=== PATIENT | female | born 1945 | race Caucasian/White ===

== ENCOUNTER 2017-11-09 10:04 | Inpatient (IN) | payer MEDICARE, BC ==
[2017-11-09] MEDS ORDERED: Sodium Chloride 0.9% 5 ML Syringe FLUSH PRN (17:33)
[2017-11-09] MEDS ORDERED: Potassium Chloride 20 MEQ in Premix Bag 1 BAG IV ONE ×3 (17:44→22:00)
[2017-11-09] MEDS ORDERED: Sodium Chloride 0.9% 500 ML IV SCH (18:00)
[2017-11-09] MEDS ORDERED: Nicotine 21 MG/24 Hr Patch ONE (19:44)
[2017-11-09] MEDS ORDERED: Simethicone 80 MG Tab.Chew ONE (19:45)
[2017-11-09] MEDS ORDERED: Atropine/Diphenoxylate 0.025-2.5 MG Tab ONE (19:46)
[2017-11-09] MEDS: Simethicone 80 MG Tab.Chew PO SCH ×2 (19:51→22:07)
[2017-11-09] MEDS: Nicotine 21 MG/24 Hr Patch TRDERM SCH (19:52)
[2017-11-09] MEDS: Atropine/Diphenoxylate 0.025-2.5 MG Tab PO PRN (19:53)
[2017-11-09] MEDS: Acetaminophen 325 MG Tab PO PRN (22:18)
[2017-11-09] MEDS: Zolpidem 5 MG Tab PO PRN (22:18)
[2017-11-10] MEDS: Magnesium Sulfate/Water 2 GM in Premix Bag 1 BAG IV ONE ×2 (01:07→01:59)
[2017-11-10] MEDS: Acetaminophen 325 MG Tab PO PRN ×2 (06:07→22:16)
[2017-11-10] MEDS: Atropine/Diphenoxylate 0.025-2.5 MG Tab PO PRN ×3 (06:16→20:39)
[2017-11-10] MEDS: Levothyroxine 50 MCG Tab PO SCH (07:41)
[2017-11-10 07:53] LABS: ANION GAP 18.4 mmol/L (5-15); CHLORIDE,CL 104 mmol/L (98-115); SODIUM,NA 149 mmol/L (136-145)
[2017-11-10] MEDS: Nicotine 21 MG/24 Hr Patch TRDERM SCH (09:59)
[2017-11-10] MEDS: Simethicone 80 MG Tab.Chew PO SCH ×4 (10:00→20:41)
[2017-11-10] MEDS: Pantoprazole 40 MG Vial IVPUSH SCH (10:07)
[2017-11-10] MEDS: Dextrose 5% in Water 1,000 ML IV SCH (10:21)
--- NOTE | 2017-11-10 12:03 | PN ---
11/10/2017 PATIENT NAME: WESLEY ORR CHIEF COMPLAINT: No longer having bright red blood per rectum. No diarrhea last night. No fever. Feels quite good today. HISTORY OF PRESENT ILLNESS: This 72-year-old female was admitted through the [facility]. She has seen Brenda Damon yesterday, nurse practitioner, and was basically admitted for ongoing diarrhea and electrolyte disturbance, hypokalemia, hypomagnesemia along with bright red blood per rectum. She did have approximately 2 g drop in her hemoglobin. The patient was recently discharged from [facility] for a colitis, which at that time she contributed to likely "food poisoning" when she ate some potato salad and her hospital course was not complicated. At that time, she was released on a bland diet. However, she continued to have diarrhea. Diagnostics while in the hospital; we did perform an MRCP, which did show an abnormal dilation of the intra and extra hepatic biliary system to the level of the ampulla. However, she had no obstructing stone. No acute cholecystitis. No mass was identified. She was discharged with expectation of receiving an ERCP as outpatient, however, she has not had this yet as of today. Yesterday, she was complaining of a poor appetite and fatigue, so abdominal distention along with abdominal pain. However, she does not have abdominal pain today. She noticed some bleeding in her stool, bright red on exam in the clinic. It was noted for her to have an external hemorrhoid without any bleeding or inflammation. PERTINENT CLINICAL WORKUP/FINDINGS: Include hemoglobin 12.1, RBC 3.6, white count 7.7, no neutrophilia. Sodium 136, potassium 2.9, BUN 2, creatinine 0.56, magnesium 1.6. The patient did have a positive lactoferrin on previous admission. Two full occult blood last night were positive. PHYSICAL EXAMINATION: VITAL SIGNS: Today, the patient is a full code. Temperature 97.9, blood pressure 135/78, O2 saturations 94% on room air, respiratory rate 20. GENERAL: The patient is alert and oriented. Does have slight pallor to her lower conjunctiva. LUNGS: Mild crackles lower bases, more fibrotic, resembling atelectasis. CV: Grade 1/6 murmur. SKIN: Slightly pallor. GI: No distention. No splenomegaly. Liver borders appear normal. Very hyperactive bowel tones. Negative rebound. Negative psoas. LOWER EXTREMITIES: No edema. LABORATORY DATA: Labs this morning includes hemoglobin 11.6, hematocrit 34.2. Sodium 149, potassium 4.2, BUN 1, creatinine 0.51. Drug clearance is 86, magnesium 2.2, calcium 8.0. PRIMARY HOSPITAL PROBLEMS: Diarrhea, dehydration, electrolyte disturbance, alcohol abuse, tobacco dependency, hypothyroidism. MEDICAL DECISION MAKING/PLAN: Discontinue telemetry. Add PPI therapy. Collect for C diff. Administer free water due to her hyponatremia. Monitor for any hemodynamic instability. Monitor for any further ongoing diarrhea or rectal bleeding. Continue with clear liquids for now. Doubtful for any concerning enteropathogens or any acute abdomen right now. We will hold off for any surgical consultation. However, patient will need outpatient ERCP. Monitor for any ongoing electrolyte disturbance and antidiarrheals today. /[id number]/MODL
[2017-11-10] MEDS: Zolpidem 5 MG Tab PO PRN (22:16)
[2017-11-11] MEDS: Dextrose 5% in Water 1,000 ML IV SCH (02:35)
[2017-11-11] MEDS ORDERED: Magnesium Sulfate/Water 4 GM in Premix Bag 1 BAG IV SCH (03:00)
[2017-11-11] MEDS: Acetaminophen 325 MG Tab PO PRN ×3 (03:53→22:19)
[2017-11-11] MEDS: Atropine/Diphenoxylate 0.025-2.5 MG Tab PO PRN ×3 (03:53→16:15)
[2017-11-11] MEDS: Levothyroxine 50 MCG Tab PO SCH (06:42)
[2017-11-11 07:46] LABS: ANION GAP 12.1 mmol/L (5-15); CHLORIDE,CL 104 mmol/L (98-115); SODIUM,NA 143 mmol/L (136-145)
[2017-11-11] MEDS: Nicotine 21 MG/24 Hr Patch TRDERM SCH (08:19)
[2017-11-11] MEDS: Simethicone 80 MG Tab.Chew PO SCH ×4 (08:21→20:11)
[2017-11-11] MEDS: Pantoprazole 40 MG Vial IVPUSH SCH ×2 (08:22→20:20)
[2017-11-11] MEDS ORDERED: Pantoprazole 40 MG in Sodium Chloride 0.9% 100 ML IV SCH (09:15)
[2017-11-11] MEDS ORDERED: Dextrose 5% in Water 1,000 ML IV SCH (10:00)
[2017-11-11] MEDS ORDERED: Potassium Chloride 100 ML IV ONE ×2 (10:00→12:00)
--- NOTE | 2017-11-11 12:17 | PN ---
11/11/2017 PATIENT NAME: EWSLEY ORR SUBJECTIVE: This is a 72-year-old female patient who was in the hospital about a week ago with diarrhea and colitis. She was discharged home. She stated that she had three or four days where she felt really well. She had no diarrheal stools, and then on Tuesday, she started having some diarrheal stools with some bright red blood per rectum. She was concerned, so she went to clinic on Tuesday. At that time, she was noted that she had a 2 g drop in her hemoglobin. She was having some bright red blood per rectum. She just did not feel good. She had some electrolyte disturbances, her potassium was low and her magnesium was low, so she was readmitted again to the hospital for observation status. Now today on rounds, the patient states that she is no longer having a bright red stool from her rectum, but she says that she is still having diarrhea. Her abdominal pain is better, but she just does not feel good. Her stomach still rumbles a lot and her stools are just not yet formed. She denies any fever or chills. She says that she is always cold. OBJECTIVE: VITAL SIGNS: Today, her temperature is 98.3, pulse is 72, blood pressure is 99/51, respiratory rate is 16, oxygen saturation on room air is 92- 95%. GENERAL: This is an elderly white female in no acute distress. LUNGS: Sounds are very diminished throughout lung sun. HEART: Tones are distant but regular rate and rhythm. No murmurs identified. ABDOMEN: Soft, nontender, nondistended. Bowel sounds are hyperactive. EXTREMITIES: No pedal edema noted on exam. LABORATORY DATA: The patient's lab work that was obtained today. Her hemoglobin was low at 10.9, yesterday it was 11.6. The patient's chemistry panel shows a sodium within normal range at 143, potassium is low at 2.7. The patient's BUN is 0 and creatinine is 0.50. Calcium is 7.44, but a corrected calcium is 8.5. Her total protein is 5.3, and her albumin is low at 2.68. IMPRESSION AND PLAN: 1. Would be diarrhea with gastrointestinal bleeding. Plan: The patient's hemoglobin is down. Today, it is 10.9, and yesterday 11.6, it was down in the clinic also. We will continue with simethicone for gas and distention 120 mg before meals and bedtime. I increased her Protonix IV to 40 mg IV every 12 hours due to her active bleeding. Her stool for C. diff was negative. Her occult blood was positive. I did order a stool culture and a stool for wbcs. I do think the patient is going to be need to set up for a colonoscopy to assess the lower GI bleeding. She can continue with Lomotil as needed for diarrhea. I did increase her diet from a liquid diet to a soft diet with no red food dye. The patient did have an MRCP performed previously, which did not show any masses or stones. 2. Low kidney function test. The patient's BUN is 0, creatinine is 0.50. I did stop her IV fluids. She is diuresing. She states that she starting to lose some weight. I am going to repeat her lab work in the morning to monitor her fluid electrolyte status. 3. Hypokalemia. Plan: The patient's potassium today is low at 2.7. I am going to give her a potassium cocktail of 40 mEq IV today, and recheck her potassium level at 6:00 p.m. this evening. Her corrected calcium was within normal range at 8.5. Chronic conditions. 4. History of smoker. Plan: We are going to have the patient wear nicotine patch 21 mg while in the hospital. 5. History of sleep disorder. Plan: Continue with Ambien 10 mg at bedtime as needed for sleep. 6. History of newly diagnosed hypothyroidism when she is in the hospital a week ago. We will continue with levothyroxine 50 mcg daily. OVERALL PLAN: I did increase the patient's IV Protonix to twice a day. I increased her diet to just a soft diet. She can continue with Lomotil as needed. Repeat lab work in the morning. I did add a stool culture and stool for wbcs., and I discussed with Dr. Amari Owens in regard to possible colonoscopy. The patient does have repeat labs ordered for the morning. We will recheck her potassium level after potassium cocktail later this evening. /[id number]/MODL
[2017-11-11] MEDS ORDERED: Atropine/Diphenoxylate 0.025-2.5 MG Tab PO PRN (20:15)
[2017-11-11] MEDS: Sodium Chloride 0.9% 500 ML IV SCH (20:27)
[2017-11-11] MEDS: Potassium Chloride 20 MEQ in Premix Bag 1 BAG IV SCH ×2 (20:27→23:49)
[2017-11-11] MEDS: Zolpidem 5 MG Tab PO PRN (22:18)
[2017-11-12] MEDS ORDERED: Magnesium Sulfate/Water 4 GM in Premix Bag 1 BAG IV SCH (03:00)
[2017-11-12] MEDS: Potassium Chloride 20 MEQ in Premix Bag 1 BAG IV SCH (04:17)
[2017-11-12] MEDS: Levothyroxine 50 MCG Tab PO SCH (06:31)
[2017-11-12] MEDS: Sodium Chloride 0.9% 500 ML IV SCH (06:35)
[2017-11-12] MEDS: Nicotine 21 MG/24 Hr Patch TRDERM SCH (08:31)
[2017-11-12] MEDS: Simethicone 80 MG Tab.Chew PO SCH ×4 (08:32→20:33)
[2017-11-12] MEDS: Pantoprazole 40 MG Vial IVPUSH SCH ×2 (08:32→20:43)
[2017-11-12 09:41] LABS: ANION GAP 11.5 mmol/L (5-15); CHLORIDE,CL 105 mmol/L (98-115); SODIUM,NA 142 mmol/L (136-145)
[2017-11-12] MEDS ORDERED: Magnesium Sulfate/Water 4 GM in Premix Bag 0.5 BAG IV ONE (11:00)
--- NOTE | 2017-11-12 11:35 | PCM.PN ---
- General Info Date of Service: 11/12/17 Subjective Update: MS. Arciniega reports overall feeling better, though still with significant cold intolerance, generalized weakness, and fatigue. Diarrhea stable. No further visible rectal bleeding. Occasional mild abdominal cramping which self resolves. Tolerating diet fairly well, but appetite poor. No new concerns. Nursing reports patient reluctance to get out of bed and ambulate much outside of going to the bathroom. - Patient Data Vitals - Most Recent: Last Vital Signs Temp 37.0 C 11/12/17 06:49 Pulse 86 11/12/17 06:49 Resp 16 11/12/17 06:49 BP 137/83 11/12/17 06:49 Pulse Ox 93 L 11/12/17 06:49 Weight - Most Recent: 56.427 kg I&O - Last 24 Hours: Intake & Output 11/11/17 11/12/17 11/12/17 22:59 06:59 14:59 Intake Total 485 750 Output Total 925 425 Balance -440 325 Lab Results Last 24 Hours: Laboratory Results - last 24 hr 11/11/17 11/12/17 11/12/17 Range/Units 18:45 09:05 09:05 WBC 5.7 (5.0-10.0) 10^3/uL RBC 3.73 L (3.80-5.50) 10^6/uL Hgb 12.2 (12.0-16.0) g/dL Hct 36.3 L (37.0-47.0) % MCV 97.3 H (82.0-92.0) fL MCH 32.7 H (27.0-31.0) pg MCHC 33.6 (32.0-36.0) g/dL RDW 14.2 (11.5-14.5) % Plt Count 592 H (150-300) 10^3/uL MPV 7.2 L (7.4-10.4) fL Neut % (Auto) 57.4 (50.0-70.0) % Lymph % (Auto) 29.3 (20.0-40.0) % [place] % (Auto) 11.0 H (2.0-8.0) % Eos % (Auto) 1.4 (1.0-3.0) % Baso % (Auto) 0.9 (0.0-1.0) % Neut # (Auto) 3.2 (2.5-7.0) 10^3/uL Lymph # (Auto) 1.7 (1.0-4.0) 10^3/uL [place] # (Auto) 0.6 (0.1-0.8) 10^3/uL Eos # (Auto) 0.1 (0.1-0.3) 10^3/uL Baso # (Auto) 0.1 (0.0-0.1) 10^3/uL Sodium 142 (136-145) mmol/L Potassium 3.0 L 4.3 (3.3-5.3) mmol/L Chloride 105 (98-115) mmol/L Carbon Dioxide 29.8 (21.0-32.0) mmol/L Anion Gap 11.5 (5-15) mmol/L BUN 1 L* (6-25) mg/dL Creatinine 0.51 (0.51-1.17) mg/dL Est Cr Clr Drug Dosing 86.21 mL/min Estimated GFR (MDRD) > 60 mL/min Glucose 129 mg/dL Calcium 8.2 L (8.7-10.3) mg/dL Magnesium 1.9 1.9 (1.8-2.4) mg/dL Total Bilirubin 0.3 (0.2-1.0) mg/dL AST 21 (15-37) U/L ALT 15 (12-78) U/L Alkaline Phosphatase 95 (46-116) IU/L Total Protein 6.4 (6.4-8.2) g/dL Albumin 3.21 (3.00-4.80) g/dL [facility] Results Last 24 Hours: Microbiology 11/11/17 11:26 Stool for WBCs - Final Stool / Feces Med Orders - Current: Current Medications Acetaminophen (Tylenol) 650 mg PO Q4H PRN PRN Reason: Abdominal Pain Last Admin: 11/11/17 22:19 Dose: 650 mg Bisacodyl (Dulcolax) 10 mg PO ONETIME ONE Stop: 11/12/17 16:01 Bisacodyl (Dulcolax) 10 mg PO ONETIME ONE Stop: 11/13/17 19:01 Diphenoxylate HCl/Atropine (Lomotil 0.025-2.5 Mg) 1 tab PO Q4H PRN PRN Reason: Diarrhea Stop: 11/12/17 12:00 Sodium Chloride (Normal Saline) 500 mls @ 25 mls/hr IV ASDIRECTED [facility] Last Admin: 11/12/17 06:35 Dose: 50 mls/hr Levothyroxine Sodium (Synthroid) 50 mcg PO ACBREAKFAST [facility] Last Admin: 11/12/17 06:31 Dose: 50 mcg Nicotine (Habitrol) 21 mg TRDERM DAILY [facility] Last Admin: 11/12/17 08:31 Dose: 21 mg Pantoprazole Sodium (Protonix Iv) 40 mg IVPUSH BID [facility] Last Admin: 11/12/17 08:32 Dose: 40 mg Polyethylene Glycol (Miralax) 238 gm PO ONETIME [facility] Stop: 11/13/17 18:01 Simethicone (Simethicone) 120 mg PO QID [facility] Last Admin: 11/12/17 08:32 Dose: 120 mg Sodium Chloride (Syrex Flush) 5 ml FLUSH Q8HR PRN PRN Reason: Keep Vein Open Zolpidem Tartrate (Ambien) 10 mg PO BEDTIME PRN PRN Reason: SLEEP Last Admin: 11/11/17 22:18 Dose: 10 mg Discontinued Medications Diphenoxylate HCl/Atropine (Lomotil 0.025-2.5 Mg) 1 tab PO Q6H PRN PRN Reason: Diarrhea Last Admin: 11/10/17 06:16 Dose: 1 tab Diphenoxylate HCl/Atropine (Lomotil 0.025-2.5 Mg) Confirm Administered Dose 1 tab .ROUTE .STK-MED ONE Stop: 11/09/17 19:47 Last Admin: 11/09/17 19:54 Dose: Not Given Diphenoxylate HCl/Atropine (Lomotil 0.025-2.5 Mg) 1 tab PO Q6H PRN PRN Reason: Diarrhea Last Admin: 11/11/17 16:15 Dose: 1 tab Potassium Chloride 20 meq/ (Premix) 100 mls @ 50 mls/hr IV ONETIME ONE Stop: 11/09/17 19:43 Last Admin: 11/09/17 17:59 Dose: 50 mls/hr Potassium Chloride 20 meq/ (Premix) 100 mls @ 50 mls/hr IV ONETIME ONE Stop: 11/09/17 21:59 Last Admin: 11/09/17 20:02 Dose: 50 mls/hr Sodium Chloride (Normal Saline) 500 mls @ 50 mls/hr IV ASDIRECTED [facility] Last Admin: 11/09/17 17:59 Dose: 50 mls/hr Potassium Chloride 20 meq/ (Premix) 100 mls @ 50 mls/hr IV ONETIME ONE Stop: 11/09/17 23:59 Last Admin: 11/09/17 22:37 Dose: 50 mls/hr Magnesium Sulfate 2 gm/ Premix 50 mls @ 150 mls/hr IV ONETIME ONE Stop: 11/09/17 18:19 Last Admin: 11/10/17 01:59 Dose: Not Given Dextrose/Water (Dextrose 5% In Water) 1,000 mls @ 62 mls/hr IV ASDIRECTED [facility] Last Admin: 11/11/17 02:35 Dose: 62 mls/hr Potassium Chloride (Kcl 20 Meq In Water 100 Ml) 100 mls @ 50 mls/hr IV ONETIME ONE Stop: 11/11/17 11:59 Last Admin: 11/11/17 09:55 Dose: 50 mls/hr Potassium Chloride (Kcl 20 Meq In Water 100 Ml) 100 mls @ 50 mls/hr IV ONETIME ONE Stop: 11/11/17 13:59 Last Admin: 11/11/17 12:05 Dose: 50 mls/hr Dextrose/Water (Dextrose 5% In Water) 1,000 mls @ 25 mls/hr IV ASDIRECTED [facility] Stop: 11/11/17 14:00 Magnesium Sulfate 4 gm/ Premix 100 mls @ 25 mls/hr IV ASDIRECTED [facility] Stop: 11/11/17 06:59 Last Admin: 11/11/17 23:42 Dose: Not Given Potassium Chloride 20 meq/ (Premix) 100 mls @ 50 mls/hr IV Q2H [facility] Stop: 11/12/17 01:44 Last Admin: 11/12/17 04:17 Dose: 50 mls/hr Magnesium Sulfate 4 gm/ Premix 100 mls @ 25 mls/hr IV ASDIRECTED [facility] Stop: 11/12/17 06:59 Magnesium Sulfate 4 gm/ Premix 0 mls @ 200 mls/hr IV ONETIME ONE Stop: 11/12/17 11:01 Nicotine (Habitrol) Confirm Administered Dose 21 mg .ROUTE .STK-MED ONE Stop: 11/09/17 19:45 Last Admin: 11/09/17 19:53 Dose: Not Given Pantoprazole Sodium (Protonix Iv) 40 mg IVPUSH DAILY [facility] Last Admin: 11/11/17 08:22 Dose: 40 mg Simethicone (Simethicone) Confirm Administered Dose 160 mg .ROUTE .STK-MED ONE Stop: 11/09/17 19:46 Last Admin: 11/09/17 19:54 Dose: Not Given - Exam Physical Findings Comments:: GENERAL: Pale, tired appearing elderly white female appearing slightly older than stated age sitting on hospital bed in no acute distress. HEENT: NC/AT. Conjunctiva clear. Nares patent without dischareg. Mucous membranes moist. CV: RRR, 1/6 systolic murmur at base without raidation, no rubs or gallops, 2+ radial pulses. PULMONARY: Normal effort, clear to auscultation bilaterally. ABDOMEN: Positive bowel sounds, mildly distended, nontender, no rebound/rigidity /guarding. EXTREMITIES: No edema, cyanosis, clubbing. MSK: Moves all extremities well. NEUROLOGICAL: No obvious defiicts. DERMATOLOGIC: No rash. PSYCHIATRIC: Alert, interactive, mildly flattened affect. - Problem List Review Problem List Initiated/Reviewed/Updated: Yes - My Orders Last 24 Hours: My Active Orders 11/11/17 20:00 Sodium Chloride 0.9% [Normal Saline] 500 ml IV ASDIRECTED - Assessment Assessment:: HPI Summary: Ms. Arciniega is a 72yoF with recently diagnosed severe hypothyroidism and recent hospitalization for colitis from 11/01/17 to 11/05/17 who was seen in the clinic on 11/09/17 for rectal bleeding and electrolyte abnormalities for which she was subsequently admitted. Hospitalization problems: # GI bleeding: Patient reported BRBPR and fecal occult positive. Scheduled for colonoscopy on 11/14. Continue PPI BID. # Anemia, acute blood loss: Hgb jose l 10.9 on 11/11. Improved today to 12.2. Recheck tomorrow. # Hypokalemia and hypomagnesemia: Likely related to several weeks of diarrhea and chronic alcohol use. Significant IV replacement has been given with improvement today. Recheck tomorrow. # Colitis: Onset of diarrhea 10/19. CT and MRI performed last hospitalization with colitis. Stool studies with +lactoferrin, but otherwise negative for bacterial etiology on culture and C. difficile testing. Ongoing, but improved. Continue loperamide prn. # Thrombocytosis: Likely reactive. Recheck tomorrow. # Intrahepatic ductal dilation: Noted on CT and MRI performed last hospitalization. LFTs without abnormality. No localized abdominal pain or indication for surgical consultation at this time. Plan on outpatient ERCP, as previously recommended by gastroenterology. # Hypothyroidism: Prior TSH >100. Continue levothyroxine. # Chronic alcohol use: Prior documentation noting significant chronic alcohol use. Will further clarify tomorrow. No current evidence of withdrawal. # Deconditioning: Consider PT consult if not improved. Chronic, stable problems: # Tobacco dependence: Precontemplative stage of change. Continue nicotine patch during hospitalization. # Insomnia: Continue zolpidem prn. Hospitalization details: # FEN: NS TKO. Electrolytes as above. Soft diet. # PPX: DVT with non-pharmacological ppx in setting of GIB. # Code status: FULL. # Disposition: Continue on inpatient status for ongoing close monitoring of GIB and electrolytes, with plan to perform colonoscopy on 11/14 and subsequent discharge if ongoing clinical improvement.
[2017-11-12] MEDS ORDERED: Bisacodyl 5 MG Tab PO ONE (16:00)
[2017-11-12] MEDS: Zolpidem 5 MG Tab PO PRN (22:25)
[2017-11-12] MEDS: Acetaminophen 325 MG Tab PO PRN (22:26)
[2017-11-13] MEDS: Levothyroxine 50 MCG Tab PO SCH (06:30)
[2017-11-13 07:45] LABS: ANION GAP 11.2 mmol/L (5-15); CHLORIDE,CL 106 mmol/L (98-115); SODIUM,NA 141 mmol/L (136-145)
[2017-11-13] MEDS: Simethicone 80 MG Tab.Chew PO SCH ×4 (09:35→20:45)
[2017-11-13] MEDS: Nicotine 21 MG/24 Hr Patch TRDERM SCH (09:36)
[2017-11-13] MEDS: Pantoprazole 40 MG Vial IVPUSH SCH ×2 (09:37→20:50)
[2017-11-13] MEDS ORDERED: Polyethylene Glycol 3350 Powder 238 GM Bot PO SCH (16:00)
--- NOTE | 2017-11-13 18:31 | PCM.PN ---
- General Info Date of Service: 11/13/17 Subjective Update: Ms. Arciniega reports that the prep for colonoscopy is going fair. Having difficulty drinking the liquid due to feeling like she doesn't have thirst to want anymore, but is not having nausea or abdominal pain. Ongoing significant cold intolerance, generalized weakness, and fatigue. No further visible rectal bleeding. Nursing reports ongoing patient reluctance to get out of bed and ambulate much outside of going to the bathroom, as well as mild perirectal erythema since starting the prep which has improved with barrier cream. - Patient Data Vitals - Most Recent: Last Vital Signs Temp 36.9 C 11/13/17 15:52 Pulse 79 11/13/17 15:52 Resp 16 11/13/17 15:52 BP 125/75 11/13/17 15:52 Pulse Ox 93 L 11/13/17 15:52 Weight - Most Recent: 56.427 kg I&O - Last 24 Hours: Intake & Output 11/13/17 11/13/17 11/13/17 06:59 14:59 22:59 Intake Total 150 1410 Output Total 600 Balance -450 1410 Lab Results Last 24 Hours: Laboratory Results - last 24 hr 11/13/17 11/13/17 Range/Units 07:00 07:00 WBC 5.1 (5.0-10.0) 10^3/uL RBC 3.74 L (3.80-5.50) 10^6/uL Hgb 12.0 (12.0-16.0) g/dL Hct 36.3 L (37.0-47.0) % MCV 97.1 H (82.0-92.0) fL MCH 32.2 H (27.0-31.0) pg MCHC 33.2 (32.0-36.0) g/dL RDW 13.9 (11.5-14.5) % Plt Count 613 H (150-300) 10^3/uL MPV 7.8 (7.4-10.4) fL Neut % (Auto) 44.9 L (50.0-70.0) % Lymph % (Auto) 38.4 (20.0-40.0) % [place] % (Auto) 13.1 H (2.0-8.0) % Eos % (Auto) 1.9 (1.0-3.0) % Baso % (Auto) 1.7 H (0.0-1.0) % Neut # (Auto) 2.2 L (2.5-7.0) 10^3/uL Lymph # (Auto) 2.0 (1.0-4.0) 10^3/uL [place] # (Auto) 0.7 (0.1-0.8) 10^3/uL Eos # (Auto) 0.1 (0.1-0.3) 10^3/uL Baso # (Auto) 0.1 (0.0-0.1) 10^3/uL Sodium 141 (136-145) mmol/L Potassium 3.8 (3.3-5.3) mmol/L Chloride 106 (98-115) mmol/L Carbon Dioxide 27.6 (21.0-32.0) mmol/L Anion Gap 11.2 (5-15) mmol/L BUN 1 L* (6-25) mg/dL Creatinine 0.58 (0.51-1.17) mg/dL Est Cr Clr Drug Dosing 75.80 mL/min Estimated GFR (MDRD) > 60 mL/min Glucose 78 mg/dL Calcium 8.1 L (8.7-10.3) mg/dL Magnesium 2.2 (1.8-2.4) mg/dL [facility] Results Last 24 Hours: Microbiology 11/11/17 11:26 Stool Aerobic Culture - Preliminary Stool / Feces Med Orders - Current: Current Medications Acetaminophen (Tylenol) 650 mg PO Q4H PRN PRN Reason: Abdominal Pain Last Admin: 11/12/17 22:26 Dose: 650 mg Bisacodyl (Dulcolax) 10 mg PO ONETIME ONE Stop: 11/13/17 19:01 Sodium Chloride (Normal Saline) 500 mls @ 25 mls/hr IV ASDIRECTED [facility] Last Admin: 11/12/17 06:35 Dose: 50 mls/hr Levothyroxine Sodium (Synthroid) 50 mcg PO ACBREAKFAST [facility] Last Admin: 11/13/17 06:30 Dose: 50 mcg Nicotine (Habitrol) 21 mg TRDERM DAILY [facility] Last Admin: 11/13/17 09:36 Dose: 21 mg Pantoprazole Sodium (Protonix Iv) 40 mg IVPUSH BID [facility] Last Admin: 11/13/17 09:37 Dose: 40 mg Simethicone (Simethicone) 120 mg PO QID [facility] Last Admin: 11/13/17 16:03 Dose: 120 mg Sodium Chloride (Syrex Flush) 5 ml FLUSH Q8HR PRN PRN Reason: Keep Vein Open Zolpidem Tartrate (Ambien) 10 mg PO BEDTIME PRN PRN Reason: SLEEP Last Admin: 11/12/17 22:25 Dose: 10 mg Discontinued Medications Bisacodyl (Dulcolax) 10 mg PO ONETIME ONE Stop: 11/12/17 16:01 Last Admin: 11/12/17 15:45 Dose: 10 mg Diphenoxylate HCl/Atropine (Lomotil 0.025-2.5 Mg) 1 tab PO Q6H PRN PRN Reason: Diarrhea Last Admin: 11/10/17 06:16 Dose: 1 tab Diphenoxylate HCl/Atropine (Lomotil 0.025-2.5 Mg) Confirm Administered Dose 1 tab .ROUTE .STK-MED ONE Stop: 11/09/17 19:47 Last Admin: 11/09/17 19:54 Dose: Not Given Diphenoxylate HCl/Atropine (Lomotil 0.025-2.5 Mg) 1 tab PO Q6H PRN PRN Reason: Diarrhea Last Admin: 11/11/17 16:15 Dose: 1 tab Diphenoxylate HCl/Atropine (Lomotil 0.025-2.5 Mg) 1 tab PO Q4H PRN PRN Reason: Diarrhea Stop: 11/12/17 12:00 Potassium Chloride 20 meq/ (Premix) 100 mls @ 50 mls/hr IV ONETIME ONE Stop: 11/09/17 19:43 Last Admin: 11/09/17 17:59 Dose: 50 mls/hr Potassium Chloride 20 meq/ (Premix) 100 mls @ 50 mls/hr IV ONETIME ONE Stop: 11/09/17 21:59 Last Admin: 11/09/17 20:02 Dose: 50 mls/hr Sodium Chloride (Normal Saline) 500 mls @ 50 mls/hr IV ASDIRECTED [facility] Last Admin: 11/09/17 17:59 Dose: 50 mls/hr Potassium Chloride 20 meq/ (Premix) 100 mls @ 50 mls/hr IV ONETIME ONE Stop: 11/09/17 23:59 Last Admin: 11/09/17 22:37 Dose: 50 mls/hr Magnesium Sulfate 2 gm/ Premix 50 mls @ 150 mls/hr IV ONETIME ONE Stop: 11/09/17 18:19 Last Admin: 11/10/17 01:59 Dose: Not Given Dextrose/Water (Dextrose 5% In Water) 1,000 mls @ 62 mls/hr IV ASDIRECTED [facility] Last Admin: 11/11/17 02:35 Dose: 62 mls/hr Potassium Chloride (Kcl 20 Meq In Water 100 Ml) 100 mls @ 50 mls/hr IV ONETIME ONE Stop: 11/11/17 11:59 Last Admin: 11/11/17 09:55 Dose: 50 mls/hr Potassium Chloride (Kcl 20 Meq In Water 100 Ml) 100 mls @ 50 mls/hr IV ONETIME ONE Stop: 11/11/17 13:59 Last Admin: 11/11/17 12:05 Dose: 50 mls/hr Dextrose/Water (Dextrose 5% In Water) 1,000 mls @ 25 mls/hr IV ASDIRECTED [facility] Stop: 11/11/17 14:00 Magnesium Sulfate 4 gm/ Premix 100 mls @ 25 mls/hr IV ASDIRECTED [facility] Stop: 11/11/17 06:59 Last Admin: 11/11/17 23:42 Dose: Not Given Potassium Chloride 20 meq/ (Premix) 100 mls @ 50 mls/hr IV Q2H [facility] Stop: 11/12/17 01:44 Last Admin: 11/12/17 04:17 Dose: 50 mls/hr Magnesium Sulfate 4 gm/ Premix 100 mls @ 25 mls/hr IV ASDIRECTED [facility] Stop: 11/12/17 06:59 Last Admin: 11/12/17 11:37 Dose: Not Given Magnesium Sulfate 4 gm/ Premix 0 mls @ 200 mls/hr IV ONETIME ONE Stop: 11/12/17 11:01 Last Admin: 11/12/17 11:39 Dose: 25 mls/hr Nicotine (Habitrol) Confirm Administered Dose 21 mg .ROUTE .STK-MED ONE Stop: 11/09/17 19:45 Last Admin: 11/09/17 19:53 Dose: Not Given Pantoprazole Sodium (Protonix Iv) 40 mg IVPUSH DAILY [facility] Last Admin: 11/11/17 08:22 Dose: 40 mg Polyethylene Glycol (Miralax) 238 gm PO ONETIME [facility] Stop: 11/13/17 18:01 Last Admin: 11/13/17 15:54 Dose: 238 gm Simethicone (Simethicone) Confirm Administered Dose 160 mg .ROUTE .STK-MED ONE Stop: 11/09/17 19:46 Last Admin: 11/09/17 19:54 Dose: Not Given - Exam Physical Findings Comments:: GENERAL: Pale, tired appearing elderly white female appearing slightly older than stated age sitting on hospital bed in no acute distress. HEENT: NC/AT. Conjunctiva clear. Nares patent without dischareg. Mucous membranes moist. CV: RRR, 2+ radial pulses. PULMONARY: Normal effort. ABDOMEN: Mildly distended, nontender, no rebound/rigidity/guarding. EXTREMITIES: No edema, cyanosis, clubbing. MSK: Ambulates without difficulty. NEUROLOGICAL: No obvious deficits. DERMATOLOGIC: No rash. PSYCHIATRIC: Alert, interactive, mildly flattened affect. - Problem List Review Problem List Initiated/Reviewed/Updated: Yes - My Orders Last 24 Hours: My Active Orders 11/13/17 08:00 Antiembolic Hose [OM.PC] Routine 11/14/17 05:11 BASIC METABOLIC PANEL,BMP [CHEM] AM MAGNESIUM [CHEM] AM - Assessment Assessment:: HPI Summary: Ms. Arciniega is a 72yoF with recently diagnosed severe hypothyroidism and recent hospitalization for colitis from 11/01/17 to 11/05/17 who was seen in the clinic on 11/09/17 for rectal bleeding and electrolyte abnormalities for which she was subsequently admitted. Hospitalization problems: # GI bleeding: Patient reported BRBPR and fecal occult positive. Scheduled for colonoscopy on 11/14. Continue PPI BID. # Anemia, acute blood loss: Hgb jose l 10.9 on 11/11. Stable today at 12. Recheck tomorrow. # Hypokalemia and hypomagnesemia: Likely related to several weeks of diarrhea and chronic alcohol use. Significant IV replacement has been given with stability today. Recheck tomorrow. # Colitis: Onset of diarrhea 10/19. CT and MRI performed last hospitalization with colitis. Stool studies with +lactoferrin, but otherwise negative for bacterial etiology on culture and C. difficile testing. Ongoing, but improved. Continue loperamide prn following colonoscopy. # Thrombocytosis: Likely reactive. Relatively stable. Recheck tomorrow. # Intrahepatic ductal dilation: Noted on CT and MRI performed last hospitalization. LFTs without abnormality. No localized abdominal pain or indication for surgical consultation at this time. Plan on outpatient ERCP, as previously recommended by gastroenterology. # Hypothyroidism: Prior TSH >100. Continue levothyroxine. # Chronic alcohol use: Prior documentation noting significant chronic alcohol use. Will further clarify tomorrow. No current evidence of withdrawal. # Deconditioning: Consider PT consult if not improved. Chronic, stable problems: # Tobacco dependence: Precontemplative stage of change. Continue nicotine patch during hospitalization. # Insomnia: Continue zolpidem prn. Hospitalization details: # FEN: NS TKO. Electrolytes as above. Clear liquids currently; NPO after midnight for colonoscopy tomorrow. # PPX: DVT with non-pharmacological ppx in setting of GIB. # Code status: FULL. # Disposition: Continue on inpatient status for ongoing close monitoring of GIB and electrolytes, with plan to perform colonoscopy on 11/14 and subsequent discharge likely on 11/15 if ongoing clinical improvement.
[2017-11-13] MEDS ORDERED: Bisacodyl 5 MG Tab PO ONE (19:00)
[2017-11-13] MEDS: Acetaminophen 325 MG Tab PO PRN (22:30)
[2017-11-13] MEDS: Zolpidem 5 MG Tab PO PRN (22:31)
[2017-11-14] MEDS: Levothyroxine 50 MCG Tab PO SCH (06:32)
[2017-11-14 07:53] LABS: ANION GAP 8.9 mmol/L (5-15); CHLORIDE,CL 102 mmol/L (98-115); SODIUM,NA 135 mmol/L (136-145)
[2017-11-14] MEDS: Lactated Ringers 1,000 ML IV SCH ×2 (08:00→13:49)
[2017-11-14] MEDS ORDERED: Potassium Chloride 100 ML IV ONE ×3 (08:31→12:40)
[2017-11-14] MEDS: Pantoprazole 40 MG Vial IVPUSH SCH ×2 (08:44→20:20)
[2017-11-14] MEDS: Nicotine 21 MG/24 Hr Patch TRDERM SCH (08:45)
[2017-11-14] MEDS: Simethicone 80 MG Tab.Chew PO SCH ×4 (09:00→20:20)
--- NOTE | 2017-11-14 10:20 | PCM.PN ---
- General Info Date of Service: 11/14/17 Subjective Update: Ms. Arciniega reports that she overall feels OK. She completed the prep for colonoscopy. Abdominal cramping is minimal. No nausea or emesis. Ongoing significant cold intolerance, generalized weakness, and fatigue. No further visible rectal bleeding. Nursing reports ongoing patient reluctance to get out of bed and ambulate much outside of going to the bathroom. - Review of Systems General: Reports: Appetite - Patient Data Vitals - Most Recent: Last Vital Signs Temp 37.1 C 11/14/17 06:39 Pulse 79 11/14/17 06:39 Resp 16 11/14/17 06:39 BP 119/62 11/14/17 06:39 Pulse Ox 92 L 11/14/17 06:39 Weight - Most Recent: 56.427 kg I&O - Last 24 Hours: Intake & Output 11/13/17 11/14/17 11/14/17 22:59 06:59 14:59 Intake Total 880 100 Output Total 950 400 Balance -70 -300 Lab Results Last 24 Hours: Laboratory Results - last 24 hr 11/14/17 11/14/17 Range/Units 07:10 07:10 WBC 6.0 (5.0-10.0) 10^3/uL RBC 3.81 (3.80-5.50) 10^6/uL Hgb 12.1 (12.0-16.0) g/dL Hct 36.6 L (37.0-47.0) % MCV 96.2 H (82.0-92.0) fL MCH 31.7 H (27.0-31.0) pg MCHC 33.0 (32.0-36.0) g/dL RDW 14.2 (11.5-14.5) % Plt Count 591 H (150-300) 10^3/uL MPV 7.3 L (7.4-10.4) fL Neut % (Auto) 53.9 (50.0-70.0) % Lymph % (Auto) 33.5 (20.0-40.0) % [place] % (Auto) 9.5 H (2.0-8.0) % Eos % (Auto) 1.9 (1.0-3.0) % Baso % (Auto) 1.2 H (0.0-1.0) % Neut # (Auto) 3.2 (2.5-7.0) 10^3/uL Lymph # (Auto) 2.0 (1.0-4.0) 10^3/uL [place] # (Auto) 0.6 (0.1-0.8) 10^3/uL Eos # (Auto) 0.1 (0.1-0.3) 10^3/uL Baso # (Auto) 0.1 (0.0-0.1) 10^3/uL Sodium 135 L (136-145) mmol/L Potassium 3.0 L (3.3-5.3) mmol/L Chloride 102 (98-115) mmol/L Carbon Dioxide 27.1 (21.0-32.0) mmol/L Anion Gap 8.9 (5-15) mmol/L BUN 1 L* (6-25) mg/dL Creatinine 0.55 (0.51-1.17) mg/dL Est Cr Clr Drug Dosing 79.94 mL/min Estimated GFR (MDRD) > 60 mL/min Glucose 97 mg/dL Calcium 8.1 L (8.7-10.3) mg/dL Magnesium 2.1 (1.8-2.4) mg/dL [facility] Results Last 24 Hours: Microbiology 11/11/17 11:26 Stool Aerobic Culture - Preliminary Stool / Feces Med Orders - Current: Current Medications Acetaminophen (Tylenol) 650 mg PO Q4H PRN PRN Reason: Abdominal Pain Last Admin: 11/13/17 22:30 Dose: 650 mg Sodium Chloride (Normal Saline) 500 mls @ 25 mls/hr IV ASDIRECTED [facility] Last Admin: 11/12/17 06:35 Dose: 50 mls/hr Lactated Ringer's (Ringers, Lactated) 1,000 mls @ 50 mls/hr IV ASDIRECTED [facility] Potassium Chloride (Kcl 20 Meq In Water 100 Ml) 100 mls @ 50 mls/hr IV ONETIME ONE Stop: 11/14/17 10:30 Last Admin: 11/14/17 08:49 Dose: 50 mls/hr Potassium Chloride (Kcl 20 Meq In Water 100 Ml) 100 mls @ 50 mls/hr IV ONETIME ONE Stop: 11/14/17 12:39 Potassium Chloride (Kcl 20 Meq In Water 100 Ml) 100 mls @ 50 mls/hr IV ONETIME ONE Stop: 11/14/17 14:39 Levothyroxine Sodium (Synthroid) 50 mcg PO ACBREAKFAST [facility] Last Admin: 11/14/17 06:32 Dose: 50 mcg Nicotine (Habitrol) 21 mg TRDERM DAILY [facility] Last Admin: 11/14/17 08:45 Dose: 21 mg Pantoprazole Sodium (Protonix Iv) 40 mg IVPUSH BID [facility] Last Admin: 11/14/17 08:44 Dose: 40 mg Simethicone (Simethicone) 120 mg PO QID [facility] Last Admin: 11/13/17 20:45 Dose: 120 mg Sodium Chloride (Syrex Flush) 5 ml FLUSH Q8HR PRN PRN Reason: Keep Vein Open Zolpidem Tartrate (Ambien) 10 mg PO BEDTIME PRN PRN Reason: SLEEP Last Admin: 11/13/17 22:31 Dose: 10 mg Discontinued Medications Bisacodyl (Dulcolax) 10 mg PO ONETIME ONE Stop: 11/12/17 16:01 Last Admin: 11/12/17 15:45 Dose: 10 mg Bisacodyl (Dulcolax) 10 mg PO ONETIME ONE Stop: 11/13/17 19:01 Last Admin: 11/13/17 20:45 Dose: 10 mg Diphenoxylate HCl/Atropine (Lomotil 0.025-2.5 Mg) 1 tab PO Q6H PRN PRN Reason: Diarrhea Last Admin: 11/10/17 06:16 Dose: 1 tab Diphenoxylate HCl/Atropine (Lomotil 0.025-2.5 Mg) Confirm Administered Dose 1 tab .ROUTE .STK-MED ONE Stop: 11/09/17 19:47 Last Admin: 11/09/17 19:54 Dose: Not Given Diphenoxylate HCl/Atropine (Lomotil 0.025-2.5 Mg) 1 tab PO Q6H PRN PRN Reason: Diarrhea Last Admin: 11/11/17 16:15 Dose: 1 tab Diphenoxylate HCl/Atropine (Lomotil 0.025-2.5 Mg) 1 tab PO Q4H PRN PRN Reason: Diarrhea Stop: 11/12/17 12:00 Potassium Chloride 20 meq/ (Premix) 100 mls @ 50 mls/hr IV ONETIME ONE Stop: 11/09/17 19:43 Last Admin: 11/09/17 17:59 Dose: 50 mls/hr Potassium Chloride 20 meq/ (Premix) 100 mls @ 50 mls/hr IV ONETIME ONE Stop: 11/09/17 21:59 Last Admin: 11/09/17 20:02 Dose: 50 mls/hr Sodium Chloride (Normal Saline) 500 mls @ 50 mls/hr IV ASDIRECTED [facility] Last Admin: 11/09/17 17:59 Dose: 50 mls/hr Potassium Chloride 20 meq/ (Premix) 100 mls @ 50 mls/hr IV ONETIME ONE Stop: 11/09/17 23:59 Last Admin: 11/09/17 22:37 Dose: 50 mls/hr Magnesium Sulfate 2 gm/ Premix 50 mls @ 150 mls/hr IV ONETIME ONE Stop: 11/09/17 18:19 Last Admin: 11/10/17 01:59 Dose: Not Given Dextrose/Water (Dextrose 5% In Water) 1,000 mls @ 62 mls/hr IV ASDIRECTED [facility] Last Admin: 11/11/17 02:35 Dose: 62 mls/hr Potassium Chloride (Kcl 20 Meq In Water 100 Ml) 100 mls @ 50 mls/hr IV ONETIME ONE Stop: 11/11/17 11:59 Last Admin: 11/11/17 09:55 Dose: 50 mls/hr Potassium Chloride (Kcl 20 Meq In Water 100 Ml) 100 mls @ 50 mls/hr IV ONETIME ONE Stop: 11/11/17 13:59 Last Admin: 11/11/17 12:05 Dose: 50 mls/hr Dextrose/Water (Dextrose 5% In Water) 1,000 mls @ 25 mls/hr IV ASDIRECTED [facility] Stop: 11/11/17 14:00 Magnesium Sulfate 4 gm/ Premix 100 mls @ 25 mls/hr IV ASDIRECTED [facility] Stop: 11/11/17 06:59 Last Admin: 11/11/17 23:42 Dose: Not Given Potassium Chloride 20 meq/ (Premix) 100 mls @ 50 mls/hr IV Q2H [facility] Stop: 11/12/17 01:44 Last Admin: 11/12/17 04:17 Dose: 50 mls/hr Magnesium Sulfate 4 gm/ Premix 100 mls @ 25 mls/hr IV ASDIRECTED [facility] Stop: 11/12/17 06:59 Last Admin: 11/12/17 11:37 Dose: Not Given Magnesium Sulfate 4 gm/ Premix 0 mls @ 200 mls/hr IV ONETIME ONE Stop: 11/12/17 11:01 Last Admin: 11/12/17 11:39 Dose: 25 mls/hr Nicotine (Habitrol) Confirm Administered Dose 21 mg .ROUTE .STK-MED ONE Stop: 11/09/17 19:45 Last Admin: 11/09/17 19:53 Dose: Not Given Pantoprazole Sodium (Protonix Iv) 40 mg IVPUSH DAILY [facility] Last Admin: 11/11/17 08:22 Dose: 40 mg Polyethylene Glycol (Miralax) 238 gm PO ONETIME [facility] Stop: 11/13/17 18:01 Last Admin: 11/13/17 15:54 Dose: 238 gm Simethicone (Simethicone) Confirm Administered Dose 160 mg .ROUTE .STK-MED ONE Stop: 11/09/17 19:46 Last Admin: 11/09/17 19:54 Dose: Not Given - Exam Physical Findings Comments:: GENERAL: Pale, tired appearing elderly white female appearing slightly older than stated age sitting on hospital bed in no acute distress. HEENT: [place]/AT. Conjunctiva clear. Nares patent without dischareg. Mucous membranes moist. CV: RRR, 2+ radial pulses. PULMONARY: Normal effort. ABDOMEN: Mildly distended, nontender, no rebound/rigidity/guarding. EXTREMITIES: No edema, cyanosis, clubbing. MSK: Moves all extremities well. NEUROLOGICAL: No obvious deficits. DERMATOLOGIC: No rash. PSYCHIATRIC: Alert, interactive. - Problem List Review Problem List Initiated/Reviewed/Updated: Yes - Assessment Assessment:: HPI Summary: Ms. Arciniega is a 72yoF with recently diagnosed severe hypothyroidism and recent hospitalization for colitis from 11/01/17 to 11/05/17 who was seen in the clinic on 11/09/17 for rectal bleeding and electrolyte abnormalities for which she was subsequently admitted. Hospitalization problems: # GI bleeding: Patient reported BRBPR and fecal occult positive. No further bleeding in the past few days. Await colonoscopy results. Continue PPI BID, with plan to switch to oral. # Anemia, acute blood loss: Hgb jose l 10.9 on 11/11. Stable today around 12. Recheck tomorrow. # Hypokalemia and hypomagnesemia: Likely related to several weeks of diarrhea and chronic alcohol use. Significant IV replacement has been given with mild decrease in potassium today for which she is receiving replacement. Recheck tomorrow. # Colitis: Onset of diarrhea 10/19. CT and MRI performed last hospitalization with colitis. Stool studies with +lactoferrin, but otherwise negative for bacterial etiology on culture and C. difficile testing. Ongoing, but improved. Continue loperamide prn following colonoscopy. # Thrombocytosis: Likely reactive. Relatively stable. Recheck tomorrow. # Intrahepatic ductal dilation: Noted on CT and MRI performed last hospitalization. LFTs without abnormality. No localized abdominal pain or indication for surgical consultation at this time. Plan on outpatient ERCP, as previously recommended by gastroenterology. # Hypothyroidism: Prior TSH >100. Continue levothyroxine. Repeat TSH due in early December. # Alcohol dependence, in remission: History of significant daily alcohol use of "too many" beers. Over the course of the last few months, has been gradually cutting back. She has had no alcohol in almost a month and was drinking 2 beers daily prior to that for about a month. Encouraged ongoing cessation, which she feels confident in being able to maintain sobriety. # Deconditioning: Consider PT consult if not improved. Chronic, stable problems: # Tobacco dependence: Precontemplative stage of change. Continue nicotine patch during hospitalization. # Insomnia: Continue zolpidem prn. Hospitalization details: # FEN: NS TKO. Electrolytes as above. Advance diet following colonoscopy. # PPX: DVT with non-pharmacological ppx in setting of GIB. # Code status: FULL. # Disposition: Continue on inpatient status. Anticipate discharge tomorrow on if tolerating diet.
[2017-11-14] MEDS ORDERED: Midazolam 1 MG/ML 2 ML SDV ONE (11:11)
[2017-11-14] MEDS ORDERED: Propofol 200 MG/20 ML SDV ONE (11:11)
[2017-11-14] MEDS ORDERED: Midazolam 1 MG/ML 2 ML SDV IV ONE (12:40)
[2017-11-14] MEDS ORDERED: Propofol 200 MG/20 ML SDV IV ONE (12:40)
--- NOTE | 2017-11-14 13:02 | PCM.OPNOTE ---
- General Post-Op/Procedure Note Date of Surgery/Procedure: 11/14/17 Operative Procedure(s): Colonoscopy Findings: Mild colitis at the sigmoid colon and distal descending colon. Pre Op Diagnosis: Severe diarrhea, anemia, rule out lower GI malignancy, rule out lower GI bleeding lesion. Anesthesia Technique: MAC Primary Surgeon: Amari Owens Condition: Good Free Text/Narrative:: INFORMED CONSENT: Patient is here today for elective colonoscopy. All aspects of this procedure have been discussed with the patient. All possible complications also, including possibility of perforation, infection, pain, bleeding and unknown complications. In the event of perforation patient may need to have abdominal exploration, colon resection, colostomy and even was discussed. Anesthetic complications were handled by anesthesia department. The patient understands fully well. Patient did not have any further questions for me at the end of my interview. The patient wishes for me to proceed. PREOPERATIVE DIAGNOSIS/INDICATIONS: [Lower GI bleeding, anemia, diarrhea.] POSTOPERATIVE DIAGNOSIS: [] INSTRUMENT USED: Olympus videocolonoscope. ASA CLASSIFICATION: [2] ANESTHESIA: Continuous EKG, oximetry and intermittent blood pressure and respiratory monitoring were performed throughout the procedure. IV Versed and Fentanyl were administered. PROCEDURE PERFORMED: Colonoscopy POSITIONS OF PATIENT: Left lateral. RECTUM: Normal. SIGMOID COLON: Mild inflammation of the sigmoid colon is noted.. DESCENDING COLON: Mild inflammation is noted. Scattered diverticula without infection.. SPLENIC FLEXURE: Normal. TRANSVERSE COLON: Normal. HEPATIC FLEXURE: Normal. ASCENDING COLON: Normal. CECUM: Normal. ILEOCECAL VALVE: Normal. BIOPSY: None. TOLERANCE: Excellent. COMPLICATIONS: None. Intake & Output 11/13/17 11/14/17 11/14/17 22:59 06:59 14:59 Intake Total 880 100 Output Total 950 400 Balance -70 -300 Mild inflammatory changes noted of the sigmoid colon and distal descending colon. Otherwise negative. Scattered diverticuli.
[2017-11-14] MEDS: Acetaminophen 325 MG Tab PO PRN (20:20)
[2017-11-14] MEDS: Zolpidem 5 MG Tab PO PRN (21:46)
[2017-11-15 06:34] VITALS: BP 124/71
[2017-11-15] MEDS: Levothyroxine 50 MCG Tab PO SCH (07:19)
[2017-11-15 07:52] LABS: CHLORIDE,CL 104 mmol/L (98-115); SODIUM,NA 142 mmol/L (136-145)
[2017-11-15] MEDS: Simethicone 80 MG Tab.Chew PO SCH (08:51)
[2017-11-15] MEDS: Nicotine 21 MG/24 Hr Patch TRDERM SCH (08:51)
[2017-11-15] MEDS: Pantoprazole 40 MG Vial IVPUSH SCH (08:51)
--- NOTE | 2017-11-15 09:58 | PCM.DCSUM1 ---
Discharge Summary - Hospital Course Brief History: 72yoF who was admitted after being evaluated in the [facility] on 11/09/17 for rectal bleeding and electrolyte abnormalities. Patient with recently diagnosed severe hypothyroidism and recent hospitalization for colitis from 11/01/17 to 11/05/17. Diagnosis: Stroke: No - Discharge Data Discharge Date: 11/15/17 Discharge Disposition: Home, Self-Care 01 Condition: Good - Patient Summary/Data Operative Procedure(s) Performed: Colonoscopy - Patient Instructions Diet: GI Soft/Low Residue/Low Fiber Activity: As Tolerated, Rest and Relax Today Showering/Bathing: May Shower Notify Provider of: Fever, Increased Pain Other/Special Instructions: Report any abdominal pain, vomiting, worsening diarrhea or rectal bleeding or weakness and lightheadedness - Discharge Plan *PRESCRIPTION DRUG MONITORING PROGRAM REVIEWED*: Not Applicable *COPY OF PRESCRIPTION DRUG MONITORING REPORT IN PATIENT VICKIE: Not Applicable Prescriptions/Med Rec: Omeprazole 20 mg PO BIDAC #60 cap.sr Home Medications: Home Meds Zolpidem [Ambien] 10 mg PO BEDTIME PRN 11/11/15 [History] Calcium Carbonate/Vitamin D3 [Caltrate 600 Plus D3 Tablet] 1 each PO BID [History] Levothyroxine [Synthroid] 50 mcg PO ACBREAKFAST 11/01/17 [History] Multivitamin with Minerals [Multiple Vitamin] 1 tab PO DAILY 11/01/17 [History] Diphenoxylate HCl/Atropine [Lomotil] 1 each PO Q6H PRN #15 tablet 11/05/17 [Rx] Potassium Chloride [K-Tab ER] 8 meq PO DAILY #30 tablet.er 11/05/17 [Rx] Simethicone 125 mg PO QID #60 tab.chew 11/05/17 [Rx] Omeprazole 20 mg PO BIDAC #60 cap.sr 11/15/17 [Rx] Referrals: Cassi Garcia PA-C [Primary Care Provider] - 11/24/17 (Appointment with Cassi already scheduled this date) - Discharge Summary/Plan Comment DC Time >30 min.: Yes Discharge Summary/Plan Comment: Final diagnosis Colitis Diarrhea Intrahepatic ductal dilation Lower GI bleeding Anemia Diverticula, scattered Electrolyte disturbance, Thrombocytosis Hypothyroidism Alcohol dependence Tobacco dependence Brief history 72yoF who was admitted after being evaluated in the [facility] on 11/09/17 for rectal bleeding and electrolyte abnormalities. Patient with recently diagnosed severe hypothyroidism and recent hospitalization for colitis from 11/01 to 11/05/17. Hospital course She was initially admitted due to significant electrolyte disturbance of magnesium and potassium which were corrected. Although she did have ongoing periodic bloody diarrhea it slowed down considerably and her hemoglobin leveled out. She did not require any blood transfusions. A colonoscopy was eventually performed which demonstrated the patient to have scattered diverticula and some mild inflammatory changes of the colon which PPI was initiated. Her colitis onset started October 19. CT and MRI performed last hospitalization did demonstrate intrahepatic ductal dilation in which she was scheduled for ERCP as outpatient. LFTs without abnormality she had no localized pain or any indication for surgical consultation during this hospitalization. Stool studies with +lactoferrin, but otherwise negative for bacterial etiology on culture and C. difficile testing. She did have a positive fecal occult testing while in the hospital. For her electrolyte disturbance of Hypokalemia and hypomagnesemia it was determined likely etiology of EtOH along with several weeks of diarrhea. Hgb jose l 10.9 on 11/11 however upon discharge her hemoglobin was 11.8. Ongoing smoking cessation was encouraged. Was felt that a thrombocytosis however significant was likely reactive. She did tolerate an advanced diet with difficulty and on the morning of discharge she was afebrile, VSS, no abdominal pain, with no bloody diarrhea although 2-3 loose stools past 24 hours. Medication changes/adjustments on discharge Omeprazole, 20 mg twice a day before meals, (newly added) Hold until follow-up: Aspirin products, MVI, Coni-D, fish oil, glucosamine/ chondroitin Continue with potassium 8 mEq daily all other medications Disposition Patient will be discharged from [facility], her care has been optimized, she will receive an ERCP as outpatient, c/s placed Follow Cassi Garcia PA-C November 24, he was given instructions regarding returning options Recommendations at follow-up ERCP follow-up/results BMP, CBC, MG Ongoing tobacco cessation education, refused nicotine patch on discharge, precontemplative phase on DC Inquire regarding EtOH use Advance diet Consider placing her back on held medication other than ASA 45 minutes spent on discharge planning, education, medication instruction, detailed home instructions instructions and care coordination. - Patient Data Vitals - Most Recent: Last Vital Signs Temp 97.3 F 11/15/17 06:33 Pulse 80 11/15/17 08:35 Resp 18 11/15/17 06:33 BP 124/71 11/15/17 06:33 Pulse Ox 93 L 11/15/17 08:35 Weight - Most Recent: 124 lb 6.4 oz I&O - Last 24 hours: Intake & Output 11/14/17 11/15/17 11/15/17 22:59 06:59 14:59 Intake Total 970 75 Output Total 950 400 Balance 20 -325 Lab Results - Last 24 hrs: Laboratory Results - last 24 hr 11/15/17 11/15/17 Range/Units 07:15 07:15 WBC 6.0 (5.0-10.0) 10^3/uL RBC 3.67 L (3.80-5.50) 10^6/uL Hgb 11.8 L (12.0-16.0) g/dL Hct 35.8 L (37.0-47.0) % MCV 97.4 H (82.0-92.0) fL MCH 32.1 H (27.0-31.0) pg MCHC 32.9 (32.0-36.0) g/dL RDW 14.1 (11.5-14.5) % Plt Count 584 H (150-300) 10^3/uL MPV 7.5 (7.4-10.4) fL Neut % (Auto) 53.3 (50.0-70.0) % Lymph % (Auto) 31.8 (20.0-40.0) % [place] % (Auto) 11.7 H (2.0-8.0) % Eos % (Auto) 2.1 (1.0-3.0) % Baso % (Auto) 1.1 H (0.0-1.0) % Neut # (Auto) 3.2 (2.5-7.0) 10^3/uL Lymph # (Auto) 1.9 (1.0-4.0) 10^3/uL [place] # (Auto) 0.7 (0.1-0.8) 10^3/uL Eos # (Auto) 0.1 (0.1-0.3) 10^3/uL Baso # (Auto) 0.1 (0.0-0.1) 10^3/uL Sodium 142 (136-145) mmol/L Potassium 4.0 (3.3-5.3) mmol/L Chloride 104 (98-115) mmol/L Carbon Dioxide 27.0 (21.0-32.0) mmol/L Anion Gap 15.0 (5-15) mmol/L BUN 1 L* (6-25) mg/dL Creatinine 0.55 (0.51-1.17) mg/dL Est Cr Clr Drug Dosing 79.94 mL/min Estimated GFR (MDRD) > 60 mL/min Glucose 84 mg/dL Calcium 8.3 L (8.7-10.3) mg/dL Med Orders - Current: Current Medications Acetaminophen (Tylenol) 650 mg PO Q4H PRN PRN Reason: Abdominal Pain Last Admin: 11/14/17 20:20 Dose: 650 mg Sodium Chloride (Normal Saline) 500 mls @ 25 mls/hr IV ASDIRECTED [facility] Last Admin: 11/12/17 06:35 Dose: 50 mls/hr Lactated Ringer's (Ringers, Lactated) 1,000 mls @ 50 mls/hr IV ASDIRECTED [facility] Last Admin: 11/14/17 13:49 Dose: 50 mls/hr Levothyroxine Sodium (Synthroid) 50 mcg PO ACBREAKFAST [facility] Last Admin: 11/15/17 07:19 Dose: 50 mcg Nicotine (Habitrol) 21 mg TRDERM DAILY [facility] Last Admin: 11/15/17 08:51 Dose: 21 mg Pantoprazole Sodium (Protonix Iv) 40 mg IVPUSH BID [facility] Last Admin: 11/15/17 08:51 Dose: 40 mg Simethicone (Simethicone) 120 mg PO QID [facility] Last Admin: 11/15/17 08:51 Dose: 120 mg Sodium Chloride (Syrex Flush) 5 ml FLUSH Q8HR PRN PRN Reason: Keep Vein Open Zolpidem Tartrate (Ambien) 10 mg PO BEDTIME PRN PRN Reason: SLEEP Last Admin: 11/14/17 21:46 Dose: 10 mg Discontinued Medications Bisacodyl (Dulcolax) 10 mg PO ONETIME ONE Stop: 11/12/17 16:01 Last Admin: 11/12/17 15:45 Dose: 10 mg Bisacodyl (Dulcolax) 10 mg PO ONETIME ONE Stop: 11/13/17 19:01 Last Admin: 11/13/17 20:45 Dose: 10 mg Diphenoxylate HCl/Atropine (Lomotil 0.025-2.5 Mg) 1 tab PO Q6H PRN PRN Reason: Diarrhea Last Admin: 11/10/17 06:16 Dose: 1 tab Diphenoxylate HCl/Atropine (Lomotil 0.025-2.5 Mg) Confirm Administered Dose 1 tab .ROUTE .STK-MED ONE Stop: 11/09/17 19:47 Last Admin: 11/09/17 19:54 Dose: Not Given Diphenoxylate HCl/Atropine (Lomotil 0.025-2.5 Mg) 1 tab PO Q6H PRN PRN Reason: Diarrhea Last Admin: 11/11/17 16:15 Dose: 1 tab Diphenoxylate HCl/Atropine (Lomotil 0.025-2.5 Mg) 1 tab PO Q4H PRN PRN Reason: Diarrhea Stop: 11/12/17 12:00 Potassium Chloride 20 meq/ (Premix) 100 mls @ 50 mls/hr IV ONETIME ONE Stop: 11/09/17 19:43 Last Admin: 11/09/17 17:59 Dose: 50 mls/hr Potassium Chloride 20 meq/ (Premix) 100 mls @ 50 mls/hr IV ONETIME ONE Stop: 11/09/17 21:59 Last Admin: 11/09/17 20:02 Dose: 50 mls/hr Sodium Chloride (Normal Saline) 500 mls @ 50 mls/hr IV ASDIRECTED [facility] Last Admin: 11/09/17 17:59 Dose: 50 mls/hr Potassium Chloride 20 meq/ (Premix) 100 mls @ 50 mls/hr IV ONETIME ONE Stop: 11/09/17 23:59 Last Admin: 11/09/17 22:37 Dose: 50 mls/hr Magnesium Sulfate 2 gm/ Premix 50 mls @ 150 mls/hr IV ONETIME ONE Stop: 11/09/17 18:19 Last Admin: 11/10/17 01:59 Dose: Not Given Dextrose/Water (Dextrose 5% In Water) 1,000 mls @ 62 mls/hr IV ASDIRECTED [facility] Last Admin: 11/11/17 02:35 Dose: 62 mls/hr Potassium Chloride (Kcl 20 Meq In Water 100 Ml) 100 mls @ 50 mls/hr IV ONETIME ONE Stop: 11/11/17 11:59 Last Admin: 11/11/17 09:55 Dose: 50 mls/hr Potassium Chloride (Kcl 20 Meq In Water 100 Ml) 100 mls @ 50 mls/hr IV ONETIME ONE Stop: 11/11/17 13:59 Last Admin: 11/11/17 12:05 Dose: 50 mls/hr Dextrose/Water (Dextrose 5% In Water) 1,000 mls @ 25 mls/hr IV ASDIRECTED [facility] Stop: 11/11/17 14:00 Magnesium Sulfate 4 gm/ Premix 100 mls @ 25 mls/hr IV ASDIRECTED [facility] Stop: 11/11/17 06:59 Last Admin: 11/11/17 23:42 Dose: Not Given Potassium Chloride 20 meq/ (Premix) 100 mls @ 50 mls/hr IV Q2H [facility] Stop: 11/12/17 01:44 Last Admin: 11/12/17 04:17 Dose: 50 mls/hr Magnesium Sulfate 4 gm/ Premix 100 mls @ 25 mls/hr IV ASDIRECTED [facility] Stop: 11/12/17 06:59 Last Admin: 11/12/17 11:37 Dose: Not Given Magnesium Sulfate 4 gm/ Premix 0 mls @ 200 mls/hr IV ONETIME ONE Stop: 11/12/17 11:01 Last Admin: 11/12/17 11:39 Dose: 25 mls/hr Potassium Chloride (Kcl 20 Meq In Water 100 Ml) 100 mls @ 50 mls/hr IV ONETIME ONE Stop: 11/14/17 10:30 Last Admin: 11/14/17 08:49 Dose: 50 mls/hr Potassium Chloride (Kcl 20 Meq In Water 100 Ml) 100 mls @ 50 mls/hr IV ONETIME ONE Stop: 11/14/17 12:39 Last Admin: 11/14/17 11:57 Dose: 50 mls/hr Potassium Chloride (Kcl 20 Meq In Water 100 Ml) 100 mls @ 50 mls/hr IV ONETIME ONE Stop: 11/14/17 14:39 Last Admin: 11/14/17 14:58 Dose: 50 mls/hr Midazolam HCl (Versed 1 Mg/Ml) Confirm Administered Dose 2 mg .ROUTE .STK-MED ONE Stop: 11/14/17 11:12 Last Admin: 11/14/17 19:14 Dose: Not Given Nicotine (Habitrol) Confirm Administered Dose 21 mg .ROUTE .STK-MED ONE Stop: 11/09/17 19:45 Last Admin: 11/09/17 19:53 Dose: Not Given Pantoprazole Sodium (Protonix Iv) 40 mg IVPUSH DAILY [facility] Last Admin: 11/11/17 08:22 Dose: 40 mg Polyethylene Glycol (Miralax) 238 gm PO ONETIME VANESSA Stop: 11/13/17 18:01 Last Admin: 11/13/17 15:54 Dose: 238 gm Propofol (Diprivan 20 Ml) Confirm Administered Dose 200 mg .ROUTE .STK-MED ONE Stop: 11/14/17 11:12 Last Admin: 11/14/17 19:14 Dose: Not Given Simethicone (Simethicone) Confirm Administered Dose 160 mg .ROUTE .STK-MED ONE Stop: 11/09/17 19:46 Last Admin: 11/09/17 19:54 Dose: Not Given
== END 2017-11-15 10:40 | disposition home or self-care (01) | DRG 378 ==
LOC: KA.MS 10:04 → OBSVTOIN 11-11 10:04
PROVIDERS: ADMIT Nurse Practitioner Family; ATTEND Family Medicine
PROC: 0DJD8ZZ Inspection of Lower Intestinal Tract, Via Natural or Artificial Opening Endoscopic (ICD-10-PCS; principal; 2017-11-14)
DX: K62.5 Hemorrhage of anus and rectum (principal); K92.2 Gastrointestinal hemorrhage, unspecified; D62 Acute posthemorrhagic anemia; E87.1 Hypo-osmolality and hyponatremia; R19.7 Diarrhea, unspecified; M81.0 Age-related osteoporosis without current pathological fracture; E86.0 Dehydration; K52.9 Noninfective gastroenteritis and colitis, unspecified; E87.6 Hypokalemia; E83.42 Hypomagnesemia; E03.9 Hypothyroidism, unspecified; K57.90 Diverticulosis of intestine, part unspecified, without perforation or abscess without bleeding; D47.3 Essential (hemorrhagic) thrombocythemia; F10.21 Alcohol dependence, in remission; F17.210 Nicotine dependence, cigarettes, uncomplicated; G47.00 Insomnia, unspecified; K82.8 Other specified diseases of gallbladder; K64.4 Residual hemorrhoidal skin tags; Z79.899 Other long term (current) drug therapy; Z79.82 Long term (current) use of aspirin
CPT/HCPCS: 00811; 36415; 80048; 80053; 82272; 83735; 84132; 85018; 85025; 87045; 87046; 87324; 89055; 96361; 96365; 96367; 96376; A9270-GY; C9113; G0378; J2250; J2704; J3475; J3480; J7040; J7060; J7120

== ENCOUNTER 2020-11-03 07:01 | Day surgery (SDC) | payer MEDICARE, BC ==
[~2020-11-03 07:01] MED LIST: Lactated Ringers 1,000 ML IV SCH; Sodium Chloride 0.9% 10 ML Syringe FLUSH PRN
[2020-11-03] MEDS ORDERED: Propofol 200 MG/20 ML SDV ONE (08:07)
[2020-11-03] MEDS ORDERED: Midazolam 1 MG/ML 2 ML SDV ONE (08:07)
[2020-11-03] MEDS ORDERED: Lactated Ringers 1,000 ML ONE (08:51)
--- NOTE | 2020-11-03 09:16 | PCM.PRNOTE ---
- Free Text/Narrative Note: PROCEDURE PERFORMED: Colonoscopy with biopsy PRE-PROCEDURE DIAGNOSIS/INDICATION FOR PROCEDURE: +diagnostic FIT, +calprotectin, history of chronic diarrhea (recently improved), last colonoscopy 11/14/17 with diverticuli but no polyps CONSENT: Informed consent was obtained prior to the procedure after discussion of the risks (including pain, bleeding, infection, perforation, missed polyps, inability to completely remove polyps or complete procedure necessitating repeat colonoscopy, adverse reaction to anesthesia, cardiovascular event), benefits and alternatives and expected outcomes. The patient expressed understanding and wished to proceed. Verbal consent given and consent form signed. PROCEDURAL PAUSE: Completed SEDATION: Per anesthesia DESCRIPTION OF PROCEDURE: Patient was placed in the left lateral decubitus position. After adequate sedation and anesthetic was administered, a rectal exam was performed revealing external hemorrhoid tags and palpable internal hemorrhoids. A lubricated Olympus Video Colonoscope was inserted into the rectum and air insufflation was performed. The colonoscope was advanced through the rectum, sigmoid, descending, transverse, and ascending colon without difficulties. The cecum was reached and the ileocecal valve as well as the appendiceal orifice were ident ified and pictorially documented. Ileocecal valve was intubated revealing normal mucosa. After adequate visualization of the cecum, the scope was withdrawn, giving 360-degree views of the colonic mucosa and retroflexion was performed in the rectum with the following findings noted: Ileocecal valve: Normal. Cecum: Normal. Ascending colon: Normal. Hepatic flexure: Normal. Transverse colon: Normal. Splenic flexure: Normal. Descending colon: Scattered small mouth diverticuli. Sigmoid colon: Scattered small mouth diverticuli. Rectum: Internal hemorrhoids without bleeding. Random biopsies with cold forceps were taken of the right colon, left colon, and recto-sigmoid colon and sent for pathologic evaluation to assess for microscopic colitis. The scope was straightened, air suction performed, and the scope withdrawn without complication. Preparation adequacy Minerva Bowel Score 9/9. IMPRESSION: Colonoscopy performed revealing - Descending and sigmoid colon diverticulosis - Internal and external hemorrhoids - Random biopsies obtained of the right colon, left colon, and recto-sigmoid colon sent for pathologic evaluation to assess for microscopic colitis. PLAN: Follow-up in clinic in 1 week to review pathology results and make further plan of care.
[2020-11-03 09:49] VITALS: PULSE 74
[2020-11-03 09:50] VITALS: BP 132/66
== END 2020-11-03 11:10 | disposition home or self-care (01) ==
LOC: KA.SDS 07:01
PROVIDERS: ATTEND Family Medicine
DX: K52.832 Lymphocytic colitis (principal); K64.4 Residual hemorrhoidal skin tags; K64.8 Other hemorrhoids; K57.30 Diverticulosis of large intestine without perforation or abscess without bleeding; N32.81 Overactive bladder; D75.1 Secondary polycythemia; F33.9 Major depressive disorder, recurrent, unspecified; I10 Essential (primary) hypertension; F17.200 Nicotine dependence, unspecified, uncomplicated
CPT/HCPCS: 00812; 88305; J2250; J2704; J7120

== ENCOUNTER 2021-03-17 00:51 | Emergency (ER) | payer MEDICARE, BC ==
[2021-03-17 01:32] LABS: ANION GAP 15.5 mmol/L (5-15); CHLORIDE,CL 102 mmol/L (98-107); SODIUM,NA 141 mmol/L (136-145)
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
[2021-03-17] MEDS ORDERED: Potassium Chloride 20 MEQ Tab.ER PO ONE (02:19)
[2021-03-17 05:10] VITALS: BP 111/54; PULSE 89
--- NOTE | 2021-03-17 11:21 | CR ---
[id number] RAD/RAD Hip Right 2-3V EXAM: RAD Pelvis 1-2V, RAD Hip Right 2-3V INDICATION: POSSIBLE RIGHT HIP FRACTURE DUE TO FALL COMPARISON: None. DISCUSSION: Acute displaced and angulated intertrochanteric fracture of the right hip. 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 Lower lumbar spondylosis. Chronic left superior and inferior pubic rami fractures. IMPRESSION: 1. Acute displaced and angulated intertrochanteric right hip fracture. Herminio Jovel MD 03/17/21 [id number] Thank you for allowing us to participate in the care of your patient.
--- NOTE | 2021-03-17 11:21 | CR ---
[id number] RAD/RAD Pelvis 1-2V EXAM: RAD Pelvis 1-2V, RAD Hip Right 2-3V INDICATION: POSSIBLE RIGHT HIP FRACTURE DUE TO FALL COMPARISON: None. DISCUSSION: Acute displaced and angulated intertrochanteric fracture of the right hip. 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 Lower lumbar spondylosis. Chronic left superior and inferior pubic rami fractures. IMPRESSION: 1. Acute displaced and angulated intertrochanteric right hip fracture. Herminio Jovel MD 03/17/21 1648 Thank you for allowing us to participate in the care of your patient.
== END 2021-03-17 02:44 ==
LOC: KA.ED 00:51
DX: S72.001A Fracture of unspecified part of neck of right femur, initial encounter for closed fracture (principal); E78.00 Pure hypercholesterolemia, unspecified; Z79.82 Long term (current) use of aspirin; Z79.899 Other long term (current) drug therapy; W18.39XA Other fall on same level, initial encounter; Y92.009 Unspecified place in unspecified non-institutional (private) residence as the place of occurrence of the external cause
CPT/HCPCS: 36415; 72170; 80053; 80307; 84484; 85025; 93005; 93010; 99284; 99285-25; A9270-GY

== ENCOUNTER 2021-03-20 10:34 | Inpatient (IN) | payer MEDICARE, BC ==
[2021-03-21] MEDS ORDERED: Loperamide 2 MG Cap PO PRN (12:29)
[2021-03-21] MEDS ORDERED: Ondansetron 4 MG Tab.DIS PO PRN (12:29)
[2021-03-21] MEDS ORDERED: SIMETHICONE 125 MG PO PRN (12:29)
[2021-03-21] MEDS ORDERED: Albuterol 0.083% 2.5 MG/3 ML Neb Soln NEB PRN (12:29)
[2021-03-21] MEDS ORDERED: Acetaminophen 325 MG Tab PO PRN (12:29)
[2021-03-21] MEDS ORDERED: Non-Formulary Medication 1 Each (Naloxone Hcl [Narcan] 4 MG Spray) NS PRN (12:29)
[2021-03-21] MEDS: oxyCODONE 5 MG Tab PO PRN ×2 (12:57→23:10)
[2021-03-21] MEDS ORDERED: Simethicone 80 MG Tab.Chew PO PRN (13:32)
[2021-03-21] MEDS: Methocarbamol 500 MG Tab PO SCH ×3 (14:25→21:37)
[2021-03-21] MEDS: Gabapentin 100 MG Cap PO SCH ×2 (14:25→21:38)
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
[2021-03-21] MEDS: Rivaroxaban 10 MG Tab PO SCH (17:31)
[2021-03-21] MEDS: Ferrous Sulfate 325 MG Tab PO SCH (21:38)
[2021-03-21] MEDS: Mirtazapine 15 MG Tab PO SCH (21:38)
[2021-03-21] MEDS: Zolpidem 5 MG Tab PO SCH (21:38)
[2021-03-21] MEDS: Pramipexole 0.5 MG Tab PO SCH (21:38)
[2021-03-22] MEDS: Levothyroxine 75 MCG Tab PO SCH ×2 (06:04→06:29)
[2021-03-22] MEDS: Methocarbamol 500 MG Tab PO SCH ×5 (08:47→20:03)
[2021-03-22] MEDS: Calcium Citrate/Vitamin D3 315 MG-250 Unit Tab PO SCH (08:47)
[2021-03-22] MEDS: Multivitamins with Minerals/Iron/Folic Acid/Lycopene Tab PO SCH (08:47)
[2021-03-22] MEDS: Oxybutynin 5 MG Tab.ER PO SCH (08:47)
[2021-03-22] MEDS: Aspirin 81 MG Tab.EC PO SCH (08:48)
[2021-03-22] MEDS: Gabapentin 100 MG Cap PO SCH (08:48)
[2021-03-22] MEDS: atorvaSTATin 10 MG Tab PO SCH (08:48)
[2021-03-22] MEDS: Nicotine 21 MG/24 Hr Patch TRDERM SCH (08:48)
[2021-03-22] MEDS: Ferrous Sulfate 325 MG Tab PO SCH ×3 (08:48→20:03)
[2021-03-22] MEDS: Cyanocobalamin (Vitamin B12) 500 MCG Tab PO SCH (08:48)
[2021-03-22] MEDS ORDERED: Non-Formulary Medication 1 Each (Cyanocobalamin (Vitamin B-12) [Vitamin B-12] 100 MCG Tabl PO SCH (09:00)
[2021-03-22] MEDS: Rivaroxaban 10 MG Tab PO SCH (17:27)
[2021-03-22] MEDS: oxyCODONE 5 MG Tab PO PRN (19:51)
[2021-03-22] MEDS: Mirtazapine 15 MG Tab PO SCH ×2 (19:52→20:03)
[2021-03-22] MEDS: Pramipexole 0.5 MG Tab PO SCH ×2 (19:52→20:03)
[2021-03-22] MEDS: Zolpidem 5 MG Tab PO SCH (21:50)
[2021-03-23] MEDS: oxyCODONE 5 MG Tab PO PRN ×2 (05:57→14:11)
[2021-03-23] MEDS: Levothyroxine 75 MCG Tab PO SCH (07:48)
[2021-03-23] MEDS: Calcium Citrate/Vitamin D3 315 MG-250 Unit Tab PO SCH (08:10)
[2021-03-23] MEDS: Multivitamins with Minerals/Iron/Folic Acid/Lycopene Tab PO SCH (08:10)
[2021-03-23] MEDS: Nicotine 21 MG/24 Hr Patch TRDERM SCH (08:11)
[2021-03-23] MEDS: Methocarbamol 500 MG Tab PO SCH ×4 (08:11→21:34)
[2021-03-23] MEDS: Cyanocobalamin (Vitamin B12) 500 MCG Tab PO SCH (08:11)
[2021-03-23] MEDS: atorvaSTATin 10 MG Tab PO SCH (08:11)
[2021-03-23] MEDS: Ferrous Sulfate 325 MG Tab PO SCH ×2 (08:11→21:35)
[2021-03-23] MEDS: Aspirin 81 MG Tab.EC PO SCH (08:11)
[2021-03-23] MEDS: Oxybutynin 5 MG Tab.ER PO SCH (08:17)
[2021-03-23] MEDS: Acetaminophen 325 MG Tab PO SCH ×3 (12:05→21:33)
--- OUTSIDE RECORDS SUMMARY | 2021-03-23 15:14 | XMSREPORT ---
:1945 Author Organization [facility] s Address [address] [place] [address] [address] [place] [address] Care Team Providers Name Role Phone Virginia Roth MD Primary Care Provider Virginia Roth MD Unavailable Reason for Visit Auth/Cert Specialty Diagnoses / Procedures Referred By Contact Refer red To Contact Referral ID Status Reason Start Date Expiration Date Visits Requ ested Visits Authorized [id number] 1 1 Encounter Details Date Type Department Care Team Description 03/17/2021 - Hospital Encounter [place] Mariama Prasad MD [address] [place] [address] Closed fracture of 03/21/2021 [facility] Jitendra Colunga MD [address] [place] [address] right hip (HCC) [address] [place] [address] Allergies No known active allergiesdocumented as of this encounter (statuses as of 03/21/2021) Medications Medication Sig Dispensed Refills Start End Date Status Date Multiple Take 1 tablet by 0 Act karie Vitamins-Minerals mouth 1 time per (MULTIVITAMIN day THERAPEUTIC WITH MINERALS) tablet calcium Take 1 tablet by 0 Act karie carbonate-vitamin mouth 1 time per D (CALTRATE 600 + day D) 600 mg-400 unit tablet simethicone Take 1 tablet by 0 A ctive (MYLICON, GAS-X) mouth 4 times a 8 125 MG CHEW day as needed chewable tablet for flatulence Apoaequorin Take 2 capsules 0 Ac tive (PREVAGEN PO) by mouth 1 time per day loperamide Take by mouth 0 Activ e (IMODIUM A-D) 2 MG Every hour as tablet needed Take 2 tabs after the first loose stool then 1 tab after each loose stool,but no more than 8 tabs in 24 hrs. levothyroxine 75 Take 1 tablet 90 tablet 3 Active mcg (75 mcg) by 1 tabletIndications: mouth 1 time per Hypothyroidism day (acquired) atorvaSTATin Take 1 tablet 90 tablet 3 Act karie (LIPITOR) 10 mg (10 mg) by mouth 1 tabletIndications: 1 time per day Candidate for statin therapy due to risk of future cardiovascular event oxybutynin Take 1 tablet 90 tablet 3 Activ e (DITROPAN-XL) 10 (10 mg) by mouth 1 mg SR tablet (24 1 time per day hr)Indications: OAB (overactive bladder) mirtazapine Take 0.5 tablets 45 tablet 1 A ctive (REMERON) 15 mg (7.5 mg) by 1 tabletIndications: mouth every Recurrent major night at bedtime depressive disorder, in full remission (HCC) budesonide Take 2 capsules 42 capsule 0 Ac tive (ENTOCORT EC) 3 mg (6 mg) by mouth 1 delayed release 1 time per day capsuleIndications for 14 days, : Lymphocytic THEN 1 capsule colitis (3 mg) 1 time per day for 14 days. pramipexole Take 1 tablet 30 tablet 0 Acti ve (MIRAPEX) 0.5 mg (0.5 mg) by 1 tabletIndications: mouth every Restless leg night at bedtime syndrome Take 2-3 hours before bedtime. zolpidem (AMBIEN) Take 1 tablet 30 tablet 5 Active 10 mg (10 mg) by mouth 1 tabletIndications: every night at Insomnia, bedtime unspecified type acetaminophen Take 2 tablets 30 tablet 0 A ctive (TYLENOL) 325 mg (650 mg) by 1 tabletIndications: mouth Every 4 Closed fracture of hours as needed right hip, initial for mild pain encounter (HCC) aspirin 81 mg Take 1 tablet 30 tablet 0 Ac tive enteric coated (81 mg) by mouth 2 tabletIndications: 1 time per day Tobacco dependence oxyCODONE (OXY IR) Take 1-2 25 capsule 0 Active 5 mg capsules (5-10 1 capsuleIndications mg) by mouth : Post-operative every 6 hours as state needed for severe pain for up to 30 doses albuterol Inhale 1 nebule 100 each 3 03/26/20 Acti ve (PROVENTIL) (2.5 (2.5 mg) by 1 22 mg/3mL) 0.083% nebulization inhalation Every 4 hours as solutionIndication needed for s: Tobacco shortness of dependence breath rivaroxaban Take 1 tablet 21 tablet 0 04/11/19 Acti ve (XARELTO) 10 mg (10 mg) by mouth 1 22 tabletIndications: 1 time a day at Prophylaxis of DVT supper for 21 in Orthopedic days Surgery Indications: Prophylaxis of Deep Vein Thrombosis in Orthopedic Surgery gabapentin Take 1 capsule 90 capsule 2 06/20/19 Act karie (NEURONTIN) 100 mg (100 mg) by 1 22 capsuleIndications mouth 3 times a : Restless leg day syndrome ondansetron Take 1 tablet (4 30 tablet 0 A ctive (ZOFRAN ODT) 4 mg mg) by mouth 4 1 dispersible times a day as tabletIndications: needed for Restless leg nausea or syndrome vomiting cyanocobalamin, Take 1 tablet 30 tablet 0 Active vitamin B-12, 100 (100 mcg) by 1 mcg mouth 1 time per tabletIndications: day Restless leg syndrome senna-docusate Take 2 tablets 30 tablet 0 Active sodium by mouth 2 times 1 (SENOKOT-S;PERICOL a day as needed SOHAIL) 8.6-50 MG for constipation tabletIndications: Closed fracture of right hip, initial encounter (HCC) methocarbamol Take 1 tablet 360 tablet 4 03/26/20 A ctive (ROBAXIN) 500 mg (500 mg) by 1 22 tabletIndications: mouth 4 times a Closed fracture of day right hip, initial encounter ([facility]) nalOXone (NARCAN) For symptoms of 0.2 mL 0 Active 4 MG/0.1ML nasal opioid overdose, 1 23 sprayIndications: spray 1 spray (4 Closed fracture of mg) into one right hip, initial nostril 1 time; encounter ([facility]) may repeat in opposite nostril in 2 minutes if person does not respond. ferrous sulfate Take 1 tablet 60 tablet 2 06/20/19 Active (65 MG FE PER 325 (325 mg) by 1 22 MG TABLET) 325 mg mouth 2 times a tabletIndications: day Anemia, unspecified type aspirin 81 mg Take 81 mg by 0 03/21/20 Di scontinued enteric coated mouth 1 time per 21 (Reorder) tablet day vitamin D3, Take 25 mcg by 0 03/17/20 Dis continued cholecalciferol, mouth 1 time per 21 (Therapy 25 mcg (1000 unit) day c ompleted) tablet Cyanocobalamin Take 1 tablet by 0 03/21/20 Discontinued (VITAMIN B-12 PO) mouth as needed 21 Acetaminophen-Aspi Take 2 tablets 0 Discontinued rin Buffered by mouth Every 4 21 (Stop Taking at (EXCEDRIN BACK & hours Dis charge) BODY PO) pramipexole Take 1 tablet 21 tablet 0 03/17/20 Disc ontinued (MIRAPEX) 0.125 mg (0.125 mg) by 1 21 (Therapy tabletIndications: mouth every completed) Restless leg night at bedtime syndrome for 7 days, THEN 2 tablets (0.25 mg) every night at bedtime for 7 days. Take 2-3 hours before bedtime.. oxyCODONE (OXY IR) Take 1-2 30 capsule 0 03/21/20 Discontinued 5 mg capsules (5-10 1 21 (Reor shiraz) capsuleIndications mg) by mouth : Post-operative every 6 hours as state needed for severe pain for up to 30 doses documented as of this encounter (statuses as of 03/21/2021) Active Problems Problem Noted Date Acute blood loss anemia 03/21/2021 Closed fracture of right hip 03/17/2021 Last Assessment & Plan: Mechanical fall. Will keep NPO and plan for surgery as so on as possible. Pain control with robaxin, oxycodone PRN or fentanyl PRN. May need SNF. Dr Rebolledo vocational case manager for ortho and will con tact at [phone]. May benefit from Dexa scan to r/o osteop oresis. Restless leg syndrome 02/26/2021 Last Assessment & Plan: Had started this and believes caused neil veronica to restart. Will order this PRN. Dyslipidemia 01/07/2021 Last Assessment & Plan: Continue statin. Lymphocytic colitis 11/11/2020 Overview: Diagnosed on 11/03/20 colonoscopy. Last Assessment & Plan: Restart budesonide as this worked well w hen she was taking it. No meds for one month and diarrhea has r estarted. Polycythemia secondary to smoking 10/02/2020 Chronic diarrhea 10/02/2020 Candidate for statin therapy due to risk of future car diovascular event 10/02/2020 Hypothyroidism (acquired) 10/02/2020 Last Assessment & Plan: Continue levothyroxine. Recurrent major depressive disorder, in full remission 10/02/2020 Insomnia 10/02/2020 Last Assessment & Plan: Decrease ambien as too much for a woman her age. Continue remeron and ambien. Tobacco dependence 10/02/2020 Last Assessment & Plan: Encourage to stop smoking. Nicoderm patch while here and could add nicotine gum/lozengers PRN. OAB (overactive bladder) 10/02/2020 Last Assessment & Plan: Hold oxybutynin while has fan placed. Calculus of gallbladder without cholecystitis without obstruction documented as of this encounter (statuses as of 03/21/2021) Resolved Problems Problem Noted Date Resolved Date Pure hypercholesterolemia 09/14/2010 10/02/2020 Other malaise and fatigue 09/14/2010 10/02/2020 documented as of this encounter (statuses as of 03/21/2021) Immunizations Name Administration Dates Next Due FLU VACCINE HIGH DOSE 65YR+(Fluzone) 01/01/2020, 01/04/2017 FLU VACCINE SINGLE DOSE 01/24/2019 0.5mL(6MO+Fluzone/Flulaval/Fluarix,3YR +Afluria) H1N1 Vaccine 02/20/2009 INFLUENZA HIGH DOSE (FLUZONE) 65 YEARS 01/07/2021, 8 AND UP Influenza Vaccine,unspecified 12/22/2015, 02/10/2015, 2013, 01/22/2013, 01/20/2012, 01/30/2010, 02/21/2008 Moderna COVID-19 Vaccine 18 years and 06/06/2020, 05/08/2020 up Pfizer COVID-19 Vaccine 12 years and 02/10/2021 up Pneumococcal Conj PCV13 12/22/2015 Pneumococcal Polysaccharide PPSV23 12/30/2008 documented as of this encounter Social History Tobacco Use Types Packs/Day Years Used Date Current Every Day Smoker Cigarettes 1 60 Smokeless Tobacco: Never Used Alcohol Use Standard Drinks/Week Comments Not Currently 20 (1 standard drink = 0.6 oz pure no al cohol since beg of October 2017 alcohol) Alcohol Habits Answer Date Recorded How often do you have a drink 2-4 times a month 03/17/2021 containing alcohol? How many drinks containing alcohol do 3 or 4 you have on a typical day when you are drinking? How often do you have six or more Never 2020 drinks on one occasion? Comment: no alcohol since beg of October 20172017 Physical Activity Answer Date Recorded On average, how many days per week do you engage in moderate to 0 days 01/01/2020 strenuous exercise (like walking fast, running, jogging, dancing, swimming, biking, or other activities that cause a light or heavy sweat)? On average, how many minutes do you engage in exercise at th is 0 min 01/01/2020 level? Food Insecurity Answer Date Recorded Within the past 12 months, you worried that your food would Never true 11/11/2020 run out before you got money to buy more. Within the past 12 months, the food you bought just didn't N ever true 11/11/2020 last and you didn't have money to get more. Sexually Active Control Partners Comments Not Currently Sex Assigned at Date Recorded Not on file documented as of this encounter Last Filed Vital Signs Vital Sign Reading Time Taken Comments Blood Pressure 126/58 03/21/2021 8:25 AM OUTBOARD MOTORBOAT RIGGER Pulse 83 03/21/2021 8:25 AM OUTBOARD MOTORBO[employer] RIGGER Temperature 37.2 C (99 F) 03/21/2021 8:25 AM OUTBOARD MOTORBOAT RIGGER Respiratory Rate 18 03/21/2021 8:25 AM OUTBOARD MOTORBOAT RIGGER Oxygen Saturation 98% 03/21/2021 8:25 AM OUTBOARD MOTORBOAT RIGGER Inhaled Oxygen Concentration - - Weight 65.4 kg (144 lb 1.6 oz) 03/21/2021 1:27 AM OUTBOARD MOTORBOAT RIGGER Height 162.6 cm (5' 4") 03/17/2021 4:00 AM OUTBOARD MOTORBOAT RIGGER Body Mass Index 24.73 03/17/2021 4:00 AM OUTBOARD MOTORBOAT RIGGER documented in this encounter Functional Status Functional Status Response Date of Assessment Is the person deaf or does he/she have serious difficulty No 12/08/2017 hearing? Is this person blind or does he/she have difficulty No 12/08/2017 seeing even when wearing glasses? Do you have difficulty with walking, balance, climbing No 01/07/2021 stairs, or had a fall in the last 3 months? documented as of this encounter Discharge Summaries Jitendra Colunga MD - 03/21/2021 9:50 AM OUTBOARD MOTORBOAT RIGGER (Incomplete)This note is in progress. Images from the original note were not included. Hospital Discharge Summary Attending Physician: Clara Monet MD Attending Physician Specialty: Adult Hospitalist Admit Date: 03/17/2021 Discharge Date: 03/21/21 Primary Care Physician: Magnolia Roth MD Discharge Diagnoses Principal Problem: Closed fracture of right hip (HCC) Active Problems: Hypothyroidism (acquired) Insomnia Tobacco dependence OAB (overactive bladder) Lymphocytic colitis Dyslipidemia Restless leg syndrome Acute blood loss anemia Resolved Problems: * No resolved hospital problems. * Hospital Course No notes on file Dictation #3 [id number] Advance Care Planning dnr LabTests Pending at Discharge Follow-Up Scheduled Contact information for follow-up [address] [address] Next Steps: Follow up Instructions: The provider will follow while in Swingbed Preliminary Discharge Medications This list of medications is preliminary and tentative. Please see the After Visit Summary for the final and accurate medication list. Discharge Medication List START taking these medications START: acetaminophen 325 mg tablet Commonly known as: TYLENOL Dose: 650 mg Take 2 tablets (650 mg) by mouth Every 4 hours as needed for mild pain START: albuterol (2.5 mg/3mL) 0.083% inhalation solution Commonly known as: PROVENTIL Dose: 2.5 mg Inhale 1 nebule (2.5 mg) by nebulization Every 4 hours as needed for shortness of breath START: ferrous sulfate 325 mg tablet Commonly known as: 65 mg FE per 325 mg tablet Dose: 325 mg Take 1 tablet (325 mg) by mouth 2 times a day START: gabapentin 100 mg capsule Commonly known as: NEURONTIN Dose: 100 mg Take 1 capsule (100 mg) by mouth 3 times a day START: methocarbamol 500 mg tablet Commonly known as: ROBAXIN Dose: 500 mg Take 1 tablet (500 mg) by mouth 4 times a day START: nalOXone 4 MG/0.1ML nasal spray Commonly known as: NARCAN For symptoms of opioid overdose, spray 1 spray (4 mg) into one nostril 1 time; may repeat in opposite nostril in 2 minutes if person does not respond. START: ondansetron 4 mg dispersible tablet Commonly known as: ZOFRAN ODT Dose: 4 mg Take 1 tablet (4 mg) by mouth 4 times a day as needed for nausea or vomiting START: oxyCODONE 5 mg capsule Commonly known as: OXY IR Dose: 5-10 mg Take 1-2 capsules (5-10 mg) by mouth every 6 hours as needed for severe pain for up to 30 doses START: rivaroxaban 10 mg tablet Commonly known as: XARELTO Dose: 10 mg Take 1 tablet (10 mg) by mouth 1 time a day at supper for 21 days Indications: Prophylaxis of Deep Vein Thrombosis in Orthopedic Surgery START: senna-docusate sodium 8.6-50 MG tablet Commonly known as: SENOKOT-S;PERICOLACE Dose: 2 tablet Take 2 tablets by mouth 2 times a day as needed for constipation CONTINUE taking these medications which have CHANGED CONTINUE: aspirin 81 mg enteric coated tablet Dose: 81 mg Take 1 tablet (81 mg) by mouth 1 time per day Start taking on: April 08, 2021 What changed: These instructions start on April 08, 2021. If you are unsure what to do until then, ask your doctor or other care provider. CONTINUE: cyanocobalamin (vitamin B-12) 100 mcg tablet Dose: 100 mcg Take 1 tablet (100 mcg) by mouth 1 time per day What changed: medication strength how much to take when to take this reasons to take this CONTINUE taking these medications which have NOT CHANGED CONTINUE: atorvaSTATin 10 mg tablet Commonly known as: LIPITOR Dose: 10 mg Take 1 tablet (10 mg) by mouth 1 time per day CONTINUE: budesonide 3 mg delayed release capsule Commonly known as: ENTOCORT EC Take 2 capsules (6 mg) by mouth 1 time per day for 14 days, THEN 1 capsule (3 mg) 1 time per day for14 days. Start taking on: January 07, 2021 CONTINUE: calcium carbonate-vitamin D 600 mg-400 unit tablet Commonly known as: CALTRATE 600 + D Dose: 1 tablet Take 1 tablet by mouth 1 time per day CONTINUE: Imodium A-D 2 MG tablet Generic drug: loperamide Take by mouth Every hour as needed Take 2 tabs after the first loose stool then 1 tab after each loose stool,but no more than 8 tabs in 24 hrs. CONTINUE: levothyroxine 75 mcg tablet Dose: 75 mcg Take 1 tablet (75 mcg) by mouth 1 time per day CONTINUE: mirtazapine 15 mg tablet Commonly known as: REMERON Dose: 7.5 mg Take 0.5 tablets (7.5 mg) by mouth every night at bedtime CONTINUE: multivitamin therapeutic with minerals tablet Dose: 1 tablet Take 1 tablet by mouth 1 time per day CONTINUE: oxybutynin 10 mg SR tablet (24 hr) Commonly known as: DITROPAN-XL Dose: 10 mg Take 1 tablet (10 mg) by mouth 1 time per day CONTINUE: pramipexole 0.5 mg tablet Commonly known as: MIRAPEX Dose: 0.5 mg Take 1 tablet (0.5 mg) by mouth every night at bedtime Take 2-3 hours before bedtime. CONTINUE: PREVAGEN PO Dose: 2 capsule Take 2 capsules by mouth 1 time per day CONTINUE: simethicone 125 MG Chew chewable tablet Commonly known as: MYLICON, GAS-X Dose: 1 tablet Take 1 tablet by mouth 4 times a day as needed for flatulence CONTINUE: zolpidem 10 mg tablet Commonly known as: AMBIEN Dose: 10 mg Take 1 tablet (10 mg) by mouth every night at bedtime You might also be taking other medications not listed above. If you have questions about any of your other medications, talk to the person who prescribed them or your Primary Care Provider. STOP taking these medications STOP: EXCEDRIN BACK & BODY PO Where to Get Your Medications These [facility] were [facility] [address] [place], [place] [address]e.[facility] [address] acetaminophen 325 mg tablet albuterol (2.5 mg/3mL) 0.083% inhalation solution aspirin 81 mg enteric coated tablet cyanocobalamin (vitamin B-12) 100 mcg tablet ferrous sulfate 325 mg tablet methocarbamol 500 mg tablet nalOXone 4 MG/0.1ML nasal spray ondansetron 4 mg dispersible tablet rivaroxaban 10 mg tablet senna-docusate sodium 8.6-50 MG tablet Information about where to get these medications is not yet available Ask your nurse or doctor about these medications gabapentin 100 mg capsule oxyCODONE 5 mg capsule Temp: 99 F (37.2 C) BP: 126/58 Weight: 65.4 kg (144 lb 1.6 oz) SpO2: 98 % Resp: 18 Pulse: 83 Current BMI (>50 = increased risk): 23.14 O2 Device: NC - no humidity O2 Flow Rate (L/min): 1 l/min Discharge Physical Exam General Appearance: oriented to person, place, and time Mental Status: alert, oriented to person, place, and time Eyes: pupils equal and reactive, extraocular eye movements intact Ears: bilateral TM's and external ear canals normal Nose: normal and patent, no erythema, discharge or polyps Mouth: mucous membranes moist, pharynx normal without lesions Neck: supple, no significant adenopathy Lymphatics: no palpable lymphadenopathy, no hepatosplenomegaly Breasts: not examined Chest: no tachypnea, retractions or cyanosis, decreased air entry noted at bases Heart: normal rate and regular rhythm Abdomen: soft, nontender, nondistended, no masses or organomegaly Back Exam: limited range of motion Neurological: alert, oriented, normal speech, no focal findings or movement disorder noted Extremities: peripheral pulses normal, no pedal edema, no clubbing or cyanosis Skin: normal coloration and turgor, no rashes, no suspicious skin lesions noted Procedures Performed and Findings Procedure(s): CLOSED REDUCTION AND INTERNAL FIXATION RIGHT HIP - Wound Class: Clean Consultations Obtained NICOTINE / TOBACCO CESSATION REFERRAL CONSULT PHYSICIAN Discharge Disposition Instructions for after discharge ADVANCE DIET TOLERATED MONITOR BLOOD PRESSURE NO ONGOING BEACON ORDERS IN PLACE FOR PATIENT AT THIS TIME NOTIFY PRIMARY CARE PROVIDER IF SYMPTOMS WORSEN OR FAIL TO IMPROVE ANTICIPATED OTHER INSTRUCTIONS: Weigt bearing as tolerated with PT Medical Decision Making A total of 25 minutes were spent on discharge coordination. upriya Raya RN - 03/20/2021 1:11 PM CST Dock Grader Note Patient is ready for discharge today; however, related to weather, unable to arrange transportation. PC to [facility] - they are agreeable with discharge 03/21. They do not need another MD2MD call. RN2RN report to [phone] prior to discharge in the am. Fax orders to [phone] [facility] to [facility] [phone] regarding above. He voices relief she does not have to travel today. [facility] want to provide transportation tomorrow - he anticipates arrival to [facility] ~10am (unless instructed to come sooner). Please ensure the facility is aware of ETA on day of discharge. Patient's PCP is: Magnolia Roth MD Discharge Plan: Swing Bed, [facility] [employer]ARD MOTORBOAT RIGGER documented in this encounter Discharge Instructions Talon Patel - 03/21/2021 Images from the original note were not included. After a Hip Fracture: Common Questions No one plans on having a hip fracture. But a sudden fall or accident can be a life-changing event. Youll often need surgery to repair the fracture, and time for it to heal. Its normal to have concerns about what to expect at this time. Below are answers to some common questions. Can I be as active as I was before? After a hip fracture, you may not be able to move around as easily as you did before. But with some effort and a positive attitude, you can get back to doing many things you enjoy. When will the pain in my hip stop? Your hip will likely be sore for several weeks after surgery. But this pain can be managed with medicine. The pain should also lessen with time and proper exercise. Why do I need to begin doing exercises right after surgery? Exercise is needed for proper healing. Some exercises help prevent blood clots, while othersbuild strength to help you get out of bed and get moving. When can I go home? This often depends on your health and how well you can get around. You'll often leave the hospital within a week. But you may need to go to a rehabilitation center or detention facilityfor an additional week or twobefore returning home. How long before I can use the bathroom on my own? Your catheter is removed once you can move to the bathroom. This is often a day or two after surgery. A therapist will teach you how to get on and off the toilet safely. When will I walk again? With the help of a physical therapist, youll begin learning how to walk again before you leave the hospital. Your healthcare provider may restrict your amount of weight-bearing activities after surgery, depending on the location of the fracture and the surgery type. For several months after your surgery, you may need to continue physical therapy andwalking with a cane or walker. [employer] last reviewed this educational content on 11/02/202019992653-4586 [employer] All rights reserved. This information is not intended as a substitute for professional medical care. Always follow your healthcare professional's instructions. documented in this encounter Medications at Time of Discharge Medication Sig Dispensed Refills Start Date End Date acetaminophen (TYLENOL) Take 2 tablets (650 30 tablet 0 325 mg mg) by mouth Every 4 tabletIndications: hours as needed for Closed fracture of mild pain right hip, initial encounter ([facility]) aspirin 81 mg enteric Take 1 tablet (81 mg) 30 tablet 0 08/2021 coated by mouth 1 time per tabletIndications: day Tobacco dependence oxyCODONE (OXY IR) 5 mg Take 1-2 capsules 25 capsule 0 03/21 capsuleIndications: (5-10 mg) by mouth Post-operative state every 6 hours as needed for severe pain for up to 30 doses albuterol (PROVENTIL) Inhale 1 nebule (2.5 100 each 3 03/0403/26/2022 (2.5 mg/3mL) 0.083% mg) by nebulization inhalation Every 4 hours as solutionIndications: needed for shortness Tobacco dependence of breath rivaroxaban (XARELTO) Take 1 tablet (10 mg) 21 tablet 0 04/11/2021 10 mg by mouth 1 time a day tabletIndications: at supper for 21 days Prophylaxis of DVT in Indications: Orthopedic Surgery Prophylaxis of Deep Vein Thrombosis in Orthopedic Surgery gabapentin (NEURONTIN) Take 1 capsule (100 90 capsule 2 03/0406/19/2021 100 mg mg) by mouth 3 times capsuleIndications: a day Restless leg syndrome ondansetron (ZOFRAN Take 1 tablet (4 mg) 30 tablet 0 2020 ODT) 4 mg dispersible by mouth 4 times a tabletIndications: day as needed for Restless leg syndrome nausea or vomiting senna-docusate sodium Take 2 tablets by 30 tablet 0 021 (SENOKOT-S;PERICOLACE) mouth 2 times a day 8.6-50 MG as needed for tabletIndications: constipation Closed fracture of right hip, initial encounter ([facility]) methocarbamol (ROBAXIN) Take 1 tablet (500 360 tablet 4 03/0403/26/2022 500 mg mg) by mouth 4 times tabletIndications: a day Closed fracture of right hip, initial encounter (HCC) zolpidem (AMBIEN) 10 mg Take 1 tablet (10 mg) 30 tablet 5 1 05/17/2020 tabletIndications: by mouth every night Insomnia, unspecified at bedtime type pramipexole (MIRAPEX) Take 1 tablet (0.5 30 tablet 0 2020 0.5 mg mg) by mouth every tabletIndications: night at bedtime Take Restless leg syndrome 2-3 hours before bedtime. atorvaSTATin (LIPITOR) Take 1 tablet (10 mg) 90 tablet 3 10 mg by mouth 1 time per tabletIndications: day Candidate for statin therapy due to risk of future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 moderate conscious sedation. The patient was monitored utilizing continuous pulse oximetry, continuous telemetry and intermittent blood pressure measurements throughout the procedure without notable aberration in vitals. Please see the patient's procedure log for fur ther information. Physician start time 12:57 Physician stop time 14:23 Drains: none Findings: Consistent with Diagnosis Complications: none Postoperative Condition: stable OARD MOTORBOAT RIGGER documented in this encounter ED Notes Shemar Ferguson MD - 03/17/2021 6:28 AM CST [facility] ED Provider Transfer Form Patient Name -Nadja GALVAN -1945 Diagnosis / Reason for Transfer -right hip fracture status post ground-level fall HPI - 75-year-old female who tripped and fell while turning on a carpeted floor. She fell onto her right hip and sustained a right hip fracture. She had no other complaints or no other injuries. Exam A/V/P/U - Temp- afebrile HR- 86 B/P- 118/80 RR- POX- 98% Labs -labs all within normal limits other than a low potassium of 2.9 Radiology -x-rays reveal a right hip intertrochanteric fracture Treatment -patient given pain control and received 6 mg of morphine in route to our facility Recommendations -patient directly admitted to hospitalist service on arrival here in the breaker operator and orthopedics will be consulted in the morning by hospitalist service Designated Physician/Service -spoke with Dr. Clara Monet who accepted the patient to the floor and will consult orthopedics in the morning Transfer Arrival Evaluation Change in condition stable If yes, describe Hemodynamics stable Respiratory stable Neuro stable Disposition Inpatient Unit documented in this encounter Miscellaneous Notes Clinical Team - Estrellita Walker RN - 03/21/2021 9:54 AM CST Nurse to nurse called to Marjan DAVENPORT with [facility] swingbed linical Team - Ami Salamanca RN - 03/19/2021 1:[address] Colunga, patient is ok to not have IV access documented in this encounter Plan of Treatment Date Type Specialty Care Team Description 03/25/2021 Office Visit Orthopedics Alysha Nunez A PRN-WASTEWATER PROJECT MANAGER [address] [place], [place] [address] (Wo rk) 04/02/2021 Office Visit Orthopedics Barbra Francois MD [address] [place], [place] [address] (Wo rk) 04/30/2021 Office Visit Orthopedics Barbra Francois MD [address] [place], [place] [address] (Wo rk) 06/15/2021 Office Visit Orthopedics Alysha Nunez A PRN-WASTEWATER PROJECT MANAGER [address] [place], [place] [address] (Wo rk) Name Type Priority Associated Diagnoses Order S chedule URINALYSIS DIPSTICK Lab Routine Once for 1 Occurrences REFLEX TO MICROSCOPIC starti ng 03/20/2021 until 03/20/2021 documented as of this encounter Implants Implanted Type Area Terrazzo Tile Setter Device Shelf Model / Identifier Expiration Serial / Date Lot Nail Tfna Ti Rt 130d [id number] N 04.037.142s Ea1 - Sna Ortho Righ t: J&J DEPUY 02/01/2031 04.037.142S / Implanted: Qty: 1 on 03/18/2021 by Barbra Hammer MD at [facility] Other FEMUR SYNTHES NA / [id number] Screw Fen Tfna Ti Ster 90mm N 04.038.190s Ea1 - Sn/A Ortho Right : J&J DEPUY 12/03/2027 04.038.190S / Implanted: Qty: 1 on 03/18/2021 by Barbra Hammer MD at [facility] Other HIP SYNTHES N/A / [id number] Screw Lk Ti Nail 5x34mm N 04.005.524 Ea1 - [id number] Ortho Right: J&J DEPUY 52 / Implanted: Qty: 1 on 03/18/2021 by Barbra Hammer MD at [facility] Other HIP SYNTHES / documented as of this encounter Procedures Procedure Name Priority Date/Time Associated Comments Diagnosis LAB ONLY-COMPLETE Routine 03/21/2021 6:27 Result s for this BLOOD COUNT WITH AM OUTBOARD MOTORBOAT RIGGER procedure a re in DIFFERENTIAL the results section. PROCALCITONIN Routine 03/21/2021 6:27 Results fo r this AM OUTBOARD MOTORBOAT RIGGER procedure are i n the results section. BASIC METABOLIC PANEL Routine 03/21/2021 6:27 Re sults for this AM OUTBOARD MOTORBOAT RIGGER procedure are i n the results section. LAB ONLY-COMPLETE Routine 03/21/2021 6:27 Result s for this BLOOD COUNT WITH AM OUTBOARD MOTORBOAT RIGGER procedure a re in DIFFERENTIAL the results section. HEMOGLOBIN Routine 03/20/2021 4:23 Results for this PM OUTBOARD MOTORBOAT RIGGER procedure are i n the results section. TRANSFUSE RED BLOOD Routine 03/20/2021 11:04 CELLS IN UNITS AM OUTBOARD MOTORBOAT RIGGER SARS-COV-2, INFLUENZA STAT 03/20/2021 10:35 Re sults for this A+B, AND/OR RSV AM OUTBOARD MOTORBOAT RIGGER procedure ar e in NUCLEIC ACID TESTING the res ults PANEL section. PREPARE AND HOLD RED Routine 03/20/2021 10:10 Res ults for this BLOOD CELLS IN UNITS - AM OUTBOARD MOTORBOAT RIGGER proce dure are in BLOOD BANK the results section. LAB ONLY - CROSSMATCH Routine 03/20/2021 10:10 Re sults for this AM OUTBOARD MOTORBOAT RIGGER procedure are i n the results section. TYPE AND SCREEN Routine 03/20/2021 6:17 Results for this AM OUTBOARD MOTORBOAT RIGGER procedure are i n the results section. HEMOGLOBIN Routine 03/20/2021 6:17 Results for this AM OUTBOARD MOTORBOAT RIGGER procedure are i n the results section. BASIC METABOLIC PANEL Routine 03/20/2021 6:17 Re sults for this AM OUTBOARD MOTORBOAT RIGGER procedure are i n the results section. HEMOGLOBIN STAT 03/19/2021 5:37 Results for this AM OUTBOARD MOTORBOAT RIGGER procedure are i n the results section. BASIC METABOLIC PANEL STAT 03/19/2021 5:37 Re sults for this AM OUTBOARD MOTORBOAT RIGGER procedure are i n the results section. LAB ONLY-ABORH Routine 03/19/2021 5:36 Results f or this AM OUTBOARD MOTORBOAT RIGGER procedure are i n the results section. XRAY HIP MIN 2 VIEWS Routine 03/18/2021 3:01 Res ults for this RT PM OUTBOARD MOTORBOAT RIGGER procedure are i n the results section. XRAY C-ARM IN OR Routine 03/18/2021 2:12 Results for this PM OUTBOARD MOTORBOAT RIGGER procedure are i n the results section. NAILING HIP 03/18/2021 11:40 Hip fracture (HCC) AM OUTBOARD MOTORBOAT RIGGER Special Needs INPATIENT 331 LAB ONLY-MANUAL Routine 03/18/2021 5:55 AM OUTBOARD MOTORBOAT RIGGER R esults for this DIFFERENTIAL procedure are i n the results section . LAB ONLY-COMPLETE BLOOD Routine 03/18/2021 5:55 AM OUTBOARD MOTORBOAT RIGGER Results for this COUNT WITH DIFFERENTIAL proc edure are in the results section . BASIC METABOLIC PANEL Routine 03/18/2021 5:55 AM OUTBOARD MOTORBOAT RIGGER Results for this procedure are i n the results section . LAB ONLY-COMPLETE BLOOD Routine 03/18/2021 5:55 AM OUTBOARD MOTORBOAT RIGGER Results for this COUNT WITH DIFFERENTIAL proc edure are in the results section . XRAY FEMUR 2 VIEWS RT ROLA 03/17/2021 5:46 PM OUTBOARD MOTORBOAT RIGGER Results for this procedure are i n the results section . LAB ONLY-MANUAL Routine 03/17/2021 6:14 AM OUTBOARD MOTORBOAT RIGGER R esults for this DIFFERENTIAL procedure are i n the results section . LAB ONLY-COMPLETE BLOOD Routine 03/17/2021 6:14 AM OUTBOARD MOTORBOAT RIGGER Results for this COUNT WITH DIFFERENTIAL proc edure are in the results section . PROTIME/INR Routine 03/17/2021 6:14 AM OUTBOARD MOTORBOAT RIGGER Resu lts for this procedure are i n the results section . BASIC METABOLIC PANEL Routine 03/17/2021 6:14 AM OUTBOARD MOTORBOAT RIGGER Results for this procedure are i n the results section . LAB ONLY-COMPLETE BLOOD Routine 03/17/2021 6:14 AM OUTBOARD MOTORBOAT RIGGER Results for this COUNT WITH DIFFERENTIAL proc edure are in the results section . documented in this encounter Results (ABNORMAL) LAB ONLY-COMPLETE BLOOD COUNT WITH DIFFERENTIAL (03/21/2021 6:27 AM OUTBOARD MOTORBOAT RIGGER) [facility] Sig nature WBC 7.5 4.0 - 11.0 K/uL [facility] RBC 2.74 (L) 3.80 - 5.30 M/uL [facility] Hemoglobin 8.4 (L) 11.5 - 15.8 g/dL [facility] Hematocrit 25.7 (L) 35.0 - 45.0 % [facility] MCV 93.9 80.0 - 98.0 fL [facility] MCH 30.7 25.5 - 34.0 pg [facility] MCHC 32.7 31.5 - 36.5 g/dL [facility] RDW-CV 13.5 11.5 - 15.5 % [facility] Platelet Count 263 140 - 400 K/uL [facility] MPV 6.4 5.1 - 9.9 fL [facility] Seg Neut Absolute 4.3 1.8 - 8.0 K/uL [facility] Lymphocytes Absolute 2.3 0.8 - 4.1 K/uL [facility] Monocytes Absolute 0.8 0.0 - 1.0 K/uL [facility] Eosinophils Absolute 0.0 0.0 - 0.7 K/uL [facility] Basophil Absolute 0.1 0.0 - 0.2 K/uL [facility] Neutrophils Abs. (Segs 4,300 /uL [facility] and Bands) Neutrophils Percent 56.9 % [facility] Lymphocytes Percent 30.4 % [facility] Monocytes Percent 10.9 % [facility] Eosinophils Percent 0.6 % [facility] Basophil Percent 1.2 % [facility] Specimen Blood - Blood specimen (specimen) Performing Organization Address City/State/ZIP Code Phon e Number [facility] [address] [place] [address] PROCALCITONIN (03/21/2021 6:27 AM OUTBOARD MOTORBOAT RIGGER) Pathologist Sig nature Procalcitonin 0.05 <0.07 ng/mL [facility] Specimen Blood - Blood specimen (specimen) Narrative [facility] - 03/21/2021 7:24 AM CS T Suspected Lower Respiratory Tract Infection: 0.1-0.25: Low risk for bacterial infecti on; Antibiotics discouraged. > 0.25: Increased likelihood for bacteri al infection; Antibiotics encouraged. Suspected Sepsis: 0.1-0.5: Low likelihood for sepsis; Anti biotics discouraged. > 0.5: Increased Likelihood for sepsis; Antibiotics encouraged. > 2.0: High risk of sepsis/septic shock; Antibiotics strongly encouraged. Decisions on antibiotic use should not b e based solely on procalcitonin levels. If antibiotics are administered, repeat procalcitonin testing should be performed every 2-3 days to consider early antibio tic cessation. PCT is a dynamic biomarke r and most useful when trends are analyzed over time in accompaniment with other clinical data. Performing Organization Address City/State/ZIP Code Phon e Number [facility] [address] [place] [address] (ABNORMAL) BASIC METABOLIC PANEL (03/21/2021 6:27 AM OUTBOARD MOTORBOAT RIGGER) Pathologist Sig nature Glucose 96 70 - 99 mg/dL [facility] BUN 5 (L) 6 - 22 mg/dL [facility] Creatinine 0.53 (L) 0.60 - 1.10 mg/dL [facility] BUN/Creatinine Ratio 9.4 (L) 10.0 - 25.0 [facility] Sodium 140 136 - 145 meq/L [facility] Potassium 3.7 3.5 - 5.1 meq/L [facility] Chloride 103 98 - 109 meq/L [facility] CO2 30 (H) 20 - 29 meq/L [facility] Anion Gap with K 11 6 - 20 meq/L [facility] Calcium 7.8 (L) 8.5 - 10.5 mg/dL [facility] Age 75 Years [facility] eGFR Non- >90 >=60 mL/min/1.73m2 [facility] Albanian eGFR >90 >=60 mL/min/1.73m2 [facility] RY Fasting Yes Yes, No, Unknown [facility] Specimen Blood - Blood specimen (specimen) Performing Organization Address City/[facility]/ZIP Code Phon e Number [facility] [address] [place] [address] (ABNORMAL) HEMOGLOBIN (03/20/2021 4:23 PM OUTBOARD MOTORBOAT RIGGER) Pathologist [facility] [place] nature Hemoglobin 9.7 (L) 11.5 - 15.8 g/dL [facility] Specimen Blood - Blood specimen (specimen) Performing Organization Address City/State/ZIP Code Phon e Number [facility] [address] [place] [address] SARS-COV-2, INFLUENZA A+B, AND/OR RSV NUCLEIC ACID TESTING PANEL (03/20/2021 10:35 AM OUTBOARD MOTORBOAT RIGGER) Pathologist Sig nature SARS-CoV-2 Not Detected Not Detected [facility] Specimen Respiratory - Nasopharyngeal swab (speci men) Narrative [facility] - 03/20/2021 11:18 AM CS T Please read entire report. Results for Influenza A and B or RSV may also be available depending on which viruses your provider selected for testing. Your Covid-19 test is negative: 1)Avoiding close contact is s till recommended. 2)Cover your coughs and snee zes. 3)Wash your hands often with soap and water for at least 20 seconds or use an alcohol-based warehouse freight handler containing over 60% alcohol. Avoid touching your face. 4)Avoid sharing personal guillermina sehold items, including dishes, cups, utensils, towels, clothing, or bedding. These items should be cleaned thoroughly with soap and water after use. Clean all "high touch" surfaces in your home daily. 5) Monitor your symptoms. Contact your provider if you are feeling worse. If you have shortness of breath or difficulty breathing, call 911. This assay is for in vitro diagnostic us e under FDA Emergency Use Authorization only. Optimal performance of this test require s appropriate specimen collection, storage, and transport to the test site. Detection of SARS-CoV-2 RNA may be affec norberto by sample collection methods, patient factors (eg, presence of symptoms), and/or stage of infection. False-negative results may arise from de gradation of viral RNA during shipping/storage. Results should be interpreted by a train ed professional in conjunction with the patient s history and clinical signs and symptoms, and epidemiological risk factors. Negative (Not Detected) results do not p reclude infection with the SARS-CoV-2 virus and should not be the sole basis of patient treatment/management or public health decision. Follow up testing should b e performed according to the current CDC recommendations. This test was performed by polymerase ch ain reaction (PCR) on the GeneXpert instrument. Performing Organization Address City/State/ZIP Code Phon e Number [facility] [address] [place], [place] [address] LAB ONLY - CROSSMATCH (03/20/2021 10:10 AM OUTBOARD MOTORBOAT RIGGER) Packed RBC Compatible Compatible, [facility] Uncrossmatched Bloodbank [id number] [facility] Identification Number Unit Type O Pos [facility] Unit Number [id number] [facility] Unit Code [id number] [facility] Unit Expiration Date 04/02/2021 [facility] Volume [facility] Unit Product PACKED RED CELL [facility] Special Needs [facility] Specimen Blood - Blood specimen (specimen) Performing Organization Address City/[facility]/ZIP Code Phon e Number [facility] [address] [place], [place] [id number] PREPARE AND HOLD RED BLOOD CELLS IN UNITS - BLOOD BANK, 1 Units (03/20/2021 10:10 AM OUTBOARD MOTORBOAT RIGGER) Pathologist Sig nature Additional Units 1Comment: PRBC [facility] unit/s available to infuse. Specimen Blood - Blood specimen (specimen) Performing Organization Address [facility]/ZIP Code Phon e Number [facility] [address] [place], [place] [phone] TYPE AND SCREEN (03/20/2021 6:17 AM OUTBOARD MOTORBOAT RIGGER) Pathologist Sig nature ABO Type O [facility] Rh Type Rh Positive [facility] Antibody Screen Negative Negative [facility] Expiration Date 03/23/2021 @2359 [facility] Specimen Blood - Blood specimen (specimen) Performing Organization Address [facility]/ZIP Code Phon e Number [facility] [address] [place] [address] (ABNORMAL) BASIC METABOLIC PANEL (03/20/2021 6:17 AM OUTBOARD MOTORBOAT RIGGER) Pathologist Sig nature Glucose 95 70 - 99 mg/dL [facility] BUN 6 6 - 22 mg/dL [facility] Creatinine 0.60 0.60 - 1.10 mg/dL [facility] BUN/Creatinine Ratio 10.0 10.0 - 25.0 [facility] Sodium 138 136 - 145 meq/L [facility] Potassium 3.5 3.5 - 5.1 meq/L [facility] Chloride 103 98 - 109 meq/L [facility] CO2 31 (H) 20 - 29 meq/L [facility] Anion Gap with K 8 6 - 20 meq/L [facility] Calcium 8.1 (L) 8.5 - 10.5 mg/dL [facility] Age 75 Years [facility] eGFR Non- >90 >=60 [facility] Albanian mL/min/1.73m2 eGFR >90 >=60 [facility] mL/min/1.73m2 Specimen Blood - Blood specimen (specimen) Performing Organization Address [facility] Phon e Number [facility] [address] [place] [address] (ABNORMAL) HEMOGLOBIN (03/20/2021 6:17 AM OUTBOARD MOTORBOAT RIGGER) Pathologist Sig nature Hemoglobin 7.6 (L) 11.5 - 15.8 g/dL [facility] Specimen Blood - Blood specimen (specimen) Performing Organization Address [facility] Phon e Number [facility] [address] [place] [address] (ABNORMAL) BASIC METABOLIC PANEL (03/19/2021 5:37 AM OUTBOARD MOTORBOAT RIGGER) Pathologist Sig nature Glucose 115 (H) 70 - 99 mg/dL [facility] BUN 6 6 - 22 mg/dL [facility] Creatinine 0.54 (L) 0.60 - 1.10 [facility] mg/dL BUN/Creatinine Ratio 11.1 10.0 - 25.0 [facility] Sodium 139 136 - 145 meq/L [facility] Potassium 4.0 3.5 - 5.1 meq/L [facility] Chloride 107 98 - 109 meq/L [facility] CO2 24 20 - 29 meq/L [facility] Anion Gap with K 12 6 - 20 meq/L [facility] Calcium 7.5 (L) 8.5 - 10.5 mg/dL [facility] Age 75 Years [facility] eGFR Non- >90 >=60 [facility] Albanian mL/min/1.73m2 eGFR >90 >=60 [facility] mL/min/1.73m2 Specimen Blood - Blood specimen (specimen) Performing Organization Address [facility] Phon e Number [facility] [address] [place] [address] (ABNORMAL) HEMOGLOBIN (03/19/2021 5:37 AM OUTBOARD MOTORBOAT RIGGER) Pathologist Sig nature Hemoglobin 8.0 (L) 11.5 - 15.8 g/dL [facility] Specimen Blood - Blood specimen (specimen) Performing Organization Address [facility]/ZIP [facility] [place] Phon e Number [facility] [address] [place] [address] LAB ONLY-ABORH (03/19/2021 5:36 AM OUTBOARD MOTORBOAT RIGGER) Pathologist Sig nature ABO Type O [facility] Rh Type Rh Positive [facility] Specimen Blood - Blood specimen (specimen) Performing Organization Address City/State/ZIP Code Phon e Number [facility] [address] [place] [address] XRAY HIP MIN 2 VIEWS RT (03/18/2021 3:01 PM OUTBOARD MOTORBOAT RIGGER) Anatomical Region Laterality Modality Hip, Pelvis Computed Radiography Specimen Narrative [facility] - 03/19/2021 5:33 PM OUTBOARD MOTORBOAT RIGGER Patient Name: NADJA ARCINIEGA Date of : 1945 Procedure: XRAY HIP MIN 2 VIEWS RT Date of Service: 03/18/2021 EXAM: X-RAY HIP MIN 2 VIEWS RT INDICATION: Post op COMPARISON(S): Radiograph right hip 03/04. FINDINGS: Negative for postoperative pur poses. New short intramedullary nail fixation across the right intertrochanteric fracture. Hardware is in good position. Mild right hip arthritis. Edited by: nelli 03/18/2021 3:35 PM OUTBOARD MOTORBOAT RIGGER Finalized by: Susi Valdez MD on 5:33 PM OUTBOARD MOTORBOAT RIGGER Patient/Procedure Information: [facility] MRN/TANYA: [id number] Order Number: [id number] Accession Number: [id number] Ordering Provider: ALYSHA NUNEZ Authorizing Provider: ALYSHA NUNEZ Procedure Note Susi Valdez MD - 03/19/2021 Patient Name: NADJA ARCINIEGA Date of : 1945 Procedure: XRAY HIP MIN 2 VIEWS RT Date of Service: 03/18/2021 EXAM: X-RAY HIP MIN 2 VIEWS RT INDICATION: Post op COMPARISON(S): Radiograph right hip 03/04. FINDINGS: Negative for postoperative pur poses. New short intramedullary nail fixation across the right intertrochanteric fracture. Hardware is in good position. Mild right hip arthritis. Edited by: nelli 03/18/2021 3:35 PM OUTBOARD MOTORBOAT RIGGER Finalized by: Susi Valdez MD on 5:33 PM OUTBOARD MOTORBOAT RIGGER Patient/Procedure Information: [facility] MRN/TANYA: [id number] Order Number: [id number] Accession Number: [id number] Ordering Provider: ALYSHA NUNEZ Authorizing Provider: ALYSHA NUNEZ Performing Organization Address [facility] Phon e Number [id number] XRAY C-ARM IN OR (03/18/2021 2:12 PM OUTBOARD MOTORBOAT RIGGER) Anatomical Region Laterality Modality Radio Fluoroscopy Specimen Narrative [facility] - 03/18/2021 2:19 PM OUTBOARD MOTORBOAT RIGGER Patient Name: NADJA ARCINIEGA Date of : 1945 Procedure: XRAY C-ARM IN OR Date of Service: 03/18/2021 EXAM: XRAY C-ARM IN OR INDICATION: Right Hip Nailing FINDINGS: Intraoperative fluoroscopic images taken during intramedullary nail fixation across the right intertrochanteric fracture. Finalized by: Susi Valdez MD on 2:19 PM OUTBOARD MOTORBOAT RIGGER Patient/Procedure Information: [facility] MRN/TANYA: [id number] Order Number: [id number] Accession Number: [id number] Ordering Provider: BARBRA FRANCOIS Authorizing Provider: BARBRA FRANCOIS Procedure Note Susi Valdez MD - 03/18/2021 Patient Name: NADJA ARCINIEGA Date of : 1945 Procedure: XRAY C-ARM IN OR Date of Service: 03/18/2021 EXAM: XRAY C-ARM IN OR INDICATION: Right Hip Nailing FINDINGS: Intraoperative fluoroscopic images taken during intramedullary nail fixation across the right intertrochanteric fracture. Finalized by: Susi Valdez MD on 2:19 PM OUTBOARD MOTORBOAT RIGGER Patient/Procedure Information: [facility] MRN/TANYA: [id number] Order Number: [id number] Accession Number: [id number] Ordering Provider: BARBRA FRANCOIS Authorizing Provider: BARBRA FRANCOIS Performing Organization Address [facility] Phon e Number [id number] LAB ONLY-MANUAL DIFFERENTIAL (03/18/2021 5:55 AM OUTBOARD MOTORBOAT RIGGER) Neutrophils Abs. 4,218 /uL [facility] (Segs and Bands) Seg Neut Absolute 4.2 1.8 - 8.0 [facility] K/uL Lymphocytes Absolute 2.4 0.8 - 4.1 [facility] K/uL Monocytes Absolute 0.8 0.0 - 1.0 [facility] K/uL Eosinophils Absolute 0.0 0.0 - 0.7 [facility] K/uL Basophil Absolute 0.0 0.0 - 0.2 [facility] K/uL Neutrophils Percent 57.0 % [facility] Lymphocytes Percent 32.0 % [facility] Monocytes Percent 11.0 % [facility] Eosinophils Percent 0.0 % [facility] Basophil Percent 0.0 % [facility] Platelet Estimate Normal [facility] Platelet Morphology Large Platelets [facility] Present RBC Morphology Abnormal [facility] Specimen Blood - Blood specimen (specimen) Narrative [facility] - 03/18/2021 6:27 AM CS T Slight macrocytosis Performing Organization Address [facility] Phon e Number [facility] [address] [place], [place] [id number] (ABNORMAL) LAB ONLY-COMPLETE BLOOD COUNT WITH DIFFERENTIAL (03/18/2021 5:55 AM OUTBOARD MOTORBOAT RIGGER) Pathologist Sig nature WBC 7.4 4.0 - 11.0 K/uL [facility] RBC 3.72 (L) 3.80 - 5.30 M/uL [facility] Hemoglobin 11.7 11.5 - 15.8 g/dL [facility] Hematocrit 37.1 35.0 - 45.0 % [facility] MCV 99.8 (H) 80.0 - 98.0 fL [facility] MCH 31.4 25.5 - 34.0 pg [facility] MCHC 31.5 31.5 - 36.5 g/dL [facility] RDW-CV 13.6 11.5 - 15.5 % [facility] Platelet Count 248 140 - 400 K/uL [facility] MPV 6.6 5.1 - 9.9 fL [facility] Specimen Blood - Blood specimen (specimen) Performing Organization Address City/[facility] Phon e Number [facility] [address] [place] [address] (ABNORMAL) BASIC METABOLIC PANEL (03/18/2021 5:55 AM OUTBOARD MOTORBOAT RIGGER) [facility] Sig nature Glucose 96 70 - 99 mg/dL [facility] BUN 6 6 - 22 mg/dL [facility] Creatinine 0.61 0.60 - 1.10 mg/dL [facility] BUN/Creatinine Ratio 9.8 (L) 10.0 - 25.0 [facility] Sodium 141 136 - 145 meq/L [facility] Potassium 3.5 3.5 - 5.1 meq/L [facility] Chloride 112 (H) 98 - 109 meq/L [facility] CO2 25 20 - 29 meq/L [facility] Anion Gap with K 8 6 - 20 meq/L [facility] Calcium 7.6 (L) 8.5 - 10.5 mg/dL [facility] Age 75 Years [facility] eGFR Non- >90 >=60 [facility] Albanian mL/min/1.73m2 eGFR >90 >=60 [facility] mL/min/1.73m2 Specimen Blood - Blood specimen (specimen) Performing Organization Address City/State/ZIP Code Phon e Number [facility] [address] [place], [place] [id number] XRAY FEMUR 2 VIEWS RT (03/17/2021 5:46 PM OUTBOARD MOTORBOAT RIGGER) Anatomical Region Laterality Modality Femur Computed Radiography Specimen Narrative LAB - 03/17/2021 6:29 PM OUTBOARD MOTORBOAT RIGGER FINAL REPORT Ordering Location: [facility] [place] Patient Name: Nadja Arciniega CSN: [id number] : 1945 Ordering Physician: MICHAEL AVITIA TANYA: [id number] Order: [id number] Procedure: XRAY FEMUR 2 VIEWS RT Procedure Date/Time: 03/17/2021 16:40 PROCEDURE INFORMATION: Exam: XR Right Femur Exam date and time: 03/17/2021 4:48 PM Age: 75 years old Clinical indication: Pain; Hip; Right; P atient HX: FX; Additional info: Preop TECHNIQUE: Imaging protocol: XR Right femur. Views: 2 views. COMPARISON: CR XRAY 1V PELVIS RAD OUTSIDE STUDY WITH OUT INTERP 03/17/2021 1:28 AM FINDINGS: Bones/joints: Slightly impacted right pe r trochanteric and intertrochanteric fracture. Distal femur is unremarkable. Soft tissues: Unremarkable. IMPRESSION: Slightly impacted right per trochanteric and intertrochanteric fracture. This report was electronically signed by [facility] [employer] physician: Inocente Roblero MD. on 03/17/2021 at 18:29, Central Standard Time. Procedure Note Inocente Roblero MD - 03/17/2021 FINAL REPORT Ordering Location: [facility] Patient Name: Nadja Arciniega CSN: [id number] : 1945 Ordering Physician: MICHAEL AVITIA TANYA: [id number] Order: [id number] Procedure: XRAY FEMUR 2 VIEWS RT Procedure Date/Time: 03/17/2021 16:40 PROCEDURE INFORMATION: Exam: XR Right Femur Exam date and time: 03/17/2021 4:48 PM Age: 75 years old Clinical indication: Pain; Hip; Right; P atient HX: FX; Additional info: Preop TECHNIQUE: Imaging protocol: XR Right femur. Views: 2 views. COMPARISON: CR XRAY 1V PELVIS RAD OUTSIDE STUDY WITH OUT INTERP 03/17/2021 1:28 AM FINDINGS: Bones/joints: Slightly impacted right pe r trochanteric and intertrochanteric fracture. Distal femur is unremarkable. Soft tissues: Unremarkable. IMPRESSION: Slightly impacted right per trochanteric and intertrochanteric fracture. This report was electronically signed by [facility] [employer] physician: Inocente Roblero MD. on 03/17/2021 at 18:29, Central Standard Time. Performing Organization Address City/State/ZIP Code Phon e Number LAB (ABNORMAL) LAB ONLY-MANUAL DIFFERENTIAL (03/17/2021 6:14 AM OUTBOARD MOTORBOAT RIGGER) Pathologist Sig nature Neutrophils Abs. (Segs 5,530 /uL [facility] and Bands) Seg Neut Absolute 4.7 1.8 - 8.0 K/uL [facility] Band Absolute 0.9 (H) 0.0 - 0.7 K/uL [facility] Lymphocytes Absolute 1.7 0.8 - 4.1 K/uL [facility] Monocytes Absolute 0.6 0.0 - 1.0 K/uL [facility] Basophil Absolute 0.1 0.0 - 0.2 K/uL [facility] Neutrophils Percent 59.0 % [facility] Band Percent 11.0 % [facility] Lymphocytes Percent 21.0 % [facility] Monocytes Percent 8.0 % [facility] Basophil Percent 1.0 % [facility] Platelet Estimate Normal [facility] Platelet Morphology Normal [facility] RBC Morphology Normal [facility] Reactive Lymphocytes Few/Slight [facility] Specimen Blood - Blood specimen (specimen) Performing Organization Address [facility] Phon e Number [facility] [address] [place] [address] LAB ONLY-COMPLETE BLOOD COUNT WITH DIFFERENTIAL (03/17/2021 6:14 AM OUTBOARD MOTORBOAT RIGGER) Pathologist Sig nature WBC 7.9 4.0 - 11.0 K/uL [facility] RBC 3.93 3.80 - 5.30 M/uL [facility] Hemoglobin 12.3 11.5 - 15.8 g/dL [facility] Hematocrit 38.2 35.0 - 45.0 % [facility] MCV 97.2 80.0 - 98.0 fL [facility] MCH 31.3 25.5 - 34.0 pg [facility] MCHC 32.2 31.5 - 36.5 g/dL [facility] RDW-CV 13.2 11.5 - 15.5 % [facility] Platelet Count 287 140 - 400 K/uL [facility] MPV 6.8 5.1 - 9.9 fL [facility] Specimen Blood - Blood specimen (specimen) Performing Organization Address [facility] Phon e Number [facility] [address] [place] [address] PROTIME/INR (03/17/2021 6:14 AM OUTBOARD MOTORBOAT RIGGER) Pathologist Sig nature Protime 13.8 12.0 - 14.5 secs [facility] INR 1.1 0.9 - 1.1 [facility] Specimen Blood - Blood specimen (specimen) Narrative [facility] - 03/17/2021 8:20 AM CS T Patient normal reference range has [facility] ed. INR Standard Intensity = (2.0 - 3.0) INR Higher Intensity = (2.5 - 3.5) Performing Organization Address City/State/ZIP Code Phon e Number [facility] [address] [place] [address] (ABNORMAL) BASIC METABOLIC PANEL (03/17/2021 6:14 AM OUTBOARD MOTORBOAT RIGGER) [facility] Glucose 113 (H) 70 - 99 mg/dL [facility] BUN 5 (L) 6 - 22 mg/dL [facility] Creatinine 0.64 0.60 - 1.10 mg/dL [facility] BUN/Creatinine Ratio 7.8 (L) 10.0 - 25.0 [facility] Sodium 141 136 - 145 meq/L [facility] Potassium 3.4 (L) 3.5 - 5.1 meq/L [facility] Chloride 109 98 - 109 meq/L [facility] CO2 24 20 - 29 meq/L [facility] Anion Gap with K 11 6 - 20 meq/L [facility] Calcium 7.9 (L) 8.5 - 10.5 mg/dL [facility] Age 75 Years [facility] eGFR Non- 90 >=60 mL/min/1.73m2 [facility] Albanian eGFR >90 >=60 mL/min/1.73m2 [facility] RY Fasting Unknown Yes, No, Unknown [facility] Specimen Blood - Blood specimen (specimen) Performing Organization Address City/State/ZIP Code Phon e Number [facility] [address] [place] [address] documented in this encounter Visit Diagnoses Diagnosis Post-operative state Other postprocedural status Closed fracture of right hip, initial en counter (HCC) Restless leg syndrome Restless legs syndrome (RLS) Tobacco dependence Tobacco use disorder Anemia, unspecified type Hypothyroidism (acquired) Unspecified hypothyroidism OAB (overactive bladder) Hypertonicity of bladder Insomnia Insomnia, unspecified Lymphocytic colitis Other and unspecified noninfectious gary roenteritis and colitis Dyslipidemia Other and unspecified hyperlipidemia Acute blood loss anemia Acute posthemorrhagic anemia documented in this encounter Discharge Diagnoses Not on filedocumented in this encounter Administered Medications Medication Order MAR Action Action Date Dose Rate Site acetaminophen (TYLENOL) tablet Given 03/18/2021 9:51 PM OUTBOARD MOTORBOAT RIGGER 650 mg 650 mg 650 mg, Oral, Every four hours prn, Starting on Tue03/17/21 at 0540, Until Discontinued, mild pain, Use FIRST for mild pain. If inadequate response in 60 minutes, may proceed to next choice option or if no other options, contact provider. Adult patients: Total dose of acetaminophen from all acetaminophen containing products should not exceed 4 grams (4000 mg) per day. Pediatric Patients 0 - 3 months: Maximum of 60 mg/kg/24 hours of acetaminophen. Pediatric Patients older than 3 months: Maximum of 75 mg/kg/24 hours of acetaminophen (Never exceeding 4 grams/day). albuterol (PROVENTIL) (2.5 mg/3mL) 0.083 % inhalation soln 2.5 mg 2.5 mg, Nebulization, Every four hours p rn, Starting on Simi 03/19/21 at 1517, Until Discontinued, shortness of breath, 3 mL, Standard Neb and PPE Guidelines atorvaSTATin (LIPITOR) tablet 10 mg Given 03/21/2021 8:08 AM OUTBOARD MOTORBOAT RIGGER 10 mg 10 mg, Oral, DAILY, First dose on Tue03/17/21 at 0900, Until Discontinued Given 03/20/2021 8:03 AM OUTBOARD MOTORBOAT RIGGER 10 mg Given 03/19/2021 10:52 AM OUTBOARD MOTORBOAT RIGGER 10 mg bisacodyl (DULCOLAX) suppository 10 mg 10 mg, Rectal, One time a day prn, Starting on Tue at 0540, Until Discontinued, constipation, Use SECOND f or constipation. If patient cannot take oral medications, use first for constipation. budesonide (ENTOCORT EC) delayed release Given 03/21/2021 8:08 AM OUTBOARD MOTORBOAT RIGGER 6 mg capsule 6 mg 6 mg, Oral, Daily, 14 doses, First dose on Tue03/17/21 at 0550, Last dose on Tue03/29/21 at 0900 Given 03/20/2021 8:04 AM OUTBOARD MOTORBOAT RIGGER 6 mg Given 03/19/2021 10:51 AM OUTBOARD MOTORBOAT RIGGER 6 mg calcium carbonate-vitamin D (OSCAL 500 + Given 03/21/2021 8 :08 AM OUTBOARD MOTORBOAT RIGGER 1 tablet VIT D) 500 mg-200 unit tablet 1 tablet 1 tablet, Oral, DAILY, First dose on Tue03/17/21 at 0900, Until Discontinued Given 03/20/2021 8:03 AM OUTBOARD MOTORBOAT RIGGER 1 tablet Given 03/19/2021 10:51 AM OUTBOARD MOTORBOAT RIGGER 1 tablet fentaNYL 100 mcg/2 mL preservative free Given 03/18/2021 4:46 A M OUTBOARD MOTORBOAT RIGGER 50 mcg injection solution 50-100 mcg 50-100 mcg, IV, Every one hour prn, Starting on Tue03/17/21 at 0542, Until Discontinued, severe pain, 2 mL Given 03/17/2021 10:06 PM OUTBOARD MOTORBOAT RIGGER 50 mcg gabapentin (NEURONTIN) capsule 100 mg Given 03/21/2021 8:08 AM OUTBOARD MOTORBOAT RIGGER 100 mg 100 mg, Oral, Three times a day, First dose on Tue03/17/21 at 0900, Until Discontinued, For pain control Given 03/20/2021 8:06 PM OUTBOARD MOTORBOAT RIGGER 100 mg Given 03/20/2021 5:22 PM OUTBOARD MOTORBOAT RIGGER 100 mg lactated ringers IV solution (bolus) MARILU N 500 mL 500 mL, IV, at 999 mL/hr, PRN per dayami ferrara, 1 dose, Starting on Tue03/18/21 at 1447, Until Discontinued, other (Specify ), if MAP less than 65, 500 mL, Post - Op, Call provider if administered levothyroxine tablet 75 mcg Given 03/21/2021 8:08 AM OUTBOARD MOTORBOAT RIGGER 75 mcg 75 mcg, Oral, DAILY, First dose on Tue03/17/21 at 0900, Until Discontinued Given 03/20/2021 8:02 AM OUTBOARD MOTORBOAT RIGGER 75 mcg Given 03/19/2021 10:51 AM OUTBOARD MOTORBOAT RIGGER 75 mcg methocarbamol (ROBAXIN) tablet 500 mg Given 03/21/2021 8:08 AM OUTBOARD MOTORBOAT RIGGER 500 mg 500 mg, Oral, Four times a day, First dose on Tue03/17/21 at 0550, Until Discontinued Given 03/20/2021 8:06 PM OUTBOARD MOTORBOAT RIGGER 500 mg Given 03/20/2021 5:22 PM OUTBOARD MOTORBOAT RIGGER 500 mg mirtazapine (REMERON) tablet 7.5 mg Given 03/20/2021 8:06 PM OUTBOARD MOTORBOAT RIGGER 7.5 mg 7.5 mg, Oral, Bedtime, First dose on Tue03/17/21 at 2100, Until Discontinued Given 03/19/2021 9:08 PM OUTBOARD MOTORBOAT RIGGER 7.5 mg Given 03/18/2021 9:44 PM OUTBOARD MOTORBOAT RIGGER 7.5 mg nalOXone (NARCAN) injection solution (vi al) 0.2 mg 0.2 mg, Injection, Every two minutes prn , Starting on Tue03/18/21 at 1518, Until Discontinued, other (Specify), opioid induced respirat ory depression - PARTIAL reversal, 1 mL, PARTIAL REVERSAL/RESPIRA TORY DEPRESSION If respiratory rate less than 8/minute - call rapid response and administer (un til respiratory rate increases to 10/minute). Give IV (preferred), IM or S UBQ nalOXone (NARCAN) injection solution (vi al) 0.4 mg 0.4 mg, Injection, Every two minutes prn , Starting on Tue03/18/21 at 1518, Until Discontinued, other (Specify), opioid in duced respiratory arrest - FULL reversal, 1 mL, FULL REVERSAL/RESPIRATORY ARREST If patient is not breathing - call CODE BLUE and administer. Give IV (preferred), IM or SUBQ nicotine (NICODERM) 21mg/24hr patch Applied 03/21/2021 9:25 AM OUTBOARD MOTORBOAT RIGGER 21 mg Left Arm 21 mg (1 patch), Transdermal, Daily, First dose on Tue03/17/21 at 0900, Until Discontinued, Administer over 24 Hours Applied 03/20/2021 8:05 AM OUTBOARD MOTORBOAT RIGGER 21 mg Arm Right Right Upper TD Applied 03/19/2021 11:11 AM OUTBOARD MOTORBOAT RIGGER 21 mg Left Shoulder ondansetron (ZOFRAN ODT) dispersible tab let 4 mg 4 mg, Oral, Four times a day prn, Starting on 03/04 at 0541, Until Discontinued, nausea, vomiting, Use FIRS T for nausea / vomiting. If ineffective after 30 minutes use ondansetron IV ondansetron (ZOFRAN) injection solution 4 mg Given 03/18/2021 12:26 PM OUTBOARD MOTORBOAT RIGGER 4 mg 4 mg, IV, Four times a day prn, Starting on Tue03/17/21 at 0541, Until Discontinued, nausea, vomiting, 2 mL, Use SECOND for nausea / vomiting. If ineffective after 30 minutes and ondansetron ODT used, call physician for alternative. If preference is to further dilute for IV administration: First draw up patient-specific dose, then dilute to 10 mL with 0.9% sodium chloride. ondansetron (ZOFRAN) injection solution 4 mg 4 mg, IV, One time prn, 1 dose, Starting on Tue at 1447, Until Discontinued, nausea, 2 mL, Post - Op, I f total dose in last 4 hours is less than 8 mg First choice if no ondansetron has be en given If preference is to further dilute for IV administration: First draw up pat ient-specific dose, then dilute to 10 mL with 0.9% sodium chloride. oxybutynin (DITROPAN-XL) SR tablet (24 hr) 10 Given 8:08 AM OUTBOARD MOTORBOAT RIGGER 10 mg mg 10 mg, Oral, DAILY, First dose on Tue03/18/21 at 0900, Until Discontinued, Tablet should not be crushed or chewed. Given 03/20/2021 8:02 AM OUTBOARD MOTORBOAT RIGGER 10 mg Given 03/19/2021 10:53 AM OUTBOARD MOTORBOAT RIGGER 10 mg oxyCODONE (OXY-IR) tablet 5 mg Given 03/21/2021 9:26 AM OUTBOARD MOTORBOAT RIGGER 5 mg 5 mg, Oral, Every six hours prn, Starting on Tue03/17/21 at 0546, Until Discontinued, severe pain Given 03/20/2021 6:00 AM OUTBOARD MOTORBOAT RIGGER 5 mg Given 03/19/2021 9:09 PM OUTBOARD MOTORBOAT RIGGER 5 mg pramipexole (MIRAPEX) tablet 0.5 mg Given 03/20/2021 8:07 PM OUTBOARD MOTORBOAT RIGGER 0.5 mg 0.5 mg, Oral, Bedtime, First dose on Tue03/17/21 at 2100, Until Discontinued Given 03/19/2021 9:08 PM OUTBOARD MOTORBOAT RIGGER 0.5 mg Given 03/18/2021 9:44 PM OUTBOARD MOTORBOAT RIGGER 0.5 mg rivaroxaban (XARELTO) tablet 10 mg Given 03/20/2021 5:22 PM OUTBOARD MOTORBOAT RIGGER 10 mg 10 mg, Oral, One time a day with evening meal, First dose on Tue03/19/21 at 1730, Until Discontinued, If medication given via a feeding tube, feeding tube MUST be gastric. If feeding tube is placed in the small intestine, notify provider or pharmacy. Given 03/19/2021 9:53 PM OUTBOARD MOTORBOAT RIGGER 10 mg senna-docusate sodium (SENOKOT-S;PERICOL SOHAIL) tablet 2 tablet 2 tablet, Oral, Two times a day prn, Starting on Tue05/18/20 at 0540, Until Discontinued, constipation, Use FIRST fo r constipation unless patient cannot take oral medications. sodium chloride 0.9% flush (adult) 10 mL Given 03/19/2021 9:09 PM OUTBOARD MOTORBOAT RIGGER 10 mL 10 mL, IV, Two times a day and prn, First dose on Tue03/17/21 at 0900, Until Discontinued, 10 mL, Flush PIV line as scheduled and as often as necessary before and after meds. Use a push / pause technique when flushing to create turbulence. sodium chloride 0.9% flush (adult) 10 mL Given 03/21/2021 8:08 AM OUTBOARD MOTORBOAT RIGGER 10 mL 10 mL, IV, Two times a day and prn, First dose on Tue03/18/21 at 2100, Until Discontinued, 10 mL, Continue through discharge, Flush PIV line as scheduled and as often as necessary before and after meds. Use a push / pause technique when flushing to create turbulence. Given 03/20/2021 8:07 PM OUTBOARD MOTORBOAT RIGGER 10 mL Given 03/20/2021 8:04 AM OUTBOARD MOTORBOAT RIGGER 10 mL zolpidem (AMBIEN) tablet 5 mg Given 03/20/2021 10:57 PM OUTBOARD MOTORBOAT RIGGER 5 mg 5 mg, Oral, Bedtime, First dose on Tue03/17/21 at 2100, Until Discontinued Given 03/19/2021 9:09 PM OUTBOARD MOTORBOAT RIGGER 5 mg Given 03/18/2021 9:51 PM OUTBOARD MOTORBOAT RIGGER 5 mg Medication Order MAR Action Action Date Dose Rate Site furosemide (LASIX) tablet 40 mg Given 03/19/2021 4:03 PM OUTBOARD MOTORBOAT RIGGER 40 mg 40 mg, Oral, Now, 1 dose, On Tue03/19/21 at 1515 lactated ringers IV solution (bolus) Given 03/18/2021 5:28 PM OUTBOARD MOTORBOAT RIGGER 500 mL 999 mL/hr SOLN 500 mL 500 mL, IV, at 999 mL/hr, Bolus, 1 dose, On Tue03/18/21 at 1810, 500 mL potassium chloride (KLOR-CON M20) CR tablet Given 03/04 4:04 PM OUTBOARD MOTORBOAT RIGGER 20 mEq 20 mEq 20 mEq, Oral, One time, 1 dose, On Tue03/19/21 at 1615, Tablet may be broken in half, but should not be crushed or chewed. Tablet may be dissolved in 4 oz of water. DO NOT give via feeding tube route as this can clog the tube. sodium chloride 0.9% IV solution flush b ag New Bag 03/20/2021 11:05 AM OUTBOARD MOTORBOAT RIGGER 250 mL IV, Continuous, Starting on Tue03/20/21 at 0955, Until 03/21/21 at 0954, 250 mL, IV line carrier for line flush with blood product infusion. sodium chloride 0.9% IV solution New Bag 03/19/2021 1:08 AM OUTBOARD MOTORBOAT RIGGER 75 mL/hr IV, at 75 mL/hr, Continuous, Starting on Tue03/17/21 at 0550, Until Tue03/19/21 at 1510, 1,000 mL New Bag 03/18/2021 4:46 AM OUTBOARD MOTORBOAT RIGGER 75 mL/hr New Bag 03/17/2021 6:01 AM OUTBOARD MOTORBOAT RIGGER 75 mL/hr documented in this encounter Active and Recently Administered Medications Times are shown in OUTBOARD MOTORBOAT RIGGER. Medication Order 03/19/2021 03/20/2021 03/21/2021 atorvaSTATin (LIPITOR) tablet 10 mg 1052 (Given - Prov ider: Ami Salamanca RN) 0803 (Given - Provider: Estrellita Walker RN) 0808 (Gi shea - Provider: Estrellita Walker RN) 10 mg, Oral, DAILY, First dose on Tue03/17/21 at 0900, Until Di scontinued budesonide (ENTOCORT EC) delayed release capsule 6 mg 1051 (Given - Provider: Ami Salamanca RN) 0804 (Given - Provider: Estrellita Walker RN) 0808 (Gi shea - Provider: Estrellita Walker RN) 6 mg, Oral, Daily, 14 doses, First dose on Tue03/17/21 at 0550, Last dose on Tue03/29/21 at 0900 calcium carbonate-vitamin D (OSCAL 500 + VIT D) 500 mg -200 unit tablet 1 tablet 1051 (Given - Provider: Ami Salamanca RN) 0803 (Given - Provider: Estrellita Walker RN) 0808 (Given - Provider: Estrellita Walker RN) 1 tablet, Oral, DAILY, First dose on Tue03/17/21 at 0900, Until Discontinued furosemide (LASIX) tablet 40 mg (COMPLETED) 1603 (Give n - Provider: Ami Salamanca RN) 40 mg, Oral, Now, 1 dose, On Tue03/19/21 at 1515 gabapentin (NEURONTIN) capsule 100 mg 1052 (Given - Pr ovider: Ami Salamanca RN)1514 (Given - Provider: Ami Salamanca RN)2107 (Given - Provider: Elizabet Lopez RN) 0802 (Given - Provider: Estrellita Walker RN)172 (Given - Provider: Estrellita Walker RN)2005 (Given - Provider: Pat Rhodes RN) 08 (Given - Provider: Estrellita Walker RN)1500 (Due)2100 (Due) 100 mg, Oral, Three times a day, First d ose on Tue03/17/21 at 0900, Until Discontinued, For pain control levothyroxine tablet 75 mcg 1051 (Given - Provider: Gigi Salamanca RN) 08 (Given - Provider: Estrellita Walker RN) 08 (Given - Provider: Estrellita Walker RN) 75 mcg, Oral, DAILY, First dose on Tue03/17/21 at 0900, Until D iscontinued methocarbamol (ROBAXIN) tablet 500 mg 1051 (Given - Pr ovider: Ami Salamanca RN)1249 (Given - Provider: Ami Salamanca RN)1854 (Not Given - Provider: Ami Salamanca RN - Reason: Not Given)2107 (Given - Provider: Elizabet Lopez RN) 0803 (Given - Provider: Estrellita Walker RN)1235 (Given - Provider: Estrellita Walekr RN)172 (Given - Provider: Estrellita Walker RN)2005 (Given - Provider: Pat Rhodes RN) 0808 (Given - Provider: Estrellita Walker RN)1300 (Due)1700 (Due)2100 (Due) 500 mg, Oral, Four times a day, First do se on Tue03/17/21 at 0550, Until Discontinued mirtazapine (REMERON) tablet 7.5 mg 2107 (Given - Provider: Elizabet Lopez RN) 2005 (Given - Provider: Pat Rhodes RN) 2100 (Due) 7.5 mg, Oral, Bedtime, First dose on Tue03/17/21 at 2100, Until Discontinued nicotine (NICODERM) 21mg/24hr patch 1111 (Applied - Pr ovider: Ami Salamanca RN) 0801 (Remove - Provider: Estrellita bro RN)0805 (Applied - Provider: Estrellita Walker RN) 0810 (Remove - Provider: Estrellita bro RN)0925 (Applied - Provider: Estrellita Walker RN) 21 mg (1 patch), Transdermal, Daily, Fir st dose on Tue03/17/21 at 0900, Until Discontinued, Administer over 24 Hours oxybutynin (DITROPAN-XL) SR tablet (24 hr) 10 mg 1053 (Given - Provider: Ami Salamanca RN) 0802 (Given - Provider: Estrellita Walker RN) 0808 (Gi shea - Provider: Estrellita Walker RN) 10 mg, Oral, DAILY, First dose on Tue at 0900, Until Discontinued, Tablet should not be crushed or chewed. potassium chloride (KLOR-CON M20) CR tablet 20 mEq (CO MPLETED) 1604 (Given - Provider: Ami Salamanca RN) 20 mEq, Oral, One time, 1 dose, On Tue05/20/20 at 1615, Tablet may be broken in half, but should not be crushed or chewed. Tablet may be dissolved in 4 oz of water. DO NOT give via feeding tube route as this can clog the tube. pramipexole (MIRAPEX) tablet 0.5 mg 2107 (Given - Provider: Elizabet Lopez RN) 2006 (Given - Provider: Pat Rhodes RN) 2099 (Due) 0.5 mg, Oral, Bedtime, First dose on Tue03/17/21 at 2100, Until Discontinued rivaroxaban (XARELTO) tablet 10 mg 2152 (Given - Provider: Dayday Lopez RN) 1721 (Given - Provider: Estrellita Walekr RN) 0 (Due) 10 mg, Oral, One time a day with evening meal, First dose on Tue03/19/21 at 1730, Until Discontinued, If medication given via a feeding tube, feeding tube MUST be gastric. If feeding tube is placed in the small intestine, notify provider or pharmacy. sodium chloride 0.9% flush (adult) 10 mL 1055 (Not Ind icated - Provider: Ami Salamanca RN)2108 (Given - Provider: Elizabet Lopez RN) 08 (Duplicate Entry - Provider: Estrellita Walker, ETHEL)2008 (Duplicate Entry - Provider: Pat Rhodes, ETHEL) 0836 (Not Indicated - Provider: Maged Walker RN)2100 (Due) 10 mL, IV, Two times a day and prn, Firs t dose on Tue03/17/21 at 0900, Until Discontinued, 10 mL, Flush PIV line as scheduled and as often as necessary before and after meds. Use a push / pause technique when flushing to create turbulence. sodium chloride 0.9% flush (adult) 10 mL 1054 (Given - Provider: Ami Salamanca RN)2107 (Given - Provider: Elizabet Lopez RN) 08 (Given - Provider: Estrellita Walker, ETHEL)2006 (Given - Provider: Pat Rhodes, ETHEL) 0808 (Given - Provider: Estrellita Walker, ETHEL)2100 (Due) 10 mL, IV, Two times a day and prn, Firs t dose on Tue03/18/21 at 2100, Until Discontinued, 10 mL, Continue through discharge, Flush PIV line as scheduled and as often as necessary before and after meds . Use a push / pause technique when flushing to create turbulen ce. zolpidem (AMBIEN) tablet 5 mg 2108 (Given - Provider: Elizabet Lopez RN) 225 (Given - Provider: Pat Rhodes, ETHEL) 2100 (Due) 5 mg, Oral, Bedtime, First dose on Tue03/17/21 at 2100, Until D iscontinued Medication Order 03/19/2021 03/20/2021 03/21/2021 sodium chloride 0.9% IV solution flush bag 1105 (New Bag - Provider: Estrellita Walker RN) IV, Continuous, Starting on Tue03/20/21 at 0955, Until 03/21/21 at 0954, 250 mL, IV line carrier for line flush with blood product infusion. sodium chloride 0.9% IV solution (CANCELED) 0108 (New Bag - Provider: Elizabet Lopez RN) IV, at 75 mL/hr, Continuous, Starting on Tue03/17/21 at 0550, Until Simi 03/19/21 at 1510, 1,000 mL Medication Order 03/19/2021 03/20/2021 03/21/2021 acetaminophen (TYLENOL) tablet 650 mg 650 mg, Oral, Every four hours prn, Star ting on Tue03/17/21 at 0540, Until Discontinued, mild pain, Use FIRST for mild pain. If inadequate response in 60 minutes, may proceed to next choice option or i f no other options, contact provider. A dult patients: Total dose of acetaminophen from all acetaminophen containing products should not exceed 4 grams (4000 mg) per day. Pediatric Patients 0 - 3 months : Maximum of 60 mg/kg/24 hours of aceta minophen. Pediatric Patients older than 3 months: Maximum of 75 mg/kg/24 hours of acetaminophen (Never exceeding 4 grams/day). albuterol (PROVENTIL) (2.5 mg/3mL) 0.083% inhalation soln 2.5 mg 2.5 mg, Nebulization, Every four hours p rn, Starting on Tue03/19/21 at 1517, Until Discontinued, shortness of breath, 3 mL, Standard Neb and PPE Guidelines bisacodyl (DULCOLAX) suppository 10 mg(Linked Group 1) 10 mg, Rectal, One time a day prn, Start ing on Tue03/17/21 at 0540, Until Discontinued, constipation, Use SECOND for constipation. If patient cannot take oral medications, use first for constipation. fentaNYL 100 mcg/2 mL preservative free injection solution 50-10 0 mcg 50-100 mcg, IV, Every one hour prn, Star ting on Tue03/17/21 at 0542, Until Discontinued, severe pain, 2 mL lactated ringers IV solution (bolus) SOLN 500 mL 500 mL, IV, at 999 mL/hr, PRN per paramdewayne ter, 1 dose, Starting on Tue03/18/21 at 1447, Until Discontinued, other (Specify), if MAP less than 65, 500 mL, Post - Op, Call provider if administered loperamide (IMODIUM) capsule 2 mg 2 mg, Oral, Every one hour prn, Starting on Tue03/20/21 at 1508, Until Discontinued, diarrhea, Recommended maximum for children greater than 12 years and adults: 16 mg in 24 hours. nalOXone (NARCAN) injection solution (vial) 0.2 mg 0.2 mg, Injection, Every two minutes prn , Starting on Tue03/17/21 at 0535, Until Discontinued, other (Specify), opioid induced respiratory depression - PARTIAL reversal, 1 mL, PARTIAL REVERSAL/RESPIRAT ORY DEPRESSION If respiratory rate less than 8/minute - call rapid response and administer (until respiratory rate increases to 10/minute). Give IV (preferred), IM or SUBQ nalOXone (NARCAN) injection solution (vial) 0.2 mg 0.2 mg, Injection, Every two minutes prn , Starting on Tue03/18/21 at 1518, Until Discontinued, other (Specify), opioid induced respiratory depression - PARTIAL reversal, 1 mL, PARTIAL REVERSAL/RESPIRAT ORY DEPRESSION If respiratory rate less than 8/minute - call rapid response and administer (until respiratory rate increases to 10/minute). Give IV (preferred), IM or SUBQ nalOXone (NARCAN) injection solution (vial) 0.4 mg 0.4 mg, Injection, Every two minutes prn , Starting on Tue03/17/21 at 0535, Until Discontinued, other (Specify), opioid induced respiratory arrest - FULL reversal, 1 mL, FULL REVERSAL/RESPIRATORY ARREST If patient is not breathing - call [facility] and administer. Give IV (preferred), IM or SUBQ nalOXone (NARCAN) injection solution (vial) 0.4 mg 0.4 mg, Injection, Every two minutes prn , Starting on Tue03/18/21 at 1518, Until Discontinued, other (Specify), opioid induced respiratory arrest - FULL reversal, 1 mL, FULL REVERSAL/RESPIRATORY ARREST If patient is not breathing - call [facility] and administer. Give IV (preferred), IM or SUBQ ondansetron (ZOFRAN ODT) dispersible tablet 4 mg(Linked Group 2) 4 mg, Oral, Four times a day prn, Starti ng on Tue03/17/21 at 0541, Until Discontinued, nausea, vomiting, Use FIRST for nausea / vomiting. If ineffective after 30 minutes use ondansetron IV ondansetron (ZOFRAN) injection solution 4 mg(Linked Group 2) 4 mg, IV, Four times a day prn, Starting on Tue03/17/21 at 0541, Until Discontinued, nausea, vomiting, 2 mL, Use SECOND for nausea / vomiting. If ineffective after 30 minutes and ondansetron ODT used, call physician for alternative. If pref erence is to further dilute for IV administration: First draw up patient-specific dose, then dilute to 10 mL with 0.9% sodium chloride. ondansetron (ZOFRAN) injection solution 4 mg 4 mg, IV, One time prn, 1 dose, Starting on Tue03/18/21 at 1447, Until Discontinued, nausea, 2 mL, Post - Op, If total dose in last 4 hours is less than 8 mg First choice if no ondansetron has been giv en If preference is to further dilute fo r IV administration: First draw up patient-specific dose, then dilute to 10 mL with 0.9% sodium chloride. oxyCODONE (OXY-IR) tablet 5 mg 0544 (Given - Provider: Elizabet Lopez, RN)1204 (Given - Provider: Ami Salamacna, RN)2109 (Given - Provider: Elizabet Lopez, ETHEL) 0600 (Given - Provider: Anatoly Melvin, ETHEL) 0926 (G iven - Provider: Estrellita Walker, RN) 5 mg, Oral, Every six hours prn, Startin g on Tue03/17/21 at 0546, Until Discontinued, severe pain senna-docusate sodium (SENOKOT-S;PERICOLACE) tablet 2 tablet(Yael murrelld Group 1) 2 tablet, Oral, Two times a day prn, Sta rting on Tue03/17/21 at 0540, Until Discontinued, constipation, Use FIRST for constipation unless patient cannot take oral medications. Order Group 1: senna-docusate sodium (SENOKOT-S;PERICOLACE) tablet 2 tabletJump to med 2 tablet, Oral, Two times a day prn, Sta rting on Tue03/17/21 at 0540, Until Discontinued, constipation
Use FIRST for constipation unless patient cannot take oral medications.
And bisacodyl (DULCOLAX) suppository 10 mgJump to med 10 mg, Rectal, One time a day prn, Start ing on Tue03/17/21 at 0540, Until Discontinued, constipation
Use SECOND for constipation. If patient cannot take oral medications, use first for constipation.
Group 2: ondansetron (ZOFRAN ODT) dispersible tablet 4 mgJump to med 4 mg, Oral, Four times a day prn, Starti ng on Tue03/17/21 at 0541, Until Discontinued, nausea, vomiting
Use FIRST for nausea / vomiting. If ineffective after 30 minutes use ondansetron IV
And ondansetron (ZOFRAN) injection solution 4 mgJump to med 4 mg, IV, Four times a day prn, Starting on Tue03/17/21 at 0541, Until Discontinued, nausea, vomiting, 2 mL
Use SECOND for nausea / vomiting. If ineffective after 30 minutes and onda nsetron ODT used, call physician for alt ernative. If preference is to further dilute for IV administration: First draw up patient-specific dose, then dilute to 10 mL with 0.9% sodium chloride.
documented in this encounter Care Teams Leadite Worker Relationship Specialty Start Date End Date Magnolia Roth MD PCP - General Family Medicine 08/19/[address] [place] [id number] Magnolia Roth MD PCP - Attributed Provider 09/26/[address] [place] [id number] documented as of this encounter
[2021-03-23] MEDS: Rivaroxaban 10 MG Tab PO SCH (18:06)
[2021-03-23] MEDS: Zolpidem 5 MG Tab PO SCH (21:33)
[2021-03-23] MEDS: Mirtazapine 15 MG Tab PO SCH (21:34)
[2021-03-23] MEDS: Pramipexole 0.5 MG Tab PO SCH (21:34)
--- NOTE | 2021-03-23 22:15 | PT ---
PATIENT NAME: WESLEY ORR MEDICAL RECORD NUMBER: : [id number] DATE: 03/23/2021 REFERRING PHYSICIAN: Brigitte Arroyo NP ONSET DATE: Date of injury, 03/17/2021; date of surgery, 03/18/2021. DATE OF EVALUATION: 03/23/2021. DIAGNOSIS: Status post internal fixation right femur fracture, right lower extremity weakness. SUBJECTIVE: The patient is here in swing bed status after transferring from [facility] in [place] on the . The patient sustained a fall on 03/17/2021 in her home which she associates with her dog jumping up on her. The patient sustained fracture to the right femur and trochanter. She had surgery early the next day. The patient has had a significant amount of pain and has had a difficult time in trusting the people who have attempted to help transfer and walk with her to this point. The patient said that she has been kind of waiting for me to be there as she thought she could trust me more due to me be being a male and a bigger person, so she knew I could hold her if she started to lose her balance. The patient finds herself very untrusting of the right lower extremity. She does agree to physical therapy today and tells me she will give her best effort. The patient has not been able to toilet other than by using the commode at bedside. She agrees to attempt to do so with nursing staff after she has proven to be better off than she thought with physical therapy. Currently pain is rated a 5/10. The patient's goal is to return home independently as she does have arrangements made for a son and daughter to come stay with her 2 weeks at a time as she does live alone. She does live in a split-level home, so she needs to accommodate 8 to 10 steps to go up and down to each level. OBJECTIVE: TREATMENT TIME: 1525. Time out 1550. TREATMENT: Consisted of physical therapy initial evaluation, low complex, and 16 minutes of therapeutic exercises consisting of the patient self transfer from supine to sit edge of bed and from sit to stand and stand to sit in chair along with 16 consecutive minutes of being on her feet in weightbearing and ambulating inside a front-wheeled walker. The patient was able to ambulate 75 to 80 feet with contact guard assist of one. OBSERVATION: The patient is supine in bed upon my arrival. The incision site appears to be healing normally and free of infection with sutures intact. PAIN: The patient rates current level pain as a 5/10 with mention that she did have a pain pill 1 hour prior to my arrival. PALPATION: Grossly negative. RANGE OF MOTION: Active range of motion of the right knee, foot, and ankle are within normal limits with active range of motion of the right hip limited to 90 degrees of flexion, 10 degrees of extension, 8 degrees of abduction, all limited by pain. Passive range of motion is grossly within functional limits of the right hip. MANUAL MUSCLE TEST: Grade 2/5 at this time in all planes of right hip and grade 4/5 at the knee and ankle. SPECIAL TESTS: Negative. NEUROLOGIC FINDINGS: Grossly normal. ASSESSMENT: Impression: The patient is currently with a swing bed status for improving strength conditioning to restore her independence and ability to return home safely. The patient did cooperate quite well with me today as this was question because nursing had been having some complications getting the patient motivated to do anything for herself. The patient agrees that she was pleasantly surprised that she was able to do as much as she could today with me. GOALS: Please refer to plan of care. PLAN: The patient will be seen on outpatient basis swing bed status 5 days per week, working toward discharge goals. Treatments to include therapeutic exercises, gait training, and home program. The patient understands and agrees to this plan of care and shows good rehab potential to achieve goals established.
[2021-03-24] MEDS: oxyCODONE 5 MG Tab PO PRN (02:04)
[2021-03-24] MEDS: Levothyroxine 75 MCG Tab PO SCH (06:31)
[2021-03-24] MEDS: Ferrous Sulfate 325 MG Tab PO SCH (09:41)
[2021-03-24] MEDS: Aspirin 81 MG Tab.EC PO SCH (09:41)
[2021-03-24] MEDS: atorvaSTATin 10 MG Tab PO SCH (09:41)
[2021-03-24] MEDS: Acetaminophen 325 MG Tab PO SCH ×3 (09:41→21:43)
[2021-03-24] MEDS: Oxybutynin 5 MG Tab.ER PO SCH (09:41)
[2021-03-24] MEDS: Multivitamins with Minerals/Iron/Folic Acid/Lycopene Tab PO SCH (09:42)
[2021-03-24] MEDS: Calcium Citrate/Vitamin D3 315 MG-250 Unit Tab PO SCH (09:42)
[2021-03-24] MEDS: Methocarbamol 500 MG Tab PO SCH ×4 (09:43→21:43)
[2021-03-24] MEDS: Cyanocobalamin (Vitamin B12) 500 MCG Tab PO SCH (09:43)
[2021-03-24] MEDS: Nicotine 21 MG/24 Hr Patch TRDERM SCH (09:43)
[2021-03-24] MEDS: [UNRECOGNIZED DRUG - OTHER] PO SCH (09:44)
--- NOTE | 2021-03-24 11:05 | PCM.SN.2 ---
- Free Text/Narrative Note: Notified of patient refusal of ferrous sulfate due to stomach upset and preference for ferrex 150. Ordered polysaccharide iron complex per patient request and discontinued ferrous sulfate due to patient refusal. Plan to recheck hgb tomorrow per previous orders for ongoing monitoring of post-surgical anemia.
[2021-03-24] MEDS: Iron Polysaccharides Complex 150 MG Cap PO SCH (11:27)
[2021-03-24] MEDS: Rivaroxaban 10 MG Tab PO SCH (17:00)
[2021-03-24] MEDS: Zolpidem 5 MG Tab PO SCH (21:42)
[2021-03-24] MEDS: Mirtazapine 15 MG Tab PO SCH (21:42)
[2021-03-24] MEDS: Pramipexole 0.5 MG Tab PO SCH (21:43)
[2021-03-25] MEDS: Levothyroxine 75 MCG Tab PO SCH (06:29)
[2021-03-25 07:44] LABS: ANION GAP 12.7 mmol/L (5-15); CHLORIDE,CL 103 mmol/L (98-107); SODIUM,NA 139 mmol/L (136-145)
[2021-03-25] MEDS: Nicotine 21 MG/24 Hr Patch TRDERM SCH (08:24)
[2021-03-25] MEDS: Acetaminophen 325 MG Tab PO SCH (08:25)
[2021-03-25] MEDS: Calcium Citrate/Vitamin D3 315 MG-250 Unit Tab PO SCH (08:25)
[2021-03-25] MEDS: Cyanocobalamin (Vitamin B12) 500 MCG Tab PO SCH (08:25)
[2021-03-25] MEDS: Iron Polysaccharides Complex 150 MG Cap PO SCH (08:25)
[2021-03-25] MEDS: Multivitamins with Minerals/Iron/Folic Acid/Lycopene Tab PO SCH (08:26)
[2021-03-25] MEDS: Methocarbamol 500 MG Tab PO SCH ×4 (08:26→22:14)
[2021-03-25] MEDS: atorvaSTATin 10 MG Tab PO SCH (08:26)
[2021-03-25] MEDS: Aspirin 81 MG Tab.EC PO SCH (08:26)
[2021-03-25] MEDS: Oxybutynin 5 MG Tab.ER PO SCH (08:26)
[2021-03-25] MEDS: [UNRECOGNIZED DRUG - OTHER] PO SCH (08:28)
[2021-03-25] MEDS: Acetaminophen 500 MG Tab PO SCH ×2 (13:23→22:14)
[2021-03-25] MEDS: Rivaroxaban 10 MG Tab PO SCH (17:30)
[2021-03-25] MEDS: oxyCODONE 5 MG Tab PO PRN (17:38)
[2021-03-25] MEDS: Zolpidem 5 MG Tab PO SCH (22:14)
[2021-03-25] MEDS: Mirtazapine 15 MG Tab PO SCH (22:14)
[2021-03-25] MEDS: Pramipexole 0.5 MG Tab PO SCH (22:14)
[2021-03-26] MEDS: oxyCODONE 5 MG Tab PO PRN (04:35)
[2021-03-26] MEDS: Levothyroxine 75 MCG Tab PO SCH ×2 (04:36→06:30)
[2021-03-26] MEDS: Methocarbamol 500 MG Tab PO SCH ×4 (08:24→22:01)
[2021-03-26] MEDS: Nicotine 21 MG/24 Hr Patch TRDERM SCH (08:24)
[2021-03-26] MEDS: atorvaSTATin 10 MG Tab PO SCH (08:24)
[2021-03-26] MEDS: Calcium Citrate/Vitamin D3 315 MG-250 Unit Tab PO SCH (08:24)
[2021-03-26] MEDS: Oxybutynin 5 MG Tab.ER PO SCH (08:25)
[2021-03-26] MEDS: Acetaminophen 500 MG Tab PO SCH ×3 (08:25→22:01)
[2021-03-26] MEDS: Cyanocobalamin (Vitamin B12) 500 MCG Tab PO SCH (08:25)
[2021-03-26] MEDS: Multivitamins with Minerals/Iron/Folic Acid/Lycopene Tab PO SCH (08:25)
[2021-03-26] MEDS: Aspirin 81 MG Tab.EC PO SCH (08:25)
[2021-03-26] MEDS: Iron Polysaccharides Complex 150 MG Cap PO SCH (08:25)
[2021-03-26] MEDS: [UNRECOGNIZED DRUG - OTHER] PO SCH (08:25)
[2021-03-26] MEDS: Rivaroxaban 10 MG Tab PO SCH (17:29)
[2021-03-26] MEDS: Zolpidem 5 MG Tab PO SCH (22:00)
[2021-03-26] MEDS: Pramipexole 0.5 MG Tab PO SCH (22:01)
[2021-03-26] MEDS: Mirtazapine 15 MG Tab PO SCH (22:01)
[2021-03-27] MEDS: oxyCODONE 5 MG Tab PO PRN (05:03)
[2021-03-27] MEDS: Levothyroxine 75 MCG Tab PO SCH ×2 (05:03→06:29)
[2021-03-27 07:39] LABS: ANION GAP 12.8 mmol/L (5-15); CHLORIDE,CL 103 mmol/L (98-107); SODIUM,NA 138 mmol/L (136-145)
--- NOTE | 2021-03-27 08:30 | PCM.DCSUM1 ---
Discharge Summary - Hospital Course Free Text/Narrative:: Date of admission: 03/21/21 Date of discharge: 03/27/21 Admission diagnoses: Hospitalization problems and plan: # Closed fracture of right hip, s/p CRIF 03/17/2021 - continue Xarelto 10mg PO daily through 04/11/21. - Continue scheduled acetaminophen 1000mg PO TID - Continue methocarbamol 500mg PO TID PRN for muscle spasm with plan to discontinue - Continue oxycodone 2.5mg PO Q12H PRN for severe/breakthrough pain with small quantity provided at discharge - Continue PT/OT with [facility] - Continue dry gauze dressing changes daily - plan to remove malina on 04/02/21 at follow-up orthopedics appointment in [place] at 10:00 - WBAT with front wheeled walker - Rx provided upon discharge # Acute blood loss anemia - Hgb 8.7 on 03/25 - Continue ferrex 150 as tolerated - Continue vitamin B12 100mcg tablet PO daily Discharge diagnoses: # Hypothyroidism (acquired) - continue levothyroxine 75mcg PO daily # Insomnia - continue zolpidem 10mg HS PRN # Tobacco dependence - continue albuterol PRN and ASA 81mg PO daily; nicotine patch while hospitalized. Refusing nicotine cessation. # OAB - continue oxybutynin 10mg PO daily # Lymphocytic colitis - Continue Imodium AD PRN # Dyslipidemia - continue atorvastatin 10mg PO HS # Restless leg syndrome - continue pramipexole 0.5mg PO HS; discontinue gabapentin per Dr Roth (none since 03/21 as not reordered in swing bed) # Major depressive disorder, in full remission, continue mirtazapine 7.5mg PO HS daily HPI summary: Nadja is a 75yF female who was admitted to [facility] on 03/1421 with complaints of a mechanical fall that led to a right hip fracture. She had a closed reduction with internal fixation of a R intertrochanteric hip fx per orthopedics on 03/18/21. Patient had suspected acute blood loss anemia s/p R hip fx with surgical repair with 1 unit PRBC transfused during acute hospital stay in [place] for Hgb 7.6 with baseline > 14. Patient was advised to continue iron supplements, vitamin B12 and avoid smoking. Post-operative anticoagulation of Xarelto to for anticoagulation through 04/11/21. Patient was discharged to [facility] swing bed on 03/21/21 for additional therapy of PT and OT. Patient has PMH significant for chronic smoking, hypothyroidism, dyslipidemia and lymphocytic colitis with chronic diarrhea. Hospital course: 03/21/2021: No current concerns. Afebrile. VSS. Nicotine patch in place. Message sent to ortho to see if upcoming appointment on 03/25/2021 can be completed in [place] while patient is in swingbed. 03/25/21: Aquacel dressing removed by nursing. Incision closed with malina: 8 malina to proximal incision, 5 malina to the distal incision. Incision healing well, no indication of infectious process. Changed iron supplementation from ferrous sulfate to ferrex 150mg per patient request due to GI effects. Plan to maximize tylenol dosing of 1000mg PO TID scheduled and decrease oxycodone to 2.5mg TID PRN pain due to son/patient concerns of discharging home later this week with narcotics. 03/27/21: Patient planning to discharge home today with [facility] health services. She is using a front wheeled walker with a prescription provided for same. Patient has been progressing well with therapy and is ready to discharge home from a therapy perspective with continuation of therapy services through home health. Vitals stable: T 98.2, HR 76, HR 128/47, RR 20, 98% on room air. Labs stable WBC 8.30, Hgb 8.7, Plt 580; Na 138, K 3.4, BUN 10, Creatinine 0.52, Ca 7.5. Discharge and follow-up recommendations: - Discharge to home with [facility] health services of nursing, PT and OT - New medications at discharge: Oxycodone (Oxy-IR) 2.5mg PO Q12H for severe/breakthrough pain; ferrex 150mg PO daily; continue xarelto 10mg PO daily until 04/11/21 for total of 3 weeks; Tylenol 1000mg PO TID; methocarbamol 500mg PO TID PRN. Discontinue gabapentin per Dr Roth. - Follow-up with Dr Roth at [facility] in approximately 10 days This is the ORDER and Face to Face encounter for Home Health Services to include: 1) Nursing, Physical Therapy, Occupational Therapy 2) Patient has the following clinical findings to support the need for home health services: - Potential for rehospitalization related to post-op complications, recent fall and hip fracture with surgical repair - Health teaching for medication management - Develop an in home therapy program - Pain and symptom control - In-home safety assessment/instruction - Strength and endurance - Wound care and assessment 3) Patient has homebound status due to the following: - Limited or decreased strength/endurance due to fatigue, pain, muscle weakness - Unsteady gait - Risk for infection - Discharge Data Discharge Date: 03/27/21 ([facility]) Discharge Disposition: Home, W Home Health Agency 06 Condition: Good - Referral to Home Health Date of Face to Face Encounter: 03/27/21 Reason for Homebound Status: Patient has homebound status due to the following: - Limited or decreased strength/endurance due to fatigue, pain, muscle weakness. - Unsteady gait. - Risk for infection Primary Care Physician: Magnolia Roth MD Skilled Need: This is the ORDER and Face to Face encounter for Home Health Services to include: 1) Nursing, Physical Therapy, Occupational Therapy, Speech Therapy. 2) Patient has the following clinical findings to support the need for home health services: - Potential for rehospitalization related to post-op complications, recent fall and hip fracture with surgical repair. - Health teaching for medication management. - Develop an in home therapy program. - Pain and symptom control. - In-home safety assessment/instruction. - Strength and endurance. - Wound care and assessment - Patient Summary/Data Consults: Consultations 03/21/21 14:23 OT Evaluation and Treatment [CONS] Routine PT Evaluation and Treatment [CONS] Routine - Patient Instructions Diet: Usual Diet as Tolerated Activity: As Tolerated Driving: Do Not Drive Showering/Bathing: May Shower, No Tub Bathing/Swimming Wound/Incision Care: Change Dressing Daily (continue to complete dry gauze dressing changes daily until fully healed) Notify Provider of: Fever, Increased Pain, Swelling and Redness, Drainage - Discharge Plan *PRESCRIPTION DRUG MONITORING PROGRAM REVIEWED*: Yes (PDMP reviewed in [facility]) *COPY OF PRESCRIPTION DRUG MONITORING REPORT IN PATIENT VICKIE: Not Applicable Home Medications: Home Meds Zolpidem [Ambien] 10 mg PO BEDTIME 11/11/15 [History] Multivitamin with Minerals [Multiple Vitamin] 1 tab PO DAILY 11/01/17 [History] Aspirin [Aspirin EC] 81 mg PO DAILY 10/31/20 [History] Levothyroxine 75 mcg PO ACBREAKFAST 10/31/20 [History] Loperamide [Imodium] 2 mg PO ASDIRECTED PRN 10/31/20 [History] Mirtazapine 7.5 mg PO BEDTIME 10/31/20 [History] Oxybutynin Chloride [Ditropan Xl] 10 mg PO DAILY 10/31/20 [History] Simethicone 125 mg PO QID PRN 10/31/20 [History] atorvaSTATin [Lipitor] 10 mg PO DAILY 10/31/20 [History] Prevagen 2 tab PO DAILY 11/03/20 [History] Calcium Carbonate/Vitamin D3 [Calcium 600Mg-D3 400 Unit Sfgl] 1 cap PO DAILY 03/19/21 [History] Pramipexole [Mirapex] 0.5 mg PO BEDTIME 03/19/21 [History] Albuterol [Proventil Neb Soln] 2.5 mg IN Q4HR PRN 03/21/21 [History] Cyanocobalamin (Vitamin B-12) [Vitamin B-12] 100 mcg PO DAILY 03/21/21 [History] Acetaminophen [Tylenol Extra Strength] 1,000 mg PO TID tablet 03/27/21 [Rx] Iron Polysaccharides Complex [Ferrex 150] 150 mg PO DAILY cap 03/27/21 [Rx] Nicotine [Habitrol] 21 mg TRDERM DAILY patch 03/27/21 [Rx] Rivaroxaban [Xarelto] 10 mg PO DAILY #0 03/27/21 [Rx] methocarbamoL [Methocarbamol] 500 mg PO TID PRN #0 03/27/21 [Rx] oxyCODONE 2.5 mg PO TID PRN tablet 03/27/21 [Rx] Oxygen Therapy Mode: Room Air Referrals: [facility] [Outside] Magnolia Roth MD [Primary Care Provider] - (Schedule a follow-up with Dr Roth at [facility] in about 10 days. -Follow-up orthopedics appointment scheduled at [facility] on 04/02/21 at 10:00 with staple removal ) - Discharge Summary/Plan Comment DC Time >30 min.: Yes Total # of Minutes for Discharge Time: 50 - General Info Date of Service: 03/27/21 Subjective Update: Pain tolerable, muscle spasms across the right hip have decreased. Patient refused iron last evening, reports stools less dark and loose this morning. She states "I am allergic to iron." - Review of Systems General: Reports: No Symptoms HEENT: Reports: No Symptoms Pulmonary: Reports: No Symptoms Cardiovascular: Reports: No Symptoms Gastrointestinal: Reports: Diarrhea (chronic). Denies: Abdominal Pain, Nausea Genitourinary: Reports: Frequency (chronic, on medication for OAB) Musculoskeletal: Reports: Other (R hip pain, tolerable) Skin: Reports: No Symptoms Neurological: Reports: No Symptoms Psychiatric: Reports: No Symptoms - Patient Data Vitals - Most Recent: Last Vital Signs Temp 97.6 F 03/26/21 09:00 Pulse 79 03/26/21 09:00 Resp 16 03/26/21 09:00 BP 128/70 03/26/21 09:00 Pulse Ox 95 03/26/21 09:00 Weight - Most Recent: 143 lb 4.8 oz I&O - Last 24 hours: Intake & Output 03/26/21 03/27/21 03/27/21 22:59 06:59 14:59 Intake Total 450 400 Balance 450 400 Lab Results - Last 24 hrs: Laboratory Results - last 24 hr 03/27/21 Range/Units 07:06 Sodium 138 (136-145) mmol/L Potassium 3.4 L (3.5-5.1) mmol/L Chloride 103 (98-107) mmol/L Carbon Dioxide 25.6 (21.0-32.0) mmol/L Anion Gap 12.8 (5-15) mmol/L BUN 10 (7-18) mg/dL Creatinine 0.52 (0.51-1.17) mg/dL Est Cr Clr Drug Dosing 81.53 mL/min Estimated GFR (MDRD) > 60 mL/min Glucose 82 (70-140) mg/dL Calcium 7.5 L (8.7-10.3) mg/dL Med Orders - Current: Current Medications Acetaminophen (Acetaminophen 500 Mg Tab) 1,000 mg PO TID VANESSA Last Admin: 03/26/21 22:01 Dose: 1,000 mg Documented by: Albuterol (Albuterol 0.083% 2.5 Mg/3 Ml Neb Soln) 2.5 mg NEB Q4HR PRN PRN Reason: Shortness of Breath Aspirin (Aspirin 81 Mg Tab.Ec) 81 mg PO DAILY [facility] Last Admin: 03/26/21 08:25 Dose: 81 mg Documented by: Atorvastatin Calcium (Atorvastatin 10 Mg Tab) 10 mg PO DAILY [facility] Last Admin: 03/26/21 08:24 Dose: 10 mg Documented by: Calcium Citrate (Calcium Citrate/Vitamin D3 315 Mg-250 Unit Tab) 2 tab PO DAILY [facility] Last Admin: 03/26/21 08:24 Dose: 2 tab Documented by: Cyanocobalamin (Cyanocobalamin (Vitamin B12) 500 Mcg Tab) 500 mcg PO DAILY [facility] Last Admin: 03/26/21 08:25 Dose: 500 mcg Documented by: Levothyroxine Sodium (Levothyroxine 75 Mcg Tab) 75 mcg PO ACBREAKFAST [facility] Last Admin: 03/27/21 06:29 Dose: Not Given Documented by: Loperamide HCl (Loperamide 2 Mg Cap) 2 mg PO ASDIRECTED PRN PRN Reason: LOOSE STOOLS Methocarbamol (Methocarbamol 500 Mg Tab) 500 mg PO QID [facility] Last Admin: 03/26/21 22:01 Dose: 500 mg Documented by: Mirtazapine (Mirtazapine 15 Mg Tab) 7.5 mg PO BEDTIME [facility] Last Admin: 03/26/21 22:01 Dose: 7.5 mg Documented by: Multivitamins/Minerals (Multivitamins With Minerals/Iron/Folic Acid/Lycopene Tab) 1 tab PO DAILY [facility] Last Admin: 03/26/21 08:25 Dose: 1 tab Documented by: Nicotine (Nicotine 21 Mg/24 Hr Patch) 21 mg TRDERM DAILY [facility] Last Admin: 03/26/21 08:24 Dose: 21 mg Documented by: Ondansetron HCl (Ondansetron 4 Mg Tab.Dis) 4 mg PO Q6H PRN PRN Reason: Nausea Oxybutynin Chloride (Oxybutynin 5 Mg Tab.Er) 10 mg PO DAILY [facility] Last Admin: 03/26/21 08:25 Dose: 10 mg Documented by: Oxycodone HCl (Oxycodone 5 Mg Tab) 2.5 mg PO TID PRN PRN Reason: Pain (severe 7-10) Last Admin: 03/27/21 05:03 Dose: 2.5 mg Documented by: Ptom- Mind And (Memory) 2 each PO DAILY [facility] Last Admin: 03/26/21 08:25 Dose: 2 each Documented by: Polysaccharide Iron Complex (Iron Polysaccharides Complex 150 Mg Cap) 150 mg PO DAILY [facility] Last Admin: 03/26/21 08:25 Dose: 150 mg Documented by: Pramipexole Dihydrochloride (Pramipexole 0.5 Mg Tab) 0.5 mg PO BEDTIME [facility] Last Admin: 03/26/21 22:01 Dose: 0.5 mg Documented by: Rivaroxaban (Rivaroxaban 10 Mg Tab) 10 mg PO DAILY@1800 [facility] Last Admin: 03/26/21 17:29 Dose: 10 mg Documented by: Senna/Docusate Sodium (Docusate Sodium/Sennosides 50-8.6 Mg Tab) 2 tab PO BID PRN PRN Reason: Constipation Last Admin: 03/21/21 14:25 Dose: 2 tab Documented by: Simethicone (Simethicone 80 Mg Tab.Chew) 80 mg PO QID PRN PRN Reason: flatulence Zolpidem Tartrate (Zolpidem 5 Mg Tab) 10 mg PO BEDTIME [facility] Last Admin: 03/26/21 22:00 Dose: 10 mg Documented by: Discontinued Medications Acetaminophen (Acetaminophen 325 Mg Tab) 650 mg PO Q4HR PRN PRN Reason: Pain Acetaminophen (Acetaminophen 325 Mg Tab) 650 mg PO TID [facility] Last Admin: 03/25/21 08:25 Dose: 650 mg Documented by: Ferrous Sulfate (Ferrous Sulfate 325 Mg Tab) 325 mg PO BID [facility] Last Admin: 03/24/21 09:41 Dose: Not Given Documented by: Gabapentin (Gabapentin 100 Mg Cap) 100 mg PO TID [facility] Last Admin: 03/22/21 08:48 Dose: 100 mg Documented by: Non-Formulary Medication (Cyanocobalamin (Vitamin B-12) [Vitamin B-12]) 100 mcg PO DAILY [facility] Non-Formulary Medication (Naloxone Hcl [Narcan]) 4 mg NS ASDIRECTED PRN PRN Reason: Other Non-Formulary Medication (Simethicone [Simethicone]) 125 mg PO QID PRN PRN Reason: flatulence Oxycodone HCl (Oxycodone 5 Mg Tab) 5 mg PO Q6HR PRN PRN Reason: Pain Last Admin: 03/24/21 02:04 Dose: 5 mg Documented by: - Exam Quality Assessment: Reports: DVT Prophylaxis. Denies: Supplemental Oxygen General: Reports: Alert, Oriented, Cooperative, No Acute Distress HEENT: Reports: Pupils Equal, Pupils Reactive, Mucous Membr. Moist/[place] Neck: Reports: Supple, Trachea Midline Lungs: Reports: Clear to Auscultation, Normal Respiratory Effort Cardiovascular: Reports: Regular Rate, Regular Rhythm, No Murmurs GI/Abdominal Exam: Normal Bowel Sounds, Soft, Non-Tender, No Distention (Female) Exam: Deferred Rectal (Female) Exam: Deferred Back Exam: Reports: Normal Inspection, Full Range of Motion Extremities: Normal Inspection, Non-Tender, No Pedal Edema, Normal Capillary Refill, Limited Range of Motion (to right leg s/p hip fx with surgical repair) Skin: Reports: Warm, Dry Wound/Incisions: Reports: Healing Well, Dressing Dry and Intact Neurological: Reports: No New Focal Deficit Psy/Mental Status: Reports: Alert, Normal Affect, Normal Mood
[2021-03-27] MEDS: Oxybutynin 5 MG Tab.ER PO SCH (08:57)
[2021-03-27] MEDS: Calcium Citrate/Vitamin D3 315 MG-250 Unit Tab PO SCH (08:57)
[2021-03-27] MEDS: Acetaminophen 500 MG Tab PO SCH (08:57)
[2021-03-27] MEDS: Cyanocobalamin (Vitamin B12) 500 MCG Tab PO SCH (08:58)
[2021-03-27] MEDS: Aspirin 81 MG Tab.EC PO SCH (08:58)
[2021-03-27] MEDS: Iron Polysaccharides Complex 150 MG Cap PO SCH (08:58)
[2021-03-27] MEDS: Multivitamins with Minerals/Iron/Folic Acid/Lycopene Tab PO SCH (08:58)
[2021-03-27] MEDS: atorvaSTATin 10 MG Tab PO SCH (08:58)
[2021-03-27] MEDS: Methocarbamol 500 MG Tab PO SCH (08:58)
[2021-03-27] MEDS: Nicotine 21 MG/24 Hr Patch TRDERM SCH (09:03)
[2021-03-27] MEDS: [UNRECOGNIZED DRUG - OTHER] PO SCH (09:05)
--- NOTE | 2021-03-27 09:23 | PCM.SN.2 ---
- Free Text/Narrative Note: Additional information provided per pharmacy for documentation of need for walker: 1. Patient is safely able to use a walker - yes 2. Does patient have a mobility deficit - yes 3. If so, can the deficit be resolved with use of a walker - yes 4. Please indicate patient date of : 41 5. Please indicate ICD-10-CM Dx Code: S72.001A 6. Please indicate length of need in months: 99 - lifetime 7. Please indicate provider (Nelia Larsen APRN, CREDIT AND COLLECTIONS ANALYST)
[2021-03-27 09:54] VITALS: BP 131/71; PULSE 81
== END 2021-03-27 10:40 | disposition home health service (06) | DRG 560 ==
LOC: KA.MS 03-21 11:55
PROVIDERS: ADMIT Nurse Practitioner Family; ATTEND Student in an Organized Health Care Education/Training Program
DX: S72.001D Fracture of unspecified part of neck of right femur, subsequent encounter for closed fracture with routine healing (principal); D62 Acute posthemorrhagic anemia; E03.9 Hypothyroidism, unspecified; G47.00 Insomnia, unspecified; F17.210 Nicotine dependence, cigarettes, uncomplicated; N32.81 Overactive bladder; K52.832 Lymphocytic colitis; Z79.899 Other long term (current) drug therapy; E78.5 Hyperlipidemia, unspecified; G25.81 Restless legs syndrome; F32.5 Major depressive disorder, single episode, in full remission; Z79.890 Hormone replacement therapy; K52.9 Noninfective gastroenteritis and colitis, unspecified; Z79.82 Long term (current) use of aspirin; Z79.01 Long term (current) use of anticoagulants
CPT/HCPCS: 36415; 80048; 85025; 97110-GP; 97116-GP; 97161-GP; 97535-GO; A9270-GY

== ENCOUNTER 2021-04-13 11:46 | Emergency (ER) | payer MEDICARE, BC ==
[2021-04-13 12:04] VITALS: BP 146/43; PULSE 102
[2021-04-13] MEDS ORDERED: Sodium Chloride 0.9% 10 ML Syringe FLUSH PRN (12:05)
[2021-04-13] MEDS ORDERED: Aspirin 81 MG Tab.Chew PO ONE (12:05)
[2021-04-13] MEDS ORDERED: Sodium Chloride 0.9% 1,000 ML IV ONE (12:28)
[2021-04-13 12:36] LABS: ANION GAP 14.2 mmol/L (5-15); CHLORIDE,CL 102 mmol/L (98-107); SODIUM,NA 139 mmol/L (136-145)
[2021-04-13] MEDS ORDERED: NS + KCl 20mEq/L 1,000 ML IV SCH (12:45)
[2021-04-13] MEDS ORDERED: Potassium Chloride 20 MEQ in Premix Bag 1 BAG IV ONE (12:51)
== END 2021-04-13 15:10 | disposition home health service (06) ==
LOC: KA.ED 11:46
DX: R42 Dizziness and giddiness (principal); E87.6 Hypokalemia; E78.00 Pure hypercholesterolemia, unspecified; Z79.82 Long term (current) use of aspirin; Z79.899 Other long term (current) drug therapy; Z96.641 Presence of right artificial hip joint
CPT/HCPCS: 36415; 80048; 84484; 85025; 93010; 96365; 96366; 99284; A9270; J3480; J7030

== ENCOUNTER 2022-06-30 19:12 | Inpatient (IN) | payer MEDICARE, BC ==
[2022-06-30] MEDS ORDERED: Sodium Chloride 0.9% 10 ML Syringe FLUSH PRN (19:27)
[2022-06-30] MEDS ORDERED: Sodium Chloride 0.9% 1,000 ML IV ONE ×2 (19:28→21:42)
[2022-06-30] MEDS ORDERED: Ciprofloxacin in D5W 400 MG in Premix Bag 1 BAG IV ONE ×2 (20:44)
[2022-06-30 21:07] LABS: ANION GAP 10.7 mmol/L (5-15); SODIUM,NA 124 mmol/L (136-145)
[2022-06-30 21:09] LABS: CHLORIDE,CL 88 mmol/L (98-107); ESTIMATED GFR 37 mL/min (>=60)
[2022-06-30] MEDS ORDERED: Potassium Chloride 20 MEQ in Premix Bag 1 BAG IV ONE ×2 (21:20→23:37)
[2022-06-30] MEDS ORDERED: Sodium Chloride 0.9% 1,000 ML ONE (21:42)
[2022-06-30] MEDS ORDERED: Sodium Chloride 0.9% 50 ML IV SCH (22:13)
[2022-06-30] MEDS ORDERED: Iopamidol 755 Mg/ML 75 ML Bottle IVPUSH ONE (22:13)
[2022-07-01] MEDS: Sodium Chloride 0.9% 1,000 ML IV SCH ×2 (00:20→08:50)
[2022-07-01 00:40] LABS: ANION GAP 11.4 mmol/L (5-15)
[2022-07-01] MEDS ORDERED: Potassium Chloride 20 MEQ Tab.ER PO ONE ×2 (01:23→11:20)
[2022-07-01] MEDS ORDERED: Magnesium Sulfate/Water 4 GM in Premix Bag 1 BAG IV ONE (01:28)
[2022-07-01] MEDS ORDERED: Loperamide 2 MG Cap PO ONE ×2 (01:31→03:30)
[2022-07-01] MEDS ORDERED: Sodium Chloride 0.9% 1,000 ML IV ONE ×2 (05:51→11:38)
[2022-07-01] MEDS ORDERED: Acetaminophen 325 MG Tab PO PRN (09:49)
[2022-07-01] MEDS ORDERED: Loperamide 2 MG Cap PO PRN (09:55)
[2022-07-01] MEDS ORDERED: Nicotine 21 MG/24 Hr Patch TRDERM SCH (10:00)
[2022-07-01] MEDS ORDERED: Ciprofloxacin in D5W 400 MG in Premix Bag 1 BAG IV SCH ×2 (10:00)
[2022-07-01] MEDS ORDERED: [UNRECOGNIZED DRUG - REMARK] PO SCH (10:00)
[2022-07-01 10:14] LABS: ANION GAP 13.8 mmol/L (5-15)
[2022-07-01] MEDS ORDERED: metroNIDAZOLE 500 MG Tab PO SCH (11:00)
[2022-07-01 11:10] VITALS: BP 86/43; PULSE 93
[2022-07-01] MEDS ORDERED: 50% Dextrose in Water 50 ML Syringe IVPUSH ONE (11:21)
[2022-07-01] MEDS ORDERED: Piperacillin/Tazobactam 3.375 GM in Sodium Chloride 0.9% 50 ML IV ONE (13:40)
[2022-07-01] MEDS ORDERED: Piperacillin/Tazobactam/Dext 3.375 GM in Premix Bag 1 BAG IV SCH (13:45)
[2022-07-01] MEDS ORDERED: Enoxaparin 30 MG/0.3 ML Syringe SUBCUT SCH (20:00)
[2022-07-01] MEDS ORDERED: Mirtazapine 15 MG Tab PO SCH (21:00)
[2022-07-01] MEDS ORDERED: Melatonin 3 MG Tab PO SCH (21:00)
[2022-07-01] MEDS ORDERED: rOPINIRole 1 MG Tab PO SCH (21:00)
[2022-07-02] MEDS ORDERED: Levothyroxine 75 MCG Tab PO SCH (07:30)
[2022-07-02] MEDS ORDERED: Budesonide 3 MG Cap.ER PO SCH (09:00)
[2022-07-02] MEDS ORDERED: REMOVE NICOTINE TRDERM SCH (09:00)
== END 2022-07-01 13:54 | DRG 872 ==
LOC: KA.ED 19:12 → KA.MS 23:28
PROVIDERS: ADMIT Student in an Organized Health Care Education/Training Program; ATTEND Student in an Organized Health Care Education/Training Program
DX: R10.9 Unspecified abdominal pain (principal); A41.9 Sepsis, unspecified organism; N39.0 Urinary tract infection, site not specified; E87.1 Hypo-osmolality and hyponatremia; E87.20 Acidosis, unspecified; R19.7 Diarrhea, unspecified; K52.832 Lymphocytic colitis; M19.90 Unspecified osteoarthritis, unspecified site; G89.29 Other chronic pain; F41.9 Anxiety disorder, unspecified; E87.6 Hypokalemia; D50.9 Iron deficiency anemia, unspecified; E53.8 Deficiency of other specified B group vitamins; E86.0 Dehydration; I95.89 Other hypotension; E87.8 Other disorders of electrolyte and fluid balance, not elsewhere classified; E83.42 Hypomagnesemia; E88.09 Other disorders of plasma-protein metabolism, not elsewhere classified; E78.5 Hyperlipidemia, unspecified; F32.5 Major depressive disorder, single episode, in full remission; M54.50 Low back pain, unspecified; N32.81 Overactive bladder; Z66 Do not resuscitate; G47.00 Insomnia, unspecified; I95.9 Hypotension, unspecified; E03.9 Hypothyroidism, unspecified; E78.00 Pure hypercholesterolemia, unspecified; Z98.890 Other specified postprocedural states; G25.81 Restless legs syndrome; F17.210 Nicotine dependence, cigarettes, uncomplicated; D75.1 Secondary polycythemia; Z79.82 Long term (current) use of aspirin; Z79.899 Other long term (current) drug therapy
CPT/HCPCS: 36415; 51702; 71046; 74177; 80048; 80053; 81001; 82150; 83605; 83690; 83735; 83880; 84484; 85025; 86140; 87040; 87076; 87077; 87086; 87088; 87186; 87324; 87449; 93010; 96361; 96365; 96366; 96368; 99284; 99285-25; A9270-GY; J0744; J2543; J3475; J3480; J3490; J7030; Q9967

== ENCOUNTER 2022-07-09 11:15 | Inpatient (IN) | payer MEDICARE, BC ==
[2022-07-09] MEDS ORDERED: Sucralfate 1 GM Tab PO SCH (21:00)
[2022-07-09] MEDS ORDERED: Oxybutynin 5 MG Tab PO SCH ×2 (21:00)
[2022-07-09] MEDS: Zolpidem 5 MG Tab PO PRN (21:13)
[2022-07-09] MEDS: Acetaminophen 500 MG Tab PO SCH (21:14)
[2022-07-09] MEDS: rOPINIRole 1 MG Tab PO SCH (21:14)
[2022-07-09] MEDS: Calcium Citrate/Vitamin D3 315 MG-250 Unit Tab PO SCH (21:14)
[2022-07-09] MEDS: Sucralfate 1 GM Tab PO SCH (21:15)
[2022-07-09] MEDS: Mirtazapine 15 MG Tab PO SCH (21:16)
[2022-07-09] MEDS: Ciprofloxacin 500 MG Tab PO SCH (21:16)
[2022-07-09] MEDS: Melatonin 3 MG Tab PO SCH (21:17)
[2022-07-09] MEDS: Oxybutynin 5 MG Tab.ER PO SCH (21:28)
[2022-07-10] MEDS: Pantoprazole 40 MG Tab.CR PO SCH ×3 (05:55→17:19)
[2022-07-10] MEDS: Levothyroxine 75 MCG Tab PO SCH ×2 (05:55→06:29)
[2022-07-10] MEDS ORDERED: PREVAGEN PO SCH (09:00)
[2022-07-10] MEDS: Potassium Chloride 10 MEQ Tab.ER PO SCH (09:26)
[2022-07-10] MEDS: Furosemide 40 MG Tab PO SCH (09:26)
[2022-07-10] MEDS: Acetaminophen 500 MG Tab PO SCH ×3 (09:27→21:10)
[2022-07-10] MEDS: Iron Polysaccharides Complex 150 MG Cap PO SCH (09:27)
[2022-07-10] MEDS: Ciprofloxacin 500 MG Tab PO SCH ×2 (09:28→21:09)
[2022-07-10] MEDS: Multivitamins with Minerals/Iron/Folic Acid/Lycopene Tab PO SCH (09:28)
[2022-07-10] MEDS: Aspirin 81 MG Tab.EC PO SCH (09:28)
[2022-07-10] MEDS: Calcium Citrate/Vitamin D3 315 MG-250 Unit Tab PO SCH ×2 (09:28→21:09)
[2022-07-10] MEDS: Oxybutynin 5 MG Tab.ER PO SCH ×2 (09:28→21:10)
[2022-07-10] MEDS: atorvaSTATin 10 MG Tab PO SCH (09:29)
[2022-07-10] MEDS: Nicotine 14 MG/24 Hr Patch TRDERM SCH (09:29)
[2022-07-10] MEDS: Sucralfate 1 GM Tab PO SCH ×4 (09:50→21:09)
[2022-07-10] MEDS: Melatonin 3 MG Tab PO SCH (21:09)
[2022-07-10] MEDS: rOPINIRole 1 MG Tab PO SCH (21:09)
[2022-07-10] MEDS: Zolpidem 5 MG Tab PO PRN (21:10)
[2022-07-10] MEDS: Mirtazapine 15 MG Tab PO SCH (21:10)
[2022-07-10] MEDS: Simethicone 80 MG Tab.Chew PO PRN (21:45)
[2022-07-11] MEDS: Ondansetron 4 MG Tab.DIS PO PRN ×3 (03:55→19:20)
[2022-07-11] MEDS: Acetaminophen 500 MG Tab PO SCH ×4 (04:03→21:16)
[2022-07-11] MEDS: Simethicone 80 MG Tab.Chew PO PRN ×2 (04:34→19:06)
[2022-07-11] MEDS: Pantoprazole 40 MG Tab.CR PO SCH ×3 (04:34→17:20)
[2022-07-11] MEDS: Levothyroxine 75 MCG Tab PO SCH (07:43)
[2022-07-11] MEDS: Calcium Citrate/Vitamin D3 315 MG-250 Unit Tab PO SCH ×2 (09:03→20:01)
[2022-07-11] MEDS: atorvaSTATin 10 MG Tab PO SCH (09:03)
[2022-07-11] MEDS: Potassium Chloride 10 MEQ Tab.ER PO SCH (09:03)
[2022-07-11] MEDS: Ciprofloxacin 500 MG Tab PO SCH ×2 (09:04→20:30)
[2022-07-11] MEDS: Oxybutynin 5 MG Tab.ER PO SCH ×2 (09:04→20:48)
[2022-07-11] MEDS: Multivitamins with Minerals/Iron/Folic Acid/Lycopene Tab PO SCH (09:04)
[2022-07-11] MEDS: Aspirin 81 MG Tab.EC PO SCH (09:04)
[2022-07-11] MEDS: Nicotine 14 MG/24 Hr Patch TRDERM SCH (09:04)
[2022-07-11] MEDS: Furosemide 40 MG Tab PO SCH (09:04)
[2022-07-11] MEDS: Sucralfate 1 GM Tab PO SCH ×4 (09:33→20:13)
[2022-07-11] MEDS ORDERED: Simethicone 80 MG Tab.Chew PO ONE (19:45)
[2022-07-11] MEDS: Mirtazapine 15 MG Tab PO SCH (20:48)
[2022-07-11] MEDS: rOPINIRole 1 MG Tab PO SCH (21:01)
[2022-07-11] MEDS: Zolpidem 5 MG Tab PO PRN (21:42)
[2022-07-11] MEDS: Melatonin 3 MG Tab PO SCH (21:42)
[2022-07-12] MEDS: Acetaminophen 500 MG Tab PO SCH ×2 (05:15→10:00)
[2022-07-12] MEDS: Levothyroxine 75 MCG Tab PO SCH (07:42)
[2022-07-12] MEDS: Pantoprazole 40 MG Tab.CR PO SCH ×2 (07:42→17:31)
[2022-07-12] MEDS: Calcium Citrate/Vitamin D3 315 MG-250 Unit Tab PO SCH ×2 (09:26→20:15)
[2022-07-12] MEDS: Multivitamins with Minerals/Iron/Folic Acid/Lycopene Tab PO SCH (09:26)
[2022-07-12] MEDS: Furosemide 40 MG Tab PO SCH (09:26)
[2022-07-12] MEDS: Oxybutynin 5 MG Tab.ER PO SCH ×2 (09:31→20:14)
[2022-07-12] MEDS: Potassium Chloride 10 MEQ Tab.ER PO SCH (09:31)
[2022-07-12] MEDS: Sucralfate 1 GM Tab PO SCH ×4 (09:32→20:15)
[2022-07-12] MEDS: Ciprofloxacin 500 MG Tab PO SCH ×2 (09:32→20:12)
[2022-07-12] MEDS: atorvaSTATin 10 MG Tab PO SCH (09:32)
[2022-07-12] MEDS: Nicotine 14 MG/24 Hr Patch TRDERM SCH (09:33)
[2022-07-12] MEDS: Aspirin 81 MG Tab.EC PO SCH (09:33)
[2022-07-12] MEDS: Iron Polysaccharides Complex 150 MG Cap PO SCH (09:33)
[2022-07-12] MEDS ORDERED: Acetaminophen 500 MG Tab PO PRN (09:52)
[2022-07-12] MEDS: Ondansetron 4 MG Tab.DIS PO PRN ×2 (14:56→23:43)
[2022-07-12] MEDS: Simethicone 80 MG Tab.Chew PO PRN (14:57)
[2022-07-12] MEDS ORDERED: Diatrizoate Meglumine/Diatrizoate Sodium 37% 30 ML Bottle PO ONE (19:32)
[2022-07-12] MEDS ORDERED: Iopamidol 755 Mg/ML 75 ML Bottle IVPUSH ONE (19:32)
[2022-07-12] MEDS ORDERED: Sodium Chloride 0.9% 50 ML IV SCH (19:45)
[2022-07-12] MEDS: Mirtazapine 15 MG Tab PO SCH (20:13)
[2022-07-12] MEDS: Melatonin 3 MG Tab PO SCH (20:14)
[2022-07-12] MEDS: rOPINIRole 1 MG Tab PO SCH (20:15)
[2022-07-12 21:11] LABS: ANION GAP 9.2 mmol/L (5-15)
[2022-07-12 22:26] VITALS: BP 100/47; PULSE 97
== END 2022-07-13 00:05 | disposition critical access hospital (66) | DRG 948 ==
LOC: KA.MS 15:00
PROVIDERS: ADMIT Family Medicine; ATTEND Family Medicine
DX: R53.81 Other malaise (principal); K56.609 Unspecified intestinal obstruction, unspecified as to partial versus complete obstruction; E87.1 Hypo-osmolality and hyponatremia; K52.9 Noninfective gastroenteritis and colitis, unspecified; E87.70 Fluid overload, unspecified; D50.9 Iron deficiency anemia, unspecified; E03.9 Hypothyroidism, unspecified; F32.A Depression, unspecified; G47.00 Insomnia, unspecified; N32.81 Overactive bladder; G25.81 Restless legs syndrome; Z66 Do not resuscitate; M54.9 Dorsalgia, unspecified; E78.00 Pure hypercholesterolemia, unspecified; M19.90 Unspecified osteoarthritis, unspecified site; G89.29 Other chronic pain; F41.9 Anxiety disorder, unspecified; E53.8 Deficiency of other specified B group vitamins; Z79.82 Long term (current) use of aspirin; Z79.899 Other long term (current) drug therapy; Z79.890 Hormone replacement therapy; Z98.890 Other specified postprocedural states; Z87.891 Personal history of nicotine dependence
CPT/HCPCS: 36415; 74177; 80053; 83605; 85025; 86140; A9270-GY; J3490; Q9963; Q9967

== ENCOUNTER 2022-07-13 00:05 | Inpatient (IN) | payer MEDICARE, BC ==
[2022-07-13] MEDS: Ondansetron 4 MG/2 ML SDV IV PRN (00:12)
[2022-07-13] MEDS: Sodium Chloride 0.9% 1,000 ML IV SCH ×2 (00:15→16:17)
[2022-07-13] MEDS ORDERED: Sodium Chloride 0.9% 10 ML Syringe FLUSH PRN (00:29)
[2022-07-13] MEDS ORDERED: Potassium Chloride 20 MEQ in Premix Bag 1 BAG IV ONE ×2 (10:56→13:00)
[2022-07-13] MEDS ORDERED: Heparin Sodium 5,000 Units/ML Vial SUBCUT SCH (11:00)
[2022-07-13] MEDS: Pantoprazole 40 MG Vial IVPUSH SCH (11:26)
[2022-07-13] MEDS: Ciprofloxacin in D5W 400 MG in Premix Bag 1 BAG IV SCH ×4 (11:31→22:36)
[2022-07-13] MEDS ORDERED: Acetaminophen 500 MG Tab PO ONE (16:43)
[2022-07-13] MEDS ORDERED: Iopamidol 755 Mg/ML 75 ML Bottle IVPUSH ONE (21:28)
[2022-07-13] MEDS ORDERED: Diatrizoate Meglumine/Diatrizoate Sodium 37% 30 ML Bottle PO ONE (21:28)
[2022-07-13] MEDS ORDERED: Sodium Chloride 0.9% 50 ML IV SCH (21:30)
[2022-07-13] MEDS ORDERED: Ciprofloxacin in D5W 200 ML ONE (22:34)
[2022-07-14] MEDS ORDERED: Acetaminophen 500 MG Tab PO PRN (05:33)
[2022-07-14] MEDS: Sodium Chloride 0.9% 1,000 ML IV SCH ×2 (07:34→21:09)
[2022-07-14 07:53] LABS: ANION GAP 10.6 mmol/L (5-15)
[2022-07-14] MEDS: Pantoprazole 40 MG Vial IVPUSH SCH (08:51)
[2022-07-14] MEDS: Magnesium Oxide 500 MG Tab PO SCH (10:13)
[2022-07-14] MEDS: atorvaSTATin 10 MG Tab PO SCH (10:13)
[2022-07-14] MEDS: Aspirin 81 MG Tab.EC PO SCH (10:13)
[2022-07-14] MEDS: Levothyroxine 75 MCG Tab PO SCH (10:13)
[2022-07-14] MEDS: Oxybutynin 5 MG Tab.ER PO SCH ×2 (10:13→21:07)
[2022-07-14] MEDS ORDERED: Zolpidem 5 MG Tab PO PRN (12:15)
[2022-07-14] MEDS: Acetaminophen 500 MG Tab PO SCH ×2 (13:43→21:08)
[2022-07-14] MEDS ORDERED: Magnesium Oxide 500 MG Tab PO ONE (16:00)
[2022-07-14] MEDS: Melatonin 3 MG Tab PO SCH (21:07)
[2022-07-14] MEDS: rOPINIRole 1 MG Tab PO SCH (21:08)
[2022-07-14] MEDS: Mirtazapine 15 MG Tab PO SCH (21:08)
[2022-07-14] MEDS: Omeprazole 20 MG Cap.CR PO SCH (21:12)
[2022-07-14] MEDS: Simethicone 80 MG Tab.Chew PO PRN (22:35)
[2022-07-15] MEDS: Simethicone 80 MG Tab.Chew PO PRN ×2 (03:31→21:41)
[2022-07-15] MEDS: Ondansetron 4 MG/2 ML SDV IV PRN ×2 (03:31→12:00)
[2022-07-15] MEDS: Levothyroxine 75 MCG Tab PO SCH ×2 (06:19→06:32)
[2022-07-15] MEDS: Omeprazole 20 MG Cap.CR PO SCH ×3 (06:19→17:34)
[2022-07-15 07:51] LABS: ANION GAP 8.8 mmol/L (5-15)
[2022-07-15] MEDS: Acetaminophen 500 MG Tab PO SCH ×3 (08:41→20:35)
[2022-07-15] MEDS: atorvaSTATin 10 MG Tab PO SCH (08:42)
[2022-07-15] MEDS: Pantoprazole 40 MG Vial IVPUSH SCH (08:42)
[2022-07-15] MEDS: Aspirin 81 MG Tab.EC PO SCH (08:42)
[2022-07-15] MEDS: Magnesium Oxide 500 MG Tab PO SCH (08:42)
[2022-07-15] MEDS: Oxybutynin 5 MG Tab.ER PO SCH ×2 (08:42→20:36)
[2022-07-15] MEDS ORDERED: Potassium Bicarbonate 25 MEQ Tab.EFF PO ONE (11:24)
[2022-07-15] MEDS: Sodium Chloride 0.9% 1,000 ML IV SCH (11:41)
[2022-07-15] MEDS ORDERED: Pseudoephedrine 30 MG Tab PO PRN (11:59)
[2022-07-15] MEDS ORDERED: Magnesium Oxide 500 MG Tab PO ONE (16:00)
[2022-07-15] MEDS: Melatonin 3 MG Tab PO SCH (20:36)
[2022-07-15] MEDS: Mirtazapine 15 MG Tab PO SCH (20:37)
[2022-07-15] MEDS: rOPINIRole 1 MG Tab PO SCH (20:37)
[2022-07-16] MEDS: Sodium Chloride 0.9% 1,000 ML IV SCH (01:38)
[2022-07-16] MEDS: Levothyroxine 75 MCG Tab PO SCH ×2 (05:58→06:32)
[2022-07-16] MEDS: Omeprazole 20 MG Cap.CR PO SCH ×3 (05:58→17:24)
[2022-07-16] MEDS: Oxybutynin 5 MG Tab.ER PO SCH ×2 (09:25→20:55)
[2022-07-16] MEDS: Acetaminophen 500 MG Tab PO SCH ×3 (09:26→20:48)
[2022-07-16] MEDS: Aspirin 81 MG Tab.EC PO SCH (09:26)
[2022-07-16] MEDS: atorvaSTATin 10 MG Tab PO SCH (09:26)
[2022-07-16] MEDS: Pantoprazole 40 MG Vial IVPUSH SCH (09:35)
[2022-07-16] MEDS ORDERED: Potassium Bicarbonate 25 MEQ Tab.EFF PO ONE (12:04)
[2022-07-16] MEDS: Iron Polysaccharides Complex 150 MG Cap PO SCH (12:24)
[2022-07-16] MEDS: Magnesium Oxide 500 MG Tab PO SCH (12:24)
[2022-07-16] MEDS: Mirtazapine 15 MG Tab PO SCH (20:47)
[2022-07-16] MEDS: rOPINIRole 1 MG Tab PO SCH (20:48)
[2022-07-16] MEDS: Melatonin 3 MG Tab PO SCH (20:48)
[2022-07-17] MEDS: Levothyroxine 75 MCG Tab PO SCH (07:26)
[2022-07-17] MEDS: Omeprazole 20 MG Cap.CR PO SCH (07:26)
[2022-07-17] MEDS: Aspirin 81 MG Tab.EC PO SCH (08:21)
[2022-07-17] MEDS: atorvaSTATin 10 MG Tab PO SCH (08:21)
[2022-07-17] MEDS: Pantoprazole 40 MG Vial IVPUSH SCH (08:21)
[2022-07-17] MEDS: Oxybutynin 5 MG Tab.ER PO SCH (08:22)
[2022-07-17] MEDS: Acetaminophen 500 MG Tab PO SCH (08:22)
[2022-07-17] MEDS ORDERED: Nicotine 21 MG/24 Hr Patch TRDERM SCH (11:45)
[2022-07-17] MEDS: Magnesium Oxide 500 MG Tab PO SCH (12:12)
[2022-07-17] MEDS: Iron Polysaccharides Complex 150 MG Cap PO SCH (12:12)
[2022-07-17 13:12] VITALS: BP 114/47; PULSE 90
[2022-07-18] MEDS ORDERED: Furosemide 20 MG Tab PO SCH (09:00)
== END 2022-07-17 12:09 | disposition swing bed (61) | DRG 389 ==
LOC: KA.MS 00:05 → UNDOADMIN 00:10 → KA.MS 00:10 → UNDOADMIN 00:12
PROVIDERS: ADMIT Family Medicine; ATTEND Family Medicine
PROC: 0DH67UZ Insertion of Feeding Device into Stomach, Via Natural or Artificial Opening (ICD-10-PCS; principal; 2022-07-13)
DX: K56.609 Unspecified intestinal obstruction, unspecified as to partial versus complete obstruction (principal); R78.81 Bacteremia; E87.6 Hypokalemia; Z66 Do not resuscitate; E83.42 Hypomagnesemia; E88.09 Other disorders of plasma-protein metabolism, not elsewhere classified; D50.9 Iron deficiency anemia, unspecified; E87.70 Fluid overload, unspecified; K52.9 Noninfective gastroenteritis and colitis, unspecified; E78.00 Pure hypercholesterolemia, unspecified; F17.210 Nicotine dependence, cigarettes, uncomplicated; M19.90 Unspecified osteoarthritis, unspecified site; F41.9 Anxiety disorder, unspecified; E53.8 Deficiency of other specified B group vitamins; N32.81 Overactive bladder; E03.9 Hypothyroidism, unspecified; M54.42 Lumbago with sciatica, left side; G25.81 Restless legs syndrome; F32.A Depression, unspecified; G47.00 Insomnia, unspecified; Z79.82 Long term (current) use of aspirin; Z79.899 Other long term (current) drug therapy; Z79.890 Hormone replacement therapy; Z98.890 Other specified postprocedural states; Z87.01 Personal history of pneumonia (recurrent)
CPT/HCPCS: 36415; 71045; 80048; 80053; 83735; 85025; 86140; A9270-GY; C9113; J0744; J1644; J2405; J3480; J7030

== ENCOUNTER 2022-07-16 11:02 | Inpatient (IN) | payer MEDICARE, BC ==
[2022-07-17] MEDS ORDERED: Sodium Chloride 0.9% 10 ML Syringe FLUSH PRN (12:11)
[2022-07-17] MEDS ORDERED: Ondansetron 4 MG/2 ML SDV IV PRN (12:11)
[2022-07-17] MEDS: Acetaminophen 500 MG Tab PO SCH ×2 (13:46→21:50)
[2022-07-17] MEDS: Omeprazole 20 MG Cap.CR PO SCH (18:00)
[2022-07-17] MEDS: Zolpidem 5 MG Tab PO PRN (21:47)
[2022-07-17] MEDS: Melatonin 3 MG Tab PO SCH (21:48)
[2022-07-17] MEDS: Mirtazapine 15 MG Tab PO SCH (21:49)
[2022-07-17] MEDS: Oxybutynin 5 MG Tab.ER PO SCH (21:49)
[2022-07-17] MEDS: rOPINIRole 1 MG Tab PO SCH (21:49)
[2022-07-17] MEDS: Pseudoephedrine 30 MG Tab PO PRN (21:49)
[2022-07-18] MEDS: Omeprazole 20 MG Cap.CR PO SCH ×2 (08:01→17:57)
[2022-07-18] MEDS: Levothyroxine 75 MCG Tab PO SCH (08:01)
[2022-07-18] MEDS: Potassium Chloride 10 MEQ Tab.ER PO SCH (08:01)
[2022-07-18] MEDS: Nicotine 21 MG/24 Hr Patch TRDERM SCH (08:02)
[2022-07-18] MEDS: atorvaSTATin 10 MG Tab PO SCH (08:03)
[2022-07-18] MEDS: Furosemide 40 MG Tab PO SCH (08:03)
[2022-07-18] MEDS: Acetaminophen 500 MG Tab PO SCH ×3 (08:03→21:14)
[2022-07-18] MEDS: Aspirin 81 MG Tab.EC PO SCH (08:03)
[2022-07-18] MEDS: Oxybutynin 5 MG Tab.ER PO SCH ×2 (08:03→21:13)
[2022-07-18] MEDS ORDERED: Pantoprazole 40 MG Vial IVPUSH SCH (09:00)
[2022-07-18] MEDS: Magnesium Oxide 500 MG Tab PO SCH (11:39)
[2022-07-18] MEDS ORDERED: Iron Polysaccharides Complex 150 MG Cap PO SCH (12:00)
[2022-07-18] MEDS: Simethicone 80 MG Tab.Chew PO PRN (20:28)
[2022-07-18] MEDS: Melatonin 3 MG Tab PO SCH (21:13)
[2022-07-18] MEDS: rOPINIRole 1 MG Tab PO SCH (21:13)
[2022-07-18] MEDS: Pseudoephedrine 30 MG Tab PO PRN (21:13)
[2022-07-18] MEDS: Mirtazapine 15 MG Tab PO SCH (21:13)
[2022-07-18] MEDS: Zolpidem 5 MG Tab PO PRN (21:13)
[2022-07-19] MEDS: Omeprazole 20 MG Cap.CR PO SCH ×3 (06:21→16:31)
[2022-07-19] MEDS: Levothyroxine 75 MCG Tab PO SCH (06:29)
[2022-07-19] MEDS: Nicotine 21 MG/24 Hr Patch TRDERM SCH (08:30)
[2022-07-19] MEDS: Acetaminophen 500 MG Tab PO SCH ×3 (08:31→21:27)
[2022-07-19] MEDS: Furosemide 40 MG Tab PO SCH (08:31)
[2022-07-19] MEDS: atorvaSTATin 10 MG Tab PO SCH (08:31)
[2022-07-19] MEDS: Oxybutynin 5 MG Tab.ER PO SCH ×2 (08:31→21:25)
[2022-07-19] MEDS: Potassium Chloride 10 MEQ Tab.ER PO SCH (08:31)
[2022-07-19] MEDS: Aspirin 81 MG Tab.EC PO SCH (08:31)
[2022-07-19] MEDS: Magnesium Oxide 500 MG Tab PO SCH (12:01)
[2022-07-19] MEDS: rOPINIRole 1 MG Tab PO SCH (21:25)
[2022-07-19] MEDS: Melatonin 3 MG Tab PO SCH (21:26)
[2022-07-19] MEDS: Mirtazapine 15 MG Tab PO SCH (21:26)
[2022-07-19] MEDS: Zolpidem 5 MG Tab PO PRN (21:28)
[2022-07-20] MEDS: Omeprazole 20 MG Cap.CR PO SCH ×3 (05:50→18:21)
[2022-07-20] MEDS: Levothyroxine 75 MCG Tab PO SCH ×2 (05:51→06:32)
[2022-07-20] MEDS: Oxybutynin 5 MG Tab.ER PO SCH ×2 (08:28→21:53)
[2022-07-20] MEDS: Furosemide 40 MG Tab PO SCH (08:30)
[2022-07-20] MEDS: Aspirin 81 MG Tab.EC PO SCH (08:30)
[2022-07-20] MEDS: Acetaminophen 500 MG Tab PO SCH ×4 (08:30→22:55)
[2022-07-20] MEDS: atorvaSTATin 10 MG Tab PO SCH (08:31)
[2022-07-20] MEDS: Potassium Chloride 10 MEQ Tab.ER PO SCH (08:31)
[2022-07-20] MEDS: Nicotine 21 MG/24 Hr Patch TRDERM SCH (08:32)
[2022-07-20] MEDS: Iron Polysaccharides Complex 150 MG Cap PO SCH (13:08)
[2022-07-20] MEDS: Magnesium Oxide 500 MG Tab PO SCH (13:08)
[2022-07-20] MEDS: Ondansetron 4 MG Tab.DIS PO PRN (14:12)
[2022-07-20] MEDS ORDERED: guaiFENesin 600 MG Tab.ER PO PRN (14:39)
[2022-07-20] MEDS: Loratadine 10 MG Tab PO SCH (15:33)
[2022-07-20] MEDS: Pseudoephedrine 30 MG Tab PO PRN (15:33)
[2022-07-20] MEDS: Mirtazapine 15 MG Tab PO SCH (21:53)
[2022-07-20] MEDS: Melatonin 3 MG Tab PO SCH (21:53)
[2022-07-20] MEDS: rOPINIRole 1 MG Tab PO SCH (21:54)
[2022-07-20] MEDS: Zolpidem 5 MG Tab PO PRN (22:55)
[2022-07-21] MEDS: Omeprazole 20 MG Cap.CR PO SCH ×3 (06:14→17:27)
[2022-07-21] MEDS: Levothyroxine 75 MCG Tab PO SCH ×2 (06:14→06:34)
[2022-07-21] MEDS: guaiFENesin 600 MG Tab.ER PO PRN (06:18)
[2022-07-21] MEDS: Acetaminophen 500 MG Tab PO SCH ×4 (06:20→21:12)
[2022-07-21 07:50] LABS: ANION GAP 7.8 mmol/L (5-15)
[2022-07-21] MEDS: Potassium Chloride 10 MEQ Tab.ER PO SCH (08:07)
[2022-07-21] MEDS: Oxybutynin 5 MG Tab.ER PO SCH ×2 (08:08→21:12)
[2022-07-21] MEDS: atorvaSTATin 10 MG Tab PO SCH (08:08)
[2022-07-21] MEDS: Loratadine 10 MG Tab PO SCH (08:09)
[2022-07-21] MEDS: Aspirin 81 MG Tab.EC PO SCH (08:09)
[2022-07-21] MEDS: Furosemide 40 MG Tab PO SCH (08:10)
[2022-07-21] MEDS: Nicotine 21 MG/24 Hr Patch TRDERM SCH (08:10)
[2022-07-21] MEDS ORDERED: Magnesium Sulfate/Water 4 GM in Premix Bag 1 BAG IV ONE (10:35)
[2022-07-21] MEDS ORDERED: Potassium Chloride 10 MEQ Tab.ER PO ONE (10:36)
[2022-07-21] MEDS: Furosemide 20 MG Tab PO SCH (11:08)
[2022-07-21] MEDS: Ondansetron 4 MG Tab.DIS PO PRN (11:28)
[2022-07-21] MEDS: Simethicone 80 MG Tab.Chew PO PRN ×2 (11:28→15:24)
[2022-07-21] MEDS ORDERED: Sodium Chloride 0.9% 10 ML Syringe FLUSH PRN (11:57)
[2022-07-21] MEDS ORDERED: Sodium Chloride 0.9% 50 ML SDV FLUSH ONE (12:30)
[2022-07-21] MEDS: Pseudoephedrine 30 MG Tab PO PRN (14:38)
[2022-07-21] MEDS: Melatonin 3 MG Tab PO SCH (21:11)
[2022-07-21] MEDS: Zolpidem 5 MG Tab PO PRN (21:11)
[2022-07-21] MEDS: rOPINIRole 1 MG Tab PO SCH (21:11)
[2022-07-21] MEDS: Mirtazapine 15 MG Tab PO SCH (21:12)
[2022-07-22] MEDS: Omeprazole 20 MG Cap.CR PO SCH ×3 (05:48→17:26)
[2022-07-22] MEDS: Levothyroxine 75 MCG Tab PO SCH ×2 (05:48→06:35)
[2022-07-22] MEDS: Furosemide 20 MG Tab PO SCH (08:21)
[2022-07-22] MEDS: Loratadine 10 MG Tab PO SCH (08:21)
[2022-07-22] MEDS: Aspirin 81 MG Tab.EC PO SCH (08:21)
[2022-07-22] MEDS: Acetaminophen 500 MG Tab PO SCH ×3 (08:21→20:52)
[2022-07-22] MEDS: Furosemide 40 MG Tab PO SCH (08:21)
[2022-07-22] MEDS: atorvaSTATin 10 MG Tab PO SCH (08:21)
[2022-07-22] MEDS: Oxybutynin 5 MG Tab.ER PO SCH ×2 (08:22→20:54)
[2022-07-22] MEDS: Nicotine 21 MG/24 Hr Patch TRDERM SCH (08:22)
[2022-07-22] MEDS ORDERED: Potassium Bicarbonate 25 MEQ Tab.EFF PO SCH (09:00)
[2022-07-22] MEDS: Potassium Chloride 20 MEQ Tab.ER PO SCH (10:44)
[2022-07-22] MEDS: Iron Polysaccharides Complex 150 MG Cap PO SCH (11:53)
[2022-07-22] MEDS: Simethicone 80 MG Tab.Chew PO PRN (13:15)
[2022-07-22] MEDS: Pseudoephedrine 30 MG Tab PO PRN (13:18)
[2022-07-22] MEDS: Melatonin 3 MG Tab PO SCH (20:51)
[2022-07-22] MEDS: Mirtazapine 15 MG Tab PO SCH (20:52)
[2022-07-22] MEDS: Zolpidem 5 MG Tab PO PRN (20:53)
[2022-07-22] MEDS: rOPINIRole 1 MG Tab PO SCH (20:53)
[2022-07-23] MEDS: Levothyroxine 75 MCG Tab PO SCH ×2 (06:16→06:30)
[2022-07-23] MEDS: Omeprazole 20 MG Cap.CR PO SCH ×3 (06:16→17:28)
[2022-07-23] MEDS: Furosemide 40 MG Tab PO SCH (08:08)
[2022-07-23] MEDS: atorvaSTATin 10 MG Tab PO SCH (08:08)
[2022-07-23] MEDS: Furosemide 20 MG Tab PO SCH (08:08)
[2022-07-23] MEDS: Loratadine 10 MG Tab PO SCH (08:09)
[2022-07-23] MEDS: Oxybutynin 5 MG Tab.ER PO SCH ×2 (08:09→20:52)
[2022-07-23] MEDS: Potassium Chloride 20 MEQ Tab.ER PO SCH (08:09)
[2022-07-23] MEDS: Acetaminophen 500 MG Tab PO SCH ×3 (08:09→20:52)
[2022-07-23] MEDS: Aspirin 81 MG Tab.EC PO SCH (08:09)
[2022-07-23] MEDS: Nicotine 21 MG/24 Hr Patch TRDERM SCH (08:10)
[2022-07-23 08:39] LABS: ANION GAP 7.5 mmol/L (5-15)
[2022-07-23] MEDS: Simethicone 80 MG Tab.Chew PO PRN (13:26)
[2022-07-23] MEDS: rOPINIRole 1 MG Tab PO SCH (20:48)
[2022-07-23] MEDS: Melatonin 3 MG Tab PO SCH (20:49)
[2022-07-23] MEDS: Mirtazapine 15 MG Tab PO SCH (20:50)
[2022-07-23] MEDS: Zolpidem 5 MG Tab PO PRN (20:52)
[2022-07-24] MEDS: Levothyroxine 75 MCG Tab PO SCH (07:19)
[2022-07-24] MEDS: Omeprazole 20 MG Cap.CR PO SCH ×2 (07:19→17:30)
[2022-07-24] MEDS: Nicotine 21 MG/24 Hr Patch TRDERM SCH (08:27)
[2022-07-24] MEDS: Potassium Chloride 20 MEQ Tab.ER PO SCH (08:27)
[2022-07-24] MEDS: atorvaSTATin 10 MG Tab PO SCH (08:27)
[2022-07-24] MEDS: Furosemide 40 MG Tab PO SCH (08:27)
[2022-07-24] MEDS: Aspirin 81 MG Tab.EC PO SCH (08:28)
[2022-07-24] MEDS: Acetaminophen 500 MG Tab PO SCH ×3 (08:28→20:33)
[2022-07-24] MEDS: Loratadine 10 MG Tab PO SCH (08:28)
[2022-07-24] MEDS: Oxybutynin 5 MG Tab.ER PO SCH ×2 (08:28→20:34)
[2022-07-24] MEDS: Iron Polysaccharides Complex 150 MG Cap PO SCH (12:27)
[2022-07-24] MEDS: Simethicone 80 MG Tab.Chew PO PRN ×2 (13:41→17:30)
[2022-07-24] MEDS: Ondansetron 4 MG Tab.DIS PO PRN (15:52)
[2022-07-24] MEDS: Melatonin 3 MG Tab PO SCH (20:33)
[2022-07-24] MEDS: rOPINIRole 1 MG Tab PO SCH (20:33)
[2022-07-24] MEDS: Mirtazapine 15 MG Tab PO SCH (20:34)
[2022-07-25] MEDS: Omeprazole 20 MG Cap.CR PO SCH ×2 (07:08→17:05)
[2022-07-25] MEDS: Levothyroxine 75 MCG Tab PO SCH (07:08)
[2022-07-25] MEDS: Pseudoephedrine 30 MG Tab PO PRN (07:44)
[2022-07-25] MEDS: Oxybutynin 5 MG Tab.ER PO SCH ×2 (08:27→20:49)
[2022-07-25] MEDS: Potassium Chloride 20 MEQ Tab.ER PO SCH (08:27)
[2022-07-25] MEDS: Aspirin 81 MG Tab.EC PO SCH (08:28)
[2022-07-25] MEDS: Furosemide 40 MG Tab PO SCH (08:28)
[2022-07-25] MEDS: Acetaminophen 500 MG Tab PO SCH ×3 (08:28→22:06)
[2022-07-25] MEDS: atorvaSTATin 10 MG Tab PO SCH (08:28)
[2022-07-25] MEDS: Loratadine 10 MG Tab PO SCH (08:28)
[2022-07-25] MEDS: Nicotine 21 MG/24 Hr Patch TRDERM SCH (08:28)
[2022-07-25] MEDS: Simethicone 80 MG Tab.Chew PO PRN ×3 (13:11→22:06)
[2022-07-25] MEDS: rOPINIRole 1 MG Tab PO SCH (20:49)
[2022-07-25] MEDS: guaiFENesin 600 MG Tab.ER PO PRN (20:49)
[2022-07-25] MEDS: Mirtazapine 15 MG Tab PO SCH (20:49)
[2022-07-25] MEDS: Melatonin 3 MG Tab PO SCH (22:05)
[2022-07-26] MEDS: Ondansetron 4 MG Tab.DIS PO PRN (06:27)
[2022-07-26] MEDS: Omeprazole 20 MG Cap.CR PO SCH (07:25)
[2022-07-26] MEDS: Levothyroxine 75 MCG Tab PO SCH (07:25)
[2022-07-26] MEDS: Pseudoephedrine 30 MG Tab PO PRN (07:32)
[2022-07-26] MEDS: Nicotine 21 MG/24 Hr Patch TRDERM SCH (08:35)
[2022-07-26] MEDS: atorvaSTATin 10 MG Tab PO SCH (08:35)
[2022-07-26] MEDS: Acetaminophen 500 MG Tab PO SCH (08:35)
[2022-07-26] MEDS: Loratadine 10 MG Tab PO SCH (08:35)
[2022-07-26] MEDS: Oxybutynin 5 MG Tab.ER PO SCH (08:36)
[2022-07-26] MEDS: Furosemide 40 MG Tab PO SCH (08:36)
[2022-07-26] MEDS: Potassium Chloride 20 MEQ Tab.ER PO SCH (08:36)
[2022-07-26] MEDS: Aspirin 81 MG Tab.EC PO SCH (08:36)
[2022-07-26 09:12] VITALS: BP 120/56; PULSE 117
[2022-07-26 10:22] LABS: ANION GAP 11.6 mmol/L (5-15)
== END 2022-07-26 11:35 | DRG 948 ==
LOC: KA.MS 07-17 12:18
PROVIDERS: ADMIT Family Medicine; ATTEND Family Medicine
DX: R53.81 Other malaise (principal); K56.609 Unspecified intestinal obstruction, unspecified as to partial versus complete obstruction; E83.42 Hypomagnesemia; E87.6 Hypokalemia; E87.70 Fluid overload, unspecified; Z66 Do not resuscitate; D50.9 Iron deficiency anemia, unspecified; E03.9 Hypothyroidism, unspecified; G25.81 Restless legs syndrome; F32.A Depression, unspecified; G47.00 Insomnia, unspecified; E78.00 Pure hypercholesterolemia, unspecified; F17.210 Nicotine dependence, cigarettes, uncomplicated; N32.81 Overactive bladder; M19.90 Unspecified osteoarthritis, unspecified site; G89.29 Other chronic pain; E53.8 Deficiency of other specified B group vitamins; M54.50 Low back pain, unspecified; Z79.82 Long term (current) use of aspirin; Z79.899 Other long term (current) drug therapy; Z98.890 Other specified postprocedural states
CPT/HCPCS: 36415; 80048; 80053; 83735; 85025; 97110-GP; 97161-GP; A9270-GY; J3475; J3490; U0002